=== PATIENT | female | born 1940 | race Hispanic/Latino ===

== ENCOUNTER 2019-09-09 14:12 | Inpatient (IN) | payer MEDICARE ==
[~2019-09-09] VITALS: Ht 154.9 cm; Wt 56.2 kg
[2019-09-09] MEDS ORDERED: ONDANSETRON HCL INJ 2MG/ML 2ML 2 MG/ML VIAL IV ONE (14:44)
[2019-09-09] MEDS ORDERED: FENTANYL CITRATE/PF 100MCG/2 ML INJ IV ONE (14:45)
--- NOTE | 2019-09-09 15:40 | NUR ---
PATIENT TO ROOM 6
[2019-09-09 16:20] LABS: BASOPHILS % 0.4 % (0.0-1.0); EOSINOPHILS % 0.3 % (0.0-6.0); HEMATOCRIT 34.2 % (34.2-44.1); HEMOGLOBIN 10.5 g/dL (12.0-16.0); LYMPHOCYTES # (AUTO) 0.6 (1.0-3.2); LYMPHOCYTES % 7.9 % (18.0-39.1); MEAN CORPUSCULAR HEMOGLOBIN 28.5 pg (28-32); MEAN CORPUSCULAR HGB CONC 30.7 g/dL (31-35); MEAN CORPUSCULAR VOLUME 92.7 fL (81-99); MONOCYTES # (AUTO) 0.3 (0.2-0.8); MONOCYTES % 3.4 % (4.4-11.3); NEUTROPHILS # (AUTO) 6.8 (2.1-6.9); NEUTROPHILS % 86.2 % (38.7-80.0); PLATELET COUNT 204 x10e3/uL (140-360); RED BLOOD COUNT 3.69 x10e6/uL (3.6-5.1); RED CELL DISTRIBUTION WIDTH 18.1 % (11.7-14.4)
--- NOTE | 2019-09-09 16:23 | Diagnostic Imaging Report ---
EXAMINATION: CHEST SINGLE (PORTABLE) INDICATION: Abdominal pain COMPARISON: None FINDINGS: LINES/TUBES:None LUNGS:The lungs are moderately inflated. There is perihilar fullness and indistinctness of the pulmonary vasculature. PLEURA:No pleural effusion or pneumothorax. MEDIASTINUM:The heart is mildly enlarged. Atherosclerotic calcifications of the thoracic aorta. BONES/SOFT TISSUES:No acute osseous injury. Left subclavian vascular stent. ABDOMEN:No free air under the diaphragm. IMPRESSION: Pulmonary interstitial edema and mild cardiomegaly. Signed by: Dodie Molina MD on 09/09/2019 4:20 PM
--- NOTE | 2019-09-09 16:30 | Emergency Department Note ---
History of Present Illnes History of Present Illness Chief Complaint: Abdominal Complaints History of Present Illness This is a 78 year old female who presents emergency department for left upper quadrant abdominal pain. Pain started today. She also has some nausea and vomiting. She has had this pain in the past is secondary to diverticulitis. She has not tried anything at home. Historian: Patient, Family Member Arrival Mode: Car Fabric Normalizer Required: No Onset (how long ago): day(s) (1) Location: LUQ Quality: Sharp Radiation: Reports non-radiation Severity: severe Onset quality: gradual Duration (how long): day(s) (1) Timing of current episode: constant Progression: worsening Chronicity: recurrent Relieving factors: none Exacerbating factors: none Associated symptoms: Reports denies other symptoms Treatments prior to arrival: none Past Medical/Family History Physician Review I have reviewed the patient's past medical and family history. Any updates have been documented here. Past Medical History Recent Fever: No Clinical Suspicion of Infectio: No New/Unexplained Change in Ment: No Past Medical History: Hypertension, Diabetes, DE, ESRD, Hemodyalisis, Hyperlipedemia Past Surgical History: Cholecysctectomy, Hip Replacement, Cataract Removal Social History Physically hurt or threatened: No Review of Systems Review of Systems Constitutional: Reports no symptoms, Reports as per HPI EENTM: Reports no symptoms Cardiovascular: Reports no symptoms Respiratory: Reports no symptoms Gastrointestinal: Reports no symptoms, Reports as per HPI, Reports abdominal pain (LUQ), Reports nausea, Reports vomiting Genitourinary: Reports no symptoms Musculoskeletal: Reports no symptoms Integumentary: Reports no symptoms Neurological: Reports no symptoms Psychological: Reports no symptoms Endocrine: Reports no symptoms Hematological/Lymphatic: Reports no symptoms Physical Exam Related Data Allergies: Coded Allergies: Penicillins (Verified Allergy, Unknown, 09/09/19) Triage Vital Signs Vital Signs Date Time Temp Pulse Resp B/P (MAP) Pulse Ox O2 Delivery O2 Flow Rate FiO2 09/09/19 14:23 98.2 81 18 230/95 95 Room Air Vital signs reviewed: Yes Physical Exam CONSTITUTIONAL Constitutional: Present well-developed, Present well-nourished, Present distressed HENT HENT: Present normocephalic, Present atraumatic, Present oropharynx clear/moist, Present nose normal HENT L/R: Present left ext ear normal, Present right ext ear normal EYES Eyes: Reports PERRL, Reports conjunctivae normal NECK Neck: Present ROM normal PULMONARY Pulmonary: Present effort normal, Present breath sounds normal CARDIOVASCULAR Cardiovascular: Present regular rhythm, Present heart sounds normal, Present capillary refill normal, Present normal rate GASTROINTESTINAL Abdominal: Present soft, Present nontender, Present bowel sounds normal, Present tender (LUQ) GENITOURINARY Genitourinary: Present exam deferred SKIN Skin: Present warm, Present dry MUSCULOSKELETAL Musculoskeletal: Present ROM normal NEUROLOGICAL Neurological: Present alert, Present oriented x 3, Present no gross motor or sensory deficits PSYCHOLOGICAL Psychological: Present mood/affect normal, Present judgement normal Results Laboratory Result Diagram: 09/09/19 1439 Laboratory Laboratory Tests Test 09/09/19 14:39 White Blood Count 7.84 x10e3/uL (4.8-10.8) Red Blood Count 3.69 x10e6/uL (3.6-5.1) Hemoglobin 10.5 g/dL (12.0-16.0) Hematocrit 34.2 % (34.2-44.1) Mean Corpuscular Volume 92.7 fL (81-99) Mean Corpuscular Hemoglobin 28.5 pg (28-32) Mean Corpuscular Hemoglobin Concent 30.7 g/dL (31-35) Red Cell Distribution Width 18.1 % (11.7-14.4) Platelet Count 204 x10e3/uL (140-360) Neutrophils (%) (Auto) 86.2 % (38.7-80.0) Lymphocytes (%) (Auto) 7.9 % (18.0-39.1) Monocytes (%) (Auto) 3.4 % (4.4-11.3) Eosinophils (%) (Auto) 0.3 % (0.0-6.0) Basophils (%) (Auto) 0.4 % (0.0-1.0) Neutrophils # (Auto) 6.8 (2.1-6.9) Lymphocytes # (Auto) 0.6 (1.0-3.2) Monocytes # (Auto) 0.3 (0.2-0.8) Eosinophils # (Auto) 0.0 (0.0-0.4) Basophils # (Auto) 0.0 (0.0-0.1) Absolute Immature Granulocyte (auto 0.14 x10e3/uL (0-0.1) Lab results reviewed: Yes Imaging Imaging results reviewed: Yes Diagnostics Tests Diagnostic test(s) reviewed: Yes Assessment & Plan Medical Decision Making MDM 78-year-old female with left sided abdominal pain. This has been recurrent and u sually due to her diverticulitis. She states her pain is similar to prior episodes. She has not had anything at home. Exam shows left-sided abdominal tenderness to palpation. CT abdomen and pelvis as well as labs are significant for abscess to L hip. Vanc/Cefepime given and cultures drawn. Discussed patient with Dr. [facility] who believes this is likely 2/2 chronic bursitis. Of note chronic umbilical hernia noted. Discussed patient with inpatient medicine who have agreed to admit for abdominal pain, intractable N/V and ortho eval in the AM for hip effusion. Assessment & Plan Final Impression: (1) Abdominal pain Depart Disposition: ADMITTED Last Vital Signs Date Time Temp Pulse Resp B/P (MAP) Pulse Ox O2 Delivery O2 Flow Rate FiO2 09/09/19 14:23 98.2 81 18 230/95 95 Room Air Medications in the ED Fentanyl Citrate 25 mcg ONCE ONCE IV ; Start 09/09/19 at 14:45; Stop 09/09/19 at 15:08; Status DC Ondansetron HCl 4 mg NOW ONCE IV ; Start 09/09/19 at 14:44; Stop 09/09/19 at 15:08; Status DC Clyde Dimas MD Sep 09, 2019 16:30
[2019-09-09 16:37] LABS: ALBUMIN 3.6 g/dL (3.5-5.0); ALBUMIN/GLOBULIN RATIO 0.7 (0.8-2.0); ANION GAP 20.7 mmol/L (8-16); CALCIUM 9.2 mg/dL (8.4-10.2); CREATININE, SERUM 4.83 mg/dL (0.57-1.11); POTASSIUM 3.7 mmol/L (3.5-5.1)
--- NOTE | 2019-09-09 16:57 | Diagnostic Imaging Report ---
EXAM: CT Abdomen and Pelvis WITH intravenous contrast INDICATION: Abdominal pain COMPARISON: None. TECHNIQUE: Abdomen and pelvis were scanned utilizing a multidetector helical scanner from the lung base to the pubic symphysis after administration of IV contrast. Coronal and sagittal reformations were obtained. Routine protocol was performed. Scan was performed during portal venous phase. IV CONTRAST: 100mL of Isovue 370 ORAL CONTRAST: Water RADIATION DOSE: Total DLP: 238 mGy*cm Dose modulation, iterative reconstruction, and/or weight based adjustment of the mA/kV was utilized to reduce the radiation dose to as low as reasonably achievable. FINDINGS: LOWER THORAX: Smooth interlobular septal thickening and mild diffuse ground glass opacities consistent with pulmonary edema. Multichamber cardiomegaly. Moderate pericardial effusion. HEPATOBILIARY: Diffuse hepatic steatosis. No focal liver lesion. Status post cholecystectomy. Mild biliary ductal dilation likely attributable to reservoir effect. SPLEEN: No splenomegaly. PANCREAS: No focal masses or ductal dilatation. ADRENALS: No adrenal nodules. 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 No renal calculi, hydronephrosis, or solid renal mass lesion. PELVIC ORGANS/BLADDER: Fibroid uterus. PERITONEUM / RETROPERITONEUM: No free air or free fluid. LYMPH NODES: Prominent left pelvic sidewall lymph nodes, likely reactive. VESSELS: Dense atherosclerotic calcifications of the nonaneurysmal abdominal aorta and major branches. GI TRACT: Diverticulosis without CT evidence of diverticulitis. No abnormal bowel thickening. No bowel obstruction. Normal appendix. BONES AND SOFT TISSUES: Status post left proximal femur ORIF. Evaluation of the prosthesis is limited due to streak artifact. An 8.9 x 4.4 cm fluid collection lateral to the greater trochanter has a thick enhancing wall and is concerning for abscess versus infected joint effusion. Mild diffuse osteopenia. No acute osseous injury. Moderate fat-containing ventral umbilical hernia. No herniated bowel. IMPRESSION: Status post left proximal femur ORIF. 8.9 x 4.4 cm fluid collection lateral to the left greater trochanter has a thick enhancing wall and is concerning for abscess versus septic joint effusion. Cardiomegaly, pulmonary edema, and moderate pericardial effusion. Diffuse hepatic steatosis. RECOMMENDATIONS: Left hip arthrocentesis. The above findings were discussed with Dr. Dimas on 09/09/2019 4:39 PM, who responded indicating that the communication was understood. Signed by: Dodie Molina MD on 09/09/2019 4:54 PM
[2019-09-09] MEDS ORDERED: SODIUM CHLORIDE 0.9% 50ML 50 ML ONE (17:01)
[2019-09-09] MEDS ORDERED: IOPAMIDOL 370 MG/ML 200 ML INFUS..BTL INJ ONE (17:01)
[2019-09-09] MEDS ORDERED: CEFEPIME 2 GM/NS 0.9% 100 ML 100 ML IV SCH ×2 (17:30)
[2019-09-09] MEDS ORDERED: HYDRALAZINE HCL 20 MG/ML VIAL IV STA (17:35)
--- NOTE | 2019-09-09 17:47 | Diagnostic Imaging Report ---
Exam: Left hip 2 views History: Pain Comparison: None. Findings: No acute fracture. Fixation of the left femur with 2 screws in the femoral neck and intramedullary alanna for prior fracture with healed post traumatic deformity. Lucency around the femoral neck screws. Vascular calcifications. Impression: No acute osseous abnormality Signed by: Dr. Uche Carrero M.D. on 09/09/2019 5:43 PM
--- NOTE | 2019-09-09 17:56 | NUR ---
LACTIC ACID/BLOOD CULTURES DRAWN
[2019-09-09] MEDS ORDERED: CEFEPIME 1GM/NS 0.9% 50 ML 50 ML IV SCH (18:00)
--- NOTE | 2019-09-09 18:00 | NUR ---
DR. JACOBO AWARE BLOOD PRESSURE IS ELEVATED
[2019-09-09] MEDS: CEFEPIME 1GM/NS 0.9% 50 ML 50 ML IV SCH (18:10)
[2019-09-09] MEDS: VANCOMYCIN 500MG/NS 0.9% 100ML 100 ML IV SCH (18:52)
[2019-09-09] MEDS ORDERED: ONDANSETRON HCL INJ 2MG/ML 2ML 2 MG/ML VIAL IV PRN (19:00)
[2019-09-09 19:16] LABS: BILIRUBIN,URINE NEGATIVE (NEGATIVE); CLARITY,URINE SL CLOUDY (CLEAR); COLOR,URINE STRAW (YELLOW); KETONES,URINE TRACE (NEGATIVE); LEUKOCYTE ESTERASE ,URINE NEGATIVE (NEGATIVE); NITRITE,URINE NEGATIVE (NEGATIVE); PROTEIN,URINE DIPSTICK >=300 (NEGATIVE); URINE UROBILINOGEN 0.2 mg/dL (0.2 - 1)
[2019-09-09 19:28] LABS: BACTERIA,URINE MODERATE /HPF
[2019-09-09] MEDS ORDERED: DEXTROSE 50% SYRINGE 50 ML IV PRN (19:45)
--- NOTE | 2019-09-09 19:55 | NUR ---
2ND SET OF BLOOD CULTURES AND LACTIC OBTAINED
[2019-09-09] MEDS ORDERED: FENTANYL CITRATE/PF 100MCG/2 ML INJ IV SCH (20:00)
--- OUTSIDE RECORDS SUMMARY | 2019-09-09 20:30 | XMS REPORT | Continuity of Care Document ---
Author Author [email or web address] [email or web address] Address Unknown Phone Unavailable Care Team Providers Care Hog Tender Name Role Phone [employer] Unavailable Un available Problems Problem Status Onset Date Classification Date Reported Comments Source Onychomycosis - Dermatophytosis of nail Active Diagnosis 01/30/2014 Isaias Renes myalgia/myositis Active Diagnosis 01/30/2014 Isaias A Maislos Arthritis Active Diagnosis 01/30/2014 Isaias Renes Diabetes IDDM Vas Active Diagnosis 01/30/2014 Isaias A Maislos Pain Active Diagnosis 01/30/2014 Isaias Vinson Bursitis of Achilles Tendonitis Active Diagnosis 1 04/02/2013 Isaias Vinson Onychomycosis Active Problem 06/18/2014 [facility] Ingrowing nail Active Problem 06/18/2014 [facility] Diabetes mellitus-NID Active Problem 06/18/2014 [facility] Hammer toe Active Problem 06/18/2014 [facility] Medications Medication Details Route Status Patient Instructions Ordering Provider Order Date Source Lantus Unknown NA Active Mais los Isaias A Maislos Vytorin Unknown NA Active Mais los Isaias A Maislos Clonidine HCl Unknown NA Active Mais los Isaias A Maislos GlipiZIDE Unknown NA Active Mais los Isaias A Maislos Metformin HCl Unknown NA Active Mais los Isaias A Maislos Protonix Unknown NA Active Mais los Isaias A Maislos Cartia XT Unknown NA Active Mais los Isaias A Maislos Allergies, Adverse Reactions, Alerts Substance Category Reaction Severity Reaction type Status Date Reported Comments Source Bactrim Adverse Reaction Info Not Available Adverse Reaction Active 01/14/2014 Isaias Vinson Immunizations No Data Provided for This Section Results No Data Provided for This Section Pathology Reports No Data Provided for This Section Diagnostic Reports No Data Provided for This Section Consultation Notes No Data Provided for This Section Discharge Summaries No Data Provided for This Section History and Physicals No Data Provided for This Section Vital Signs Vital Sign Value Date Comments Source Weight 145 01/14/2014 Isaias A Maislos Height 61 1 03/17/2013 Isaias A Maislos Heart Rate 71 01/14/2014 Isaias A Maislos Diastolic (mm Hg) 66 01/14/2014 Isaias A Maislos Systolic (mm Hg) 141 01/14/2014 Isaias A Maislos Weight 145 08/14/2013 Isaias A Maislos Height 61 0 08/14/2013 Isaias A Maislos Heart Rate 85 08/14/2013 Isaias A Maislos Diastolic (mm Hg) 105 08/14/2013 Isaias A Maislos Systolic (mm Hg) 196 08/14/2013 Isaias A Maislos Weight 145 05/06/2013 Isaias A Maislos Height 61 0 05/06/2013 Isaias A Maislos Heart Rate 85 05/06/2013 Isaias A Maislos Diastolic (mm Hg) 105 05/06/2013 Isaias A Maislos Systolic (mm Hg) 196 05/06/2013 Isaias A Maislos Weight 145 03/04/2013 Isaias A Maislos Height 61 0 03/04/2013 Isaias A Maislos Heart Rate 85 03/04/2013 Isaias A Maislos Diastolic (mm Hg) 105 03/04/2013 Isaias A Maislos Systolic (mm Hg) 196 03/04/2013 Isaias A Maislos Encounters Location Location Details Encounter Type Encounter Number Reason For Visit Attending Provider ADM Date DC Date Status Source Isaias Vinson DPM, [place] Follow-Up [id number] 03/04/19 14 03/04/2013 Isaias Carlos Maislos Isaias Carlos AARON Vinson PA Follow-Up [id number] 03/04/19 14 03/04/2013 [facility] Isaias Vinson, NICOLEM, PA Follow-Up [id number] 03/04/19 14 03/04/2013 Isaias Vinson, DPM, PA Follow-Up [id number] 03/04/19 14 03/04/2013 Isaias Vinson, NICOLEM, PA Follow-Up [id number] 03/04/19 14 03/04/2013 Isaias Vinson, AARON, PA Follow-Up [id number] 05/07/19 14 05/06/2013 Isaias Vinson, AARON, PA Follow-Up [id number] 05/07/19 14 05/06/2013 [facility] Isaias Vinson, AARON, PA Follow-Up [id number] 05/07/19 14 05/06/2013 Isaias Vinson, AARON, PA Follow-Up [id number] 05/07/19 14 05/06/2013 Isaias Vinson DPM, PA Follow-Up [id number] 08/15/19 14 08/14/2013 [facility] Isaias Vinson DPM, PA Follow-Up [id number] 08/15/19 14 08/14/2013 Isaias Vinson, DPM, PA Follow-Up [id number] 08/15/19 14 08/14/2013 Isaias Vinson, DPM, PA Follow-Up [id number] 01/15/20 14 01/14/2014 [facility] Isaias Vinson, DPM, PA Follow-Up [id number] 01/15/20 14 01/14/2014 Isaias Vinson [facility] diabetic shoes [id number] 06/18/19 15 06/17/2014 [facility] Procedures No Data Provided for This Section Assessment and Plan No Data Provided for This Section Plan of Care No Data Provided for This Section Social History Social History Date Source Social History ElementQualifiersDate Rep orted Tobacco Use: . Are you a:: never smoker June 17, 2014 06/17/2014 [facility] Social History ElementQualifiersDate Rep orted Illegal Drugs no. Jan 14, 2014 Tobacco Use: no. Are you a:: never smoker Jan 14, 2014 Alcohol: no. Jan 14, 2014 01/14/2014 Isaias Vinson Family History Value Date S ource QualifierDescriptionCommentDate Reported Father heart attack Oct 22, 2013 10/29/2013 Isaias Vinson QualifierDescriptionCommentDate Reported Father heart attack May 06, 2013 05/11/2013 Isaias Vinson QualifierDescriptionCommentDate Reported Father heart attack Mar 04, 2013 03/09/2013 Isaias Vinson Advance Directives No Data Provided for This Section Functional Status No Data Provided for This Section
--- OUTSIDE RECORDS SUMMARY | 2019-09-09 20:30 | XMS REPORT ---
Author VIVEK [facility] eClinicalWorks Address Unknown Phone Unavailable Care Team Providers Care Front Desk Host Name Role Phone Sekou Bueno CP Unavailable Encounters Encounter Location Date Follow-Up Isaias Vinson [facility] Jan 14, 2014 diabetic shoes [facility] June 17, 2014 Follow-Up [facility]aias [facility] Mar 04, 2013 Follow-Up [facility]as [facility] May 06 4 Follow-Up [facility]as [facility] August 14, 2013 Problems Problem Type Condition ICD-9 Code Onset Dates Condition Statu s Problem Onychomycosis 110.1 Active Problem Ingrowing nail 703.0 Active Problem Diabetes mellitus-NID 250.00 Active Problem Hammer toe 735.4 Active Social History Social History Element Qualifiers Date Reported Tobacco Use: . Are you a:: never smoker June 17 Summary Purpose eClinicalWorks Submission
--- OUTSIDE RECORDS SUMMARY | 2019-09-09 20:30 | XMS REPORT ---
Author Author Natalie Vinson [facility] eClinicalWorks Address Unknown Phone Unavailable Care Team Providers Care White Metal Caster Name Role Phone Isaias Vinson Unavailable Allergies, Adverse Reactions, Alerts Substance Reaction Event Type Bactrim Info Not Available Drug Allergy Encounters Encounter Location Date Follow-Up [facility] Mar 04, 2013 Follow-Up [facility] May 06 4 Follow-Up [facility] August 14, 2013 Problems Problem Type Condition ICD-9 Code Onset Dates Condition Statu s Assessment Onychomycosis - Dermatophytosis of nail 110.1 Active Assessment myalgia/myositis 729.1 Active Assessment Arthritis 716.97 Active Assessment Diabetes IDDM Vas 250.71 Active Assessment Pain 729.5 Active Problem Onychomycosis - Dermatophytosis of nail 110.1 Active Problem Pain 729.5 Active Problem Arthritis 716.97 Active Problem Diabetes IDDM Vas 250.71 Active Assessment Bursitis of Achilles Tendonitis 726.71 Active Problem myalgia/myositis 729.1 Active Problem Bursitis of Achilles Tendonitis 726.71 Active Medications Medication Code System Code Instructions Start Date End Date Status D[facility] [address] Active Unknown Cartia XT [facility] [address]-49 Active Unknown Metformin HCl [facility] [address]-33 Active Unk nown Lantus [facility] [address]-42 Active Unknown Vytorin [facility] [address]-49 Active Unknown Clonidine HCl [facility] [address]-12 Active Unk nown Protonix [facility] [address]-40 Active Unknown Social History Social History Element Qualifiers Date Reported Illegal Drugs no. Oct 22, 2013 Tobacco Use: no. Are you a:: never smoker Oct 22, 2013 Alcohol: no. Oct 22, 2013 Family history Qualifier Description Comment Date Reported Father heart attack Oct 22, 2013 Vital Signs Date/Time: August 14, 2013 Weight 145 lbs Height 61 in Cardiac Monitoring Heart Rate 85 /min Blood Pressure Diastolic 105 mm Hg Blood Pressure Systolic 196 mm Hg Summary Purpose eClinicalWorks Submission
--- OUTSIDE RECORDS SUMMARY | 2019-09-09 20:30 | XMS REPORT ---
Author Author Natalie Vinson Organization [employer] Address Unknown Phone Unavailable Care Team Providers Care Squeezer Operator Name Role Phone Isaias Vinson Unavailable Allergies, Adverse Reactions, Alerts Substance Reaction Event Type Bactrim Info Not Available Drug Allergy Encounters Encounter Location Date Follow-Up [facility] Mar 04, 2013 Follow-Up [facility] May 06 4 Problems Problem Type Condition ICD-9 Code Onset [...] Start Date End Date Status Dosage GlipiZIDE [facility] [address]-72 Active Unknown Vytorin [facility] [address]-46 Active Unknown Clonidine HCl [facility] [address]-21 Active Unkn own Metformin HCl [facility] [address]-20 Active Unkn own Protonix [facility] [address]-71 Active Unknown Lantus [facility] [address]-95 Active Unknown Cartia XT [facility] [address]-25 Active Unknown Social History Social History Element Qualifiers Date Reported Illegal Drugs no. May 06, 2013 Tobacco Use: no. Are you a:: never smoker April Alcohol: no. May 06, 2013 Family history Qualifier Description Comment Date Reported Father heart attack May 06, 2013 Vital Signs Date/Time: May 06, 2013 Weight 145 lbs Height 61 inches Cardiac Monitoring Heart Rate 85 Beats per Minute Blood Pressure Diastolic 105 mm Hg Blood Pressure Systolic 196 mm Hg Summary Purpose eClinicalWorks Submission
--- OUTSIDE RECORDS SUMMARY | 2019-09-09 20:30 | XMS REPORT ---
Author Author Natalie Vinson Organization [employer]Works Address Unknown Phone Unavailable Care Team Providers Care Fisher Trap Name Role Phone Isaias Vinson Unavailable Allergies, Adverse Reactions, Alerts Substance Reaction Event Type Bactrim Info Not Available Drug Allergy Encounters Encounter Location Date Follow-Up [facility] Mar 04, 2013 Problems Problem Type Condition ICD-9 Code [...] Instructions Start Date End Date Status Dosage Lantus [facility] [place] [address]-76 100 UNIT/ML Subcutaneous Once a day Active 0.02 ml Vytorin [facility] [place]] [address]-41 Active Unknown Clonidine HCl [facility] [place] [address]-54 Active Unkn own GlipiZIDE [facility] [place] 2] [address]-22 Active Unknown Metformin HCl [facility] [place] 2] [address]-33 Active Unkn own Protonix [facility] [place] 2] [address]-57 Active Unknown Cartia XT [facility] [place] 2] [address]-63 Active Unknown Social History Social History Element Qualifiers Date Reported Illegal Drugs no. Mar 04, 2013 Tobacco Use: no. Are you a:: never smoker Mar 04, 2013 Alcohol: no. Mar 04, 2013 Family history Qualifier Description Comment Date Reported Father heart attack Mar 04, 2013 Vital Signs Date/Time: Mar 04, 2013 Weight 145 lbs Height 61 inches Cardiac Monitoring Heart Rate 85 Beats per Minute Blood Pressure Diastolic 105 mm Hg Blood Pressure Systolic 196 mm Hg Summary Purpose eClinicalWorks Submission
--- OUTSIDE RECORDS SUMMARY | 2019-09-09 20:30 | XMS REPORT ---
Author Author Natalie Vinson [facility] eClinicalWorks Address Unknown Phone Unavailable Care Team Providers Care Wire Roller Name Role Phone Isaias Vinson Unavailable Allergies, Adverse Reactions, Alerts Substance Reaction Event Type Bactrim Info Not Available Drug Allergy Encounters Encounter Location Date Follow-Up [facility] Jan 14, 2014 Follow-Up [facility] Mar 04, 2013 Follow-Up [facility] May 06 Follow-Up [facility] August 14, [...] Instructions Start Date End Date Status Dosage Protonix [facility] [address]-37 Active Unknown [facility] [address]-16 Active Unknown [facility] [address]-36 Active Unk nown [facility] [address]-99 Active Unknown Metformin HCl [facility] [address]-45 Active Unk nown Lantus [facility] [address]-07 Active Unknown Cartia XT [facility] [address]-05 Active Unknown Social History Social History Element Qualifiers Date Reported Illegal Drugs no. Jan 14, 2014 Tobacco Use: no. Are you a:: never smoker Jan 14, 2014 Alcohol: no. Jan 14, 2014 Vital Signs Date/Time: Jan 14, 2014 Weight 145 lbs Height 61 in Cardiac Monitoring Heart Rate 71 /min Blood Pressure Diastolic 66 mm Hg Blood Pressure Systolic 141 mm Hg Summary Purpose eClinicalWorks Submission
--- OUTSIDE RECORDS SUMMARY | 2019-09-09 20:31 | XMS REPORT | Continuity of Care Document ---
Author Author [facility] t Organization [facility] Address [address] [place] [address] Phone Unavailable Care Team Providers Care Artist Representative Name Role Phone Barbie Dimas Unavailable Payers Payer Name Policy Type Policy Number Effective Date Expiration Date S ource Problems Condition Name Condition Details Condition Category Status Onset Date Resolution Date Last Treatment Date Treating Clinician Comments Source myalgia/myositis myal harshal/myositis Active Diagnosis 01/30/2014 Isaias Renes Diagnosis Active 2014-01-30 03:03:3 5 Dee Hoffmann Arthritis Arth ritis Active Diagnosis 01/30/2014 Isaias A Edgards Diagnosis Active 2014-01-30 03:03:35 Dee Hoffmann Diabetes IDDM Vas Diab etes IDDM Vas Active Diagnosis 01/30/2014 Isaias A Edgards Diagnosis Active 2014-01-30 03:03:3 5 Dee Hoffmann Pain Pain Active Diagnosis 01/30/2014 Isaias A Edgards Diagnosis Active 2014-01-30 03:03:35 Dee Hoffmann Bursitis of Achilles Tendonitis Bursitis of Achilles Tendonitis Active Diagnosis 01/30/2014 Isaias A Edgards Diagnosis Active 2014-01-30 03:03:35 Dee Hoffmann Onychomycosis Onyc homycosis Active Problem 06/18/2014 [facility] Problem Active 2014-06-18 02:11:16 Dee Hoffmann Ingrowing nail Ingr owing nail Active Problem 06/18/2014 [facility] Problem Active 2014-06-18 02:11:16 Dee Hoffmann Diabetes mellitus-NID Diab etes mellitus-NID Active Problem 06/18/2014 [facility] Problem Active 2014-06-18 0 2:11:16 Dee Hoffmann Hammer toe [facility] toe Active Problem 06/18/2014 [facility] Problem Active 2014-06-18 02:11:16 Dee Hoffmann Allergies, Adverse Reactions, Alerts Allergy Name Allergy Type Status Severity Reaction(s) Onset Date Inacti ve Date Treating Clinician Comments Source ranitidine HCl DA Active U 2019-07-26 00:00:00 [facility] Penicillins DA Active U 2019-07-26 00:00:00 [facility] sulfamethoxazole DA Active ND 2019-07-26 00:00:00 [facility] trimethoprim DA Active ND 2019-07-26 00:00:00 [facility] Penicillins DA Active U 2018-12-12 00:00:00 [facility] ranitidine HCl DA Active U 2018-10-19 00:00:00 [facility] sulfamethoxazole DA Active ND 2018-10-19 00:00:00 [facility] trimethoprim DA Active ND 2018-10-19 00:00:00 [facility] sulfamethoxazole DA Active ND 2014-11-14 00:00:00 [facility] trimethoprim DA Active ND 2014-11-14 00:00:00 [facility] Bactrim Bactrim Active Info Not Available 2014-01-14 00:00:00 Dee Hoffmann sulfamethoxazole DA Active U 2012-09-26 00:00:00 [facility] trimethoprim DA Active U 2012-09-26 00:00:00 [facility] ranitidine HCl DA Active U 2012-09-26 00:00:00 [facility] Family History Family Member Diagnosis Comments Start Date Stop Date Source Unknown Family Member Family History 2013-03-09 02:45:24 2 02:45:24 Dee Hoffmann Social History Social Habit Start Date Stop Date Quantity Comments Source TobaccoUse: 2014-06-17 00:00:00 2014-06-17 00:00:00 [facility] IllegalDrugs 2014-01-14 00:00:00 2014-01-14 00:00:00 [facility] Medications Ordered Medication Name Filled Medication Name Start Date Stop Da te Current Medication? Ordering Clinician Indication Dosage Frequency Signature (SIG) Comments Components Source Carloztus 2014-01-30 03:03:35 Yes Isaias Vinson Un known [facility] Vytorin 2014-01-30 03:03:35 Yes Isaias Velazquezansleygetachew U nknown [facility] Clonidine HCl 2014-01-30 03:03:35 Yes Isaias Vinson Unknown [facility] GlipiZIDE 2014-01-30 03:03:35 Yes Isaias Vinson Unknown [facility] Metformin HCl 2014-01-30 03:03:35 Yes Isaias Vinson Unknown [facility] Protonix 2014-01-30 03:03:35 Yes Isaias Vinson Unknown [facility] Cartia XT 2014-01-30 03:03:35 Yes Isaias Vinson Unknown [facility] Vital Signs Vital Name Observation Time Observation Value Comments Source Weight 2014-01-14 16:00:00 [facility] Height 2014-01-14 16:00:00 [facility] Heart Rate 2014-01-14 16:00:00 [facility] Diastolic (mm Hg) 2014-01-14 16:00:00 [facility] Systolic (mm Hg) 2014-01-14 16:00:00 [facility] Weight 2013-08-14 20:15:00 [facility] Height 2013-08-14 20:15:00 [facility] Heart Rate 2013-08-14 20:15:00 [facility] Diastolic (mm Hg) 2013-08-14 20:15:00 [facility] Systolic (mm Hg) 2013-08-14 20:15:00 [facility] Weight 2013-05-06 15:30:00 [facility] Height 2013-05-06 15:30:00 [facility] Heart Rate 2013-05-06 15:30:00 [facility] Diastolic (mm Hg) 2013-05-06 15:30:00 [facility] Systolic (mm Hg) 2013-05-06 15:30:00 [facility] Weight 2013-03-04 15:30:00 [facility] Height 2013-03-04 15:30:00 [facility] Heart Rate 2013-03-04 15:30:00 [facility] Diastolic (mm Hg) 2013-03-04 [facility] Systolic (mm Hg) 2013-03-04 15:30:00 [facility] Procedures This patient has no known procedures. Encounters Start Date/Time End Date/Time [facility]counter Type [facility] ID Source 2019-07-04 14:39:00 2019-07-04 14:39:00 Outpatient E [id number] [facility] 2014-06-17 11:04:00 2014-06-17 11:04:00 [facility] [id number] [employer]ClinicalWorks 2014-01-14 10:00:00 2014-01-14 10:00:00 Outpatient Isaias Vinson DPM, [place] [address] eClinicalWork s 2013-08-14 15:15:00 2013-08-14 15:15:00 Outpatient Isaias Vinson DPM, [place] [address] eClinicalWork s 2013-05-06 10:30:00 2013-05-06 10:30:00 Outpatient Isaias Vinson DPM, [place] [address] eClinicalWork s 2013-03-04 09:30:00 2013-03-04 09:30:00 Outpatient Isaias Vinson DPM, [place] [address] eClinicalWork s Results Test Description Test Time Test Comments Results Result Comments Source HIP LEFT 2-3 VW (+/- PELVIS) 2019-09-09 17:42:00 [place] [address] Patient Name: VIVEK LÓPEZ MR #: [id number] : 1940 Age/Sex: 78/F Req #: [id number] Adm Physician: Ordered by: Clyde Dimas MD Report #: [id number] Location: ER Room/Bed: Procedure: [id number] DX/HIP LEFT 2-3 VW (+/- PELVIS) Exam Date: Exam Time: REPORT STATUS: Signed Exam: Left hip 2 views History: Pain Comparison: None. Findings: No acute fracture. Fixation of the left femur with 2 screws in the femoral neck and intramedullary alanna for prior fracture with healed post traumatic deformity. Lucency around the femoral neck screws. Vascular calcifications. Impression: No acute osseous abnormality Signed by: Dr. Spencer Oscar M.D. on 09/09/2019 5:43 PM Dictated By: SPENCER OSCAR MD 42 Transcribed By: ELMER on 09/09/191742 COPY TO: Clyde Dimas MD CT ABDOMEN/PELVIS W 2019-09-09 16:39:00 [place] [address] Patient Name: VIVEK LÓPEZ MR #: [id number] : 1940 Age/Sex: 78/F Req #: [id number] Adm Physician: Ordered by: Clyde Dimas MD Report #: [id number] Location: ER Room/Bed: Procedure: [id number] CT/CT ABDOMEN/PELVIS W Exam Date: 09/09/19 Exam Time: 1615 REPORT STATUS: Signed EXAM: CT Abdomen and Pelvis WITH intravenous contrast INDICATION: Abdominal pain COMPARISON: None. TECHNIQUE: Abdomen and pelvis were scanned utilizing a multidetector helical scanner from the lung base to the pubic symphysis after administration of IV contrast. Coronal and sagittal reformations were obtained. Routine protocol was performed. Scan was performed during portal venous phase. IV CONTRAST: 100mL of Isovue 370 ORAL CONTRAST: Water RADIATION DOSE: Total DLP: 238 mGy*cm Dose modulation, iterative reconstruction, and/or weight based adjustment of the mA/kV was utilized to reduce the radiation dose to as low as reasonably achievable. FINDINGS: LOWER THORAX: Smooth interlobular septal thickening and mild diffuse ground glass opacities consistent with pulmonary edema. Multichamber cardiomegaly. Moderate pericardial effusion. HEPATOBILIARY: Diffuse hepatic steatosis. No focal liver lesion. Status post cholecystectomy. Mild biliary ductal dilation likely attributable to reservoir effect. SPLEEN: No splenomegaly. PANCREAS: No focal masses or ductal dilatation. ADRENALS: No adrenal nodules. 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 No renal calculi, hydronephrosis, or solid renal mass lesion. PELVIC ORGANS/BLADDER: Fibroid uterus. PERITONEUM / RETROPERITONEUM: No free air or free fluid. LYMPH NODES: Prominent left pelvic sidewall lymph nodes, likely reactive. VESSELS: Dense atherosclerotic calcifications of the nonaneurysmal abdominal aorta and major branches. GI TRACT: Diverticulosis without CT evidence of diverticulitis. No abnormal bowel thickening. No bowel obstruction. Normal appendix. BONES AND SOFT TISSUES: Status post left proximal femur ORIF. Evaluation of the prosthesis is limited due to streak artifact. An 8.9 x 4.4 cm fluid collection lateral to the greater trochanter has a thick enhancing wall and is concerning for abscess versus infected joint effusion. Mild diffuse osteopenia. No acute osseous injury. Moderate fat- containing ventral umbilical hernia. No herniated bowel. IMPRESSION: Status post left proximal femur ORIF. 8.9 x 4.4 cm fluid collection lateral to the left greater trochanter has a thick enhancing wall and is concerning for abscess versus septic joint effusion. Cardiomegaly, pulmonary edema, and moderate pericardial effusion. Diffuse hepatic steatosis. RECOMMENDATIONS: Left hip arthrocentesis. The above findings were discussed with Dr. Dimas on 09/09/2019 4:39 PM, who responded indicating that the communication was understood. Signed by: Grey Garcia MD on 09/09/2019 4:54 PM Dictated By: GREY GARCIA MD 53 Transcribed By: ELMER on 09/09/191653 COPY TO: Clyde Dimas MD CHEST SINGLE (PORTABLE) 2019-09-09 16:18:00 [place] [address] Patient Name: VIVEK LÓPEZ MR #: [id number] : 1940 Age/Sex: 78/F Req #: [id number] Adm Physician: Ordered by: Clyde Dimas MD Report #: [id number] Location: ER Room/Bed: Procedure: [id number] DX/CHEST SINGLE (PORTABLE) Exam Date: 09/09/19 Exam Time: 1600 REPORT STATUS: Signed EXAMINATION: CHEST SINGLE (PORTABLE) INDICATION: Abdominal pain COMPARISON: None FINDINGS: LINES/TUBES:None LUNGS:The lungs are moderately inflated. There is perihilar fullness and indistinctness of the pulmonary vasculature. PLEURA:No pleural effusion or pneumothorax. MEDIASTINUM:The heart is mildly enlarged. Atherosclerotic calcifications of the thoracic aorta. BONES/SOFT TISSUES:No acute osseous injury. Left subclavian vascular stent. ABDOMEN:No free air under the diaphragm. IMPRESSION: Pulmonary interstitial edema and mild cardiomegaly. Signed by: Grey Garcia MD on 09/09/2019 4:20 PM Dictated By: GREY GARCIA MD 19 Transcribed By: ELMER on 09/09/191619 COPY TO: Clyde Dimas MD AG HEPAT B SURF 2019-08-24 12:45:00 Test Item AG HEPAT B SURF (test code = HBSAG) Nonreactive Index Nonreactive BASIC METABOLIC [id number] 07:37:00* Test Item Value Reference Range Interpretation Comments SODIUM (test code = NA) 136 mmol/L 136-145 N POTASSIUM (test code = K) 3.9 mmol/L 3.5-5.1 N CHLORIDE (test code = CL) 98.0 mmol/L 98-107 N CARBON DIOXIDE (test code = CO2) 31.0 mmol/L 21-32 N ANION GAP (test code = GAP) 10.9 10-20 N GLUCOSE (test code = GLU) 131 mg/dL 74-106 H BLOOD UREA NITROGEN (test code = BUN) 24 mg/dL 7-18 H GLOMERULAR FILTRATION RATE (test code = GFR) 9 mL/min >=60 Estimated GFR by using Modified MDRD formula.Chronic kidney disease is defined as either kidney damageor GFR <60 mL/min/1.73 m2 for >3 months. CREATININE (test code = CREAT) 4.50 mg/dL 0.55-1.02 H Note change in reference range due to change in reagent. BUN/CREATININE RATIO (test code = BUN/CREA) 5.3 10-20 L CALCIUM (test code = CA) 7.9 mg/dL 8.5-10.1 L [id number] 07:37:00* Test Item Value Reference Range Interpretation Comments ALBUMIN (test code = ALB) 2.7 g/dL 3.4-5.0 L BASIC METABOLIC [id number] 07:33:00* Test Item Value Reference Range Interpretation Comments SODIUM (test code = NA) 136 mmol/L 136-145 N POTASSIUM (test code = K) 3.9 mmol/L 3.5-5.1 N CHLORIDE (test code = CL) 98.0 mmol/L 98-107 N CARBON DIOXIDE (test code = CO2) mmol/L 21-32 ANION GAP (test code = GAP) 10-20 GLUCOSE (test code = GLU) mg/dL 74-106 BLOOD UREA NITROGEN (test code = BUN) mg/dL 7-18 GLOMERULAR FILTRATION RATE (test code = GFR) mL/min >=60 CREATININE (test code = CREAT) mg/dL 0.55-1.02 BUN/CREATININE RATIO (test code = BUN/CREA) 10-20 CALCIUM (test code = CA) mg/dL 8.5-10.1 [id number] 07:33:00* Test Item Value Reference Range Interpretation Comments ALBUMIN (test code = ALB) g/dL 3.4-5.0 Novel Coronavirus 2019 [id number] 14:06:00* Test Item Value Reference Range Interpretation Comments Novel Coronavirus 2019 nCoV (test code = COVID19) Negative Nega tive LIPID PROFILE (CORONARY RISK)2019-08-22 07:52:00* Test Item Value Reference Range Interpretation Comments TRIGLYCERIDES (test code = TRIG) 101 mg/dL 20-150 N CHOLESTEROL (test code = CHOL) 114 mg/dL 0-200 N CHOLESTEROL/HDL RATIO (test code = CHOLHDL) 2.0 RATIO 0-4.9 N RISK ASSOCIATED WITH CHOL/HDL RATIOS: Risk Male Female1/2 AVERAGE 3.43 3.27AVERAGE 4.97 4.442X AVERAGE 9.55 7.053X AVERAGE 23.39 11.04 REFERENCE VALUE IS RELATED TO RISK LEVELS ASRECOMMENDED BY THE ANGELI. HEART, LUNG, AND BLOOD INST. HDL CHOLESTEROL (test code = HDL) 50 mg/dL 40-60 N LIPOPROTEIN LDL (test code = LDL) 57 mg/dL 100-129 L Reference Interval: mg/dL mmol/L Optimal <100 <2.6Near/above optimal 100-129 2.6- 3.3Borderline High 130-159 3.4-4.1High 160-189 4.1-4.9Very High >=190 >=4.9========= This LDL result is a direct measurement.========= BASIC METABOLIC [id number] 07:49:00* Test Item Value Reference Range Interpretation Comments SODIUM (test code = NA) 138 mmol/L 136-145 N POTASSIUM (test code = K) 4.2 mmol/L 3.5-5.1 N CHLORIDE (test code = CL) 96.0 mmol/L 98-107 L CARBON DIOXIDE (test code = CO2) 33.0 mmol/L 21-32 H ANION GAP (test code = GAP) 13.2 10-20 N GLUCOSE (test code = GLU) 103 mg/dL 74-106 N BLOOD UREA NITROGEN (test code = BUN) 29 mg/dL 7-18 H GLOMERULAR FILTRATION RATE (test code = GFR) 10 mL/min >=60 Estimated GFR by using Modified MDRD formula.Chronic kidney disease is defined as either kidney damageor GFR <60 mL/min/1.73 m2 for >3 months. CREATININE (test code = CREAT) 4.40 mg/dL 0.55-1.02 H Note change in reference range due to change in reagent. BUN/CREATININE RATIO (test code = BUN/CREA) 6.6 10-20 L CALCIUM (test code = CA) 7.6 mg/dL 8.5-10.1 L [id number] 07:49:00* Test Item Value Reference Range Interpretation Comments ALBUMIN (test code = ALB) 2.7 g/dL 3.4-5.0 L BASIC METABOLIC [id number] 07:33:00* Test Item Value Reference Range Interpretation Comments SODIUM (test code = NA) 138 mmol/L 136-145 N POTASSIUM (test code = K) 4.2 mmol/L 3.5-5.1 N CHLORIDE (test code = CL) 96.0 mmol/L 98-107 L CARBON DIOXIDE (test code = CO2) mmol/L 21-32 ANION GAP (test code = GAP) 10-20 GLUCOSE (test code = GLU) mg/dL 74-106 BLOOD UREA NITROGEN (test code = BUN) mg/dL 7-18 GLOMERULAR FILTRATION RATE (test code = GFR) mL/min >=60 CREATININE (test code = CREAT) mg/dL 0.55-1.02 BUN/CREATININE RATIO (test code = BUN/CREA) 10-20 CALCIUM (test code = CA) mg/dL 8.5-10.1 [id number] 07:33:00* Test Item Value Reference Range Interpretation Comments ALBUMIN (test code = ALB) g/dL 3.4-5.0 [id number] 06:33:00* Test Item Value Reference Range Interpretation Comments GLYCOSYLATED HEMOGLOBIN (HA1C) (test code = GLYHGB) 5.4 % HbA1 SUGGESTED DIAGNOSIS: HbA1C (%) Diabetic >6.4Prediabetes 5.7 - 6.4Normal <5.7 ESTIMATED AVERAGE GLUCOSE (test code = EAG) 108 MG/DL BASIC METABOLIC [id number] 06:04:00* Test Item Value Reference Range Interpretation Comments SODIUM (test code = NA) 136 mmol/L 136-145 RESU LT VERIFIED BY REPEAT ANALYSIS POTASSIUM (test code = K) 4.2 mmol/L 3.5-5.1 N CHLORIDE (test code = CL) 95.0 mmol/L 98-107 L CARBON DIOXIDE (test code = CO2) 33.0 mmol/L 21-32 H Previously reported result: 33.0 mmol/LEdited by: XAVIER on 08/21/19:0603 ANION GAP (test code = GAP) 12.2 10-20 N GLUCOSE (test code = GLU) 128 mg/dL 74-106 H BLOOD UREA NITROGEN (test code = BUN) 17 mg/dL 7-18 RESULT VERIFIED BY REPEAT ANALYSIS GLOMERULAR FILTRATION RATE (test code = GFR) 15 mL/min >=60 Estimated GFR by using Modified MDRD formula.Chronic kidney disease is defined as either kidney damageor GFR <60 mL/min/1.73 m2 for >3 months. CREATININE (test code = CREAT) 3.00 mg/dL 0.55-1.02 H Note change in reference range due to change in reagent. BUN/CREATININE RATIO (test code = BUN/CREA) 5.7 10-20 L CALCIUM (test code = CA) 8.7 mg/dL 8.5-10.1 N BASIC METABOLIC [id number] 06:00:00* Test Item Value Reference Range Interpretation Comments SODIUM (test code = NA) 136 mmol/L 136-145 RESU LT VERIFIED BY REPEAT ANALYSIS POTASSIUM (test code = K) 4.2 mmol/L 3.5-5.1 N CHLORIDE (test code = CL) 95.0 mmol/L 98-107 L CARBON DIOXIDE (test code = CO2) 33.0 mmol/L 21-32 H ANION GAP (test code = GAP) 10-20 GLUCOSE (test code = GLU) 128 mg/dL 74-106 H BLOOD UREA NITROGEN (test code = BUN) 17 mg/dL 7-18 RESULT VERIFIED BY REPEAT ANALYSIS GLOMERULAR FILTRATION RATE (test code = GFR) 15 mL/min >=60 Estimated GFR by using Modified MDRD formula.Chronic kidney disease is defined as either kidney damageor GFR <60 mL/min/1.73 m2 for >3 months. CREATININE (test code = CREAT) 3.00 mg/dL 0.55-1.02 H Note change in reference range due to change in reagent. BUN/CREATININE RATIO (test code = BUN/CREA) 5.7 10-20 L CALCIUM (test code = CA) 8.7 mg/dL 8.5-10.1 N BASIC METABOLIC [id number] 05:44:00* Test Item Value Reference Range Interpretation Comments SODIUM (test code = NA) 136 mmol/L 136-145 RESU LT VERIFIED BY REPEAT ANALYSIS POTASSIUM (test code = K) 4.2 mmol/L 3.5-5.1 N CHLORIDE (test code = CL) 95.0 mmol/L 98-107 L CARBON DIOXIDE (test code = CO2) mmol/L 21-32 ANION GAP (test code = GAP) 10-20 GLUCOSE (test code = GLU) mg/dL 74-106 BLOOD UREA NITROGEN (test code = BUN) mg/dL 7-18 GLOMERULAR FILTRATION RATE (test code = GFR) mL/min >=60 CREATININE (test code = CREAT) mg/dL 0.55-1.02 BUN/CREATININE RATIO (test code = BUN/CREA) 10-20 CALCIUM (test code = CA) mg/dL 8.5-10.1 COVID 19 INHOUSE [id number] 08:59:00* Test Item Value Reference Range Interpretation Comments COVID 19 INHOUSE AG (test code = [id number]) NEGATIVE Is patient requiring admission or transfer? YIndication for rapid COVID-19 testi ng: Mod Clinical Suspicion- CT ABD PELVIS [id number] 08:49:00 Name: VIVEK FINNEY [facility] : 1940 Age/S: 78 / F [address] [facility]: [id number] Loc: [place] [address] Phys: Lamar Ascencio DO Acct: [id number] Dis Date: Status: REG ER PHONE #: [phone] Exam Date: 08/20/2019814 FAX #: [phone] Reason: abd pain, vomiting, r/o obstruction EXAMS: CPT CODE: [id number] CT ABD PELVIS W/CONT 22229 REASON FOR EXAM: abd pain, vomiting, r/o obstruction EXAM ORDER DATE: 08/20/2019 7:57 AM Ordering M.D.: Lamar Ascencio DO PROCEDURE: Axial CT images were acquired through the abdomen/pelvis at 5 mm intervals. Sagittal and coronal reformatted images were generated. Automated exposure control was utilized for this reduction. Phases of contrast: venous and delayed COMPARISON: CT of the abdomen and pelvis April 30, 2019 and October 19, 2018 FINDINGS: Visualized thorax: Small right-sided pleural effusion and moderate-sized pericardial effusion. There are also groundglass opacities and interlobular septal thickening in the visualized lungs. Three-vessel coronary calcifications are present Hepatobiliary system: Prior cholecystectomy. Hepatic parenchyma appears within normal limits Pancreas: Atrophic Spleen: Normal Adrenal glands: Normal Genitourinary system: The kidneys are atrophic, similar to the prior exam. There is also a simple cortical cyst arising from the midpole of the right kidney which is likely benign. Multiple calcifications in the uterus may represent small phleboliths versus calcified fibroids. Gastrointestinal tract and appendix: Normal. Specifically no bowel distention to suggest obstruction. No abnormal mural thickening is seen. Abdominal vascular structures: Atherosclerotic calcifications are present in the abdominal aorta and the mesenteric arteries and extend into the iliac arteries PAGE 1 Signed Report (CONTINUED) Name: VIVEK FINNEY [facility] : 1940 Age/S: 78 / F [address] Unit #: [id number] Loc: [place] [address] Phys: AscencioLamar Acct: [id number] Dis Date: Status: REG ER PHONE #: [phone] Exam Date: 08/20/2019814 FAX #: [phone] Reason: abd pain, vomiting, r/o obstruction EXAMS: CPT CODE: [id number] CT ABD PELVIS W/CONT 20426 <Continued> Peritoneum and retroperitoneum: No free fluid or free air. No omental or mesenteric masses. No abnormal lymph nodes. Musculoskeletal structures and abdominal wall: Degenerative changes are present in the spine and in the pubic symphysis. Hardware in the left femur is unchanged from the previous exam. Fat-containing ventral hernia is unchanged from th e prior exam. There is a fluid collection in the soft tissues around the p roximal left femur that is unchanged since October 2018. IMPRESSION: No findings of bowel obstruction. No acute intra-ab dominal process. Fat-containing ventral hernia is unchanged from the pre vious examination and no inflammatory changes are seen in the hernia sac . Findings of CHF with pulmonary edema with pleural and pericardial effusions. The pleural effusion is new from the prior CT scan. A sup erimposed pneumonia in the edematous lungs would be difficult to exclude . Location: [facility] at 0849 Reported and signed by: Saroj Butt MD CC: Harsh Gan; Lamar Ascencio DO Technologist:Mae Taylor,RT(R),CT CTDI: DLP: Trn scb Date/Time: 08/20/2019 (0849) [id number] Orig Print D/T : S: 08/20/2019 (8290) PAGE 2 Signed Report - XR CHEST 1 [id number] 07:59:00 FAX: Harsh Rodrigez MD [phone] [place]: St: REG FAX: Nida Meléndez [phone] Name: VIVEK FINNEY [facility] : 1940 Age/S: 78/F [address] [facility] Unit #: [id number] Loc: [place] [address] Phys: Nida Beal MD Acct: [id number] Dis Date: Status: REG ER PHONE #: [phone] Exam Date: 08/20/2019724 FAX #: [phone] Reason: Abdominal Pain EXAMS: CPT CODE: [id number] XR CHEST 1 V 75454 HISTORY: Abdominal Pain TECHNIQUE: AP chest x-ray COMPARISON: 04/30/19 FINDINGS: Bilateral airspace and interstitial opacities. No evident pleural effusion. Cardio megaly. Thoracic aortic vascular calcification. Left subclavian vascular s tent. Thoracic spondylosis. IMPRESSION: Bilate ral airspace and interstitial opacities. Consider pneumonia versus pulmo nary edema. LOCATION: [facility] at 0759 Reported and signed by: Pascale Bravo D.O. CC: Harsh Gan; Nida Beal MD Technologist: RT ANT(R) Trnscrd Date/Time/By: 08/20/2019 (0759) : By: [email or web address] Orig Print D/T: S: 08/20/2019 (0802) PAGE 1 Signed Report BASIC METABOLIC [id number] 07:44:00* Test Item Value Reference Range Interpretation Comments SODIUM (test code = NA) 127 mmol/L 136-145 L POTASSIUM (test code = K) 5.6 mmol/L 3.5-5.1 H CHLORIDE (test code = CL) 89.0 mmol/L 98-107 L CARBON DIOXIDE (test code = CO2) 26.0 mmol/L 21-32 N ANION GAP (test code = GAP) 17.6 10-20 N GLUCOSE (test code = GLU) 254 mg/dL 74-106 H BLOOD UREA NITROGEN (test code = BUN) 44 mg/dL 7-18 H GLOMERULAR FILTRATION RATE (test code = GFR) 8 mL/min >=60 Estimated GFR by using Modified MDRD formula.Chronic kidney disease is defined as either kidney damageor GFR <60 mL/min/1.73 m2 for >3 months. CREATININE (test code = CREAT) 5.00 mg/dL 0.55-1.02 H Note change in reference range due to change in reagent. BUN/CREATININE RATIO (test code = BUN/CREA) 8.8 10-20 L CALCIUM (test code = CA) 8.8 mg/dL 8.5-10.1 N HEPATIC FUNCTION [id number] 07:44:00* Test Item Value Reference Range Interpretation Comments TOTAL PROTEIN (test code = PROT) 8.3 gram/dL 6.4-8.2 H ALBUMIN (test code = ALB) 3.3 g/dL 3.4-5.0 L GLOBULIN (test code = GLOB) 5.0 gram/dL 2.7-4.2 H ALBUMIN/GLOBULIN RATIO (test code = A/G) 0.7 0.75-1.50 L BILIRUBIN TOTAL (test code = BILT) 0.50 mg/dL 0.0-1.0 N BILIRUBIN DIRECT (test code = BILD) 0.18 mg/dL 0.0-0.20 N SGOT/AST (test code = AST) 54 IUnit/L 15-37 H SGPT/ALT (test code = ALT) 41 IUnit/L 12-78 N ALKALINE PHOSPHATASE TOTAL (test code = ALKP) 218 IUnit/L 45-117 H Note change in reference range due to change in reagent. [id number] 07:44:00* Test Item Value Reference Range Interpretation Comments LIPASE (test code = LIP) 55 U/L 73.0-393.0 L HCG SERUM [id number] 07:44:00* Test Item Value Reference Range Interpretation Comments HCG SERUM QUAL (test code = HCGQL) NEGATIVE NEGATIVE This HCGQL test is NOT applicable for MALE patients.Check with nurse about probable order error.If Tumor Marker Test needed, nurse should order test "HCGTU"(Test #550.56779) [id number] 07:44:00* Test Item Value Reference Range Interpretation Comments TROPONIN-I (test code = TROPI) <0.015 ng/mL 0-0.045 N BASIC METABOLIC [id number] 07:34:00* Test Item Value Reference Range Interpretation Comments SODIUM (test code = NA) 127 mmol/L 136-145 L POTASSIUM (test code = K) 5.6 mmol/L 3.5-5.1 H CHLORIDE (test code = CL) 89.0 mmol/L 98-107 L CARBON DIOXIDE (test code = CO2) mmol/L 21-32 ANION GAP (test code = GAP) 10-20 GLUCOSE (test code = GLU) mg/dL 74-106 BLOOD UREA NITROGEN (test code = BUN) mg/dL 7-18 GLOMERULAR FILTRATION RATE (test code = GFR) mL/min >=60 CREATININE (test code = CREAT) mg/dL 0.55-1.02 BUN/CREATININE RATIO (test code = BUN/CREA) 10-20 CALCIUM (test code = CA) mg/dL 8.5-10.1 HEPATIC FUNCTION [id number] 07:34:00* Test Item Value Reference Range Interpretation Comments TOTAL PROTEIN (test code = PROT) gram/dL 6.4-8.2 ALBUMIN (test code = ALB) g/dL 3.4-5.0 GLOBULIN (test code = GLOB) gram/dL 2.7-4.2 ALBUMIN/GLOBULIN RATIO (test code = A/G) 0.75-1.50 BILIRUBIN TOTAL (test code = BILT) mg/dL 0.0-1.0 BILIRUBIN DIRECT (test code = BILD) mg/dL 0.0-0.20 SGOT/AST (test code = AST) IUnit/L 15-37 SGPT/ALT (test code = ALT) IUnit/L 12-78 ALKALINE PHOSPHATASE TOTAL (test code = ALKP) IUnit/L 45-117 [id number] 07:34:00* Test Item Value Reference Range Interpretation Comments LIPASE (test code = LIP) U/L 73.0-393.0 HCG SERUM [id number] 07:34:00* Test Item Value Reference Range Interpretation Comments HCG SERUM QUAL (test code = HCGQL) NEGATIVE NEGATIVE This HCGQL test is NOT applicable for MALE patients.Check with nurse about probable order error.If Tumor Marker Test needed, nurse should order test "HCGTU"(Test #550.27702) [id number] 07:34:00* Test Item Value Reference Range Interpretation Comments TROPONIN-I (test code = TROPI) ng/mL 0-0.045 BASIC METABOLIC [id number] 07:26:00* Test Item Value Reference Range Interpretation Comments SODIUM (test code = NA) mmol/L 136-145 POTASSIUM (test code = K) mmol/L 3.5-5.1 CHLORIDE (test code = CL) mmol/L 98-107 CARBON DIOXIDE (test code = CO2) mmol/L 21-32 ANION GAP (test code = GAP) 10-20 GLUCOSE (test code = GLU) mg/dL 74-106 BLOOD UREA NITROGEN (test code = BUN) mg/dL 7-18 GLOMERULAR FILTRATION RATE (test code = GFR) mL/min >=60 CREATININE (test code = CREAT) mg/dL 0.55-1.02 BUN/CREATININE RATIO (test code = BUN/CREA) 10-20 CALCIUM (test code = CA) mg/dL 8.5-10.1 HEPATIC FUNCTION [id number] 07:26:00* Test Item Value Reference Range Interpretation Comments TOTAL PROTEIN (test code = PROT) gram/dL 6.4-8.2 ALBUMIN (test code = ALB) g/dL 3.4-5.0 GLOBULIN (test code = GLOB) gram/dL 2.7-4.2 ALBUMIN/GLOBULIN RATIO (test code = A/G) 0.75-1.50 BILIRUBIN TOTAL (test code = BILT) mg/dL 0.0-1.0 BILIRUBIN DIRECT (test code = BILD) mg/dL 0.0-0.20 SGOT/AST (test code = AST) IUnit/L 15-37 SGPT/ALT (test code = ALT) IUnit/L 12-78 ALKALINE PHOSPHATASE TOTAL (test code = ALKP) IUnit/L 45-117 [id number] 07:26:00* Test Item Value Reference Range Interpretation Comments LIPASE (test code = LIP) U/L 73.0-393.0 HCG SERUM [id number] 07:26:00* Test Item Value Reference Range Interpretation Comments HCG SERUM QUAL (test code = HCGQL) NEGATIVE NEGATIVE This HCGQL test is NOT applicable for MALE patients.Check with nurse about probable order error.If Tumor Marker Test needed, nurse should order test "HCGTU"(Test #550.80021) [id number] 07:26:00* Test Item Value Reference Range Interpretation Comments TROPONIN-I (test code = TROPI) ng/mL 0-0.045 PROTHROMBIN [id number] 07:21:00* Test Item Value Reference Range Interpretation Comments PROTHROMBIN TIME PATIENT (test code = PTP) 12.4 seconds 9.0-14.0 N INTERNATIONAL NORMAL RATIO (test code = INR) 1.1 0.8-1.2 N The therapeutic range for oral anticoagulant therapy formost indications is an international normalized ratio (INR)of between 2.0 and 3.0. The recommended therapeutic INRrange for various clinical situations is listed below: Clinical Situation INR range Pulmonary e mbolism treatment (2.0-3.0)Venous thrombosis treatmentVenous thrombosis prophylaxis (high risk surgery)Prevention of systemic embolism from: Acute myocardial infarction Valvular heart disease Atrial fibrillation Mechanical prosthetic heart valves (2.5-3.5) IS PATIENT ON ANTICOAGULANTS? NTHROMBOPLASTIN TIME [id number] 07:21:00* Test Item Value Reference Range Interpretation Comments THROMBOPLASTIN TIME PARTIAL (test code = PTT) 31.4 seconds 23.0-37. 0 N IS PATIENT ON ANTICOAGULANTS? NCBC W/O [id number] 07:09:00* Test Item Value Reference Range Interpretation Comments WHITE BLOOD CELL (test code = WBC) 9.3 K/mm3 4.5-12.5 N RED BLOOD CELL (test code = RBC) 3.16 mill/mm3 3.7-5.2 L HEMOGLOBIN (test code = HGB) 9.1 gram/dL 11.5-15.5 L HEMATOCRIT (test code = HCT) 29.2 % 36.0-46.0 L MEAN CELL VOLUME (test code = MCV) 92.4 fL 80-98 N MEAN CELL HGB (test code = MCH) 28.8 picogram 27.0-33.0 N MEAN CELL HGB CONCETRATION (test code = MCHC) 31.2 gram/dL 33.0-36. 0 L RED CELL DISTRIBUTION WIDTH (test code = RDW) 17.1 % 11.6-16. 2 H PLATELET COUNT (test code = PLT) 212 K/mm3 150-450 N MEAN PLATELET VOLUME (test code = MPV) 12.0 fL 6.7-11.0 H [id number] 14:39:00 RUN DATE: 07/31/19 [facility] PAGE 1 RUN TIME: 1439 Specimen Inqui ry RUN USER: INTERFACE PATIENT: VIVEK FINNEY ACCT #: [id number] LOC: PARISH #: [id number] AGE/SX: 78/F ROOM: [facility] RE07/26/19REG DR: Gonzalo Camarena MD : 39 BED: A DIS: 07/29/19 STATUS: DIS IN TLOC: SPEC #: [id number] RECD: 07/30/19 STATUS: BRYN REQ #: [id number] WILIAM: 07/29/19- [facility] DR: Gonzalo Camarena MD ENTERED: 07/30/19 SP TYPE: STOMACH OTHR DR: [facility] ivan or Family Physician Harsh Gan MD, Ather Rafiq MD Ojeas, Harry Silvio MDORDERED: GROSS COPIES TO: No Primary or Family Physician Harsh Gan MD [address] [place] [address] Gonzalo Camarena MD [address] [facility] [address] [place] [address] Radha Juarez MD [address] [place] [address] Lucho Swenson MD [address] [address] PROCEDURES: GROSS (07/31/19-1210) TISSUES: ANTRUM - BX CLINICAL HISTORY COLLECTION DATE: 07/29/19 NAUS EA VOMITING CONTINUED ON NEXT PAGE ---- --------RUN DATE: 07/31/19 [facility] PAGE 2 RUN TIME: 1439 Specimen Inquiry RUN USER: INTERFACE SPEC #: [id number] PATIENT: VIVEK FINNEY #[id number] (Continued) FINAL DIAGNOSIS Gastric antrum, biopsy: REACTIVE GASTROPATHY NEGATIVE FOR INTESTI NAL METAPLASIA NEGATIVE FOR MALIGNANCY RRB/sm D 26551 MACROSCOPIC The specimen is received in formalin, labeled with the patie nt's name, identified as "antrum", and consists of two penny biopsy tissue measu ring 0.3 cm in aggregate, submitted for histologic evaluation. GROSS PER FORMED AT [facility] [address] [place] [address] [phone])[phone] MICROSCOPIC All of the stains, including any controls performed, stain appropriately. MICROSCOPIC PERFORMED AT [facility] [address] [place] [address] ([phone] PERFORMING SITE Diagnosis performed at: [facility] [address] [place] [address] Signed SIGNATURE ON FILE Sanjeev Kirkland MD 07/31/19 1439 END OF REPORT [id number] 20:23:00* Test Item Value Reference Range Interpretation Comments GLUBED (test code = GLUBED) 195 mg/dL 74-106 H Performed by certified matrix bath operator at [facility] - SP FLUORO GUID CTRL ACC [id number] 16:21:00 Name: VIVEK FINNEY [facility] : 1940 Age/S: 78 / F [facility] Unit #: [id number] Loc: [place] [address] Phys: Gonzalo Camarena MD Acct: [id number] Dis Date: Status: ADM IN PHONE #: [phone] Exam Date: 07/29/2019 4261 FAX #: [phone] Reason: / EXAMS: CPT CODE: [id number] SP FLUORO GUID CTRL ACC DEV 01215 Fluoro Time: 6 DAP (Gy m2): 0.23 Air Kerma (mGy): 1 REASON FOR EXAM: Working AV fistula Exam order date: 07/29/2019 2:53 PM Ordering: Gonzalo Camarena MD Attending:Gonzalo Camarena MD Location:[facility] PROCEDURE: Removal Of Tunneled Hemodialysis Catheter CPT code: 22256, 81993 FINDINGS: Prior to the procedure, informed consent was obtained after risks and benefits of the procedure were explained to the patient. The patient agreed and wanted to proceed. The patient was brought to special procedures and placed supine on the table. The right anterior chest wall was prepped and draped in the usual fashion. All maximal sterile barrier techniques were applied. 2% local lidocaine was given. Using blunt dissection, the cuff was freed with a hemostat and the catheter was removed. MEDICATIONS: None. COMPLICATIONS: None. BLOOD LOSS: Less than 5 cc Fluoroscopic time: 6 sec Fluoroscopic dose: 1 mGy IMPRESSION: right IJ tunneled hemodialysis catheter was removed. at 1621 Reported and signed by: Galileo Saul M.D. CC: Harsh Gan; Gonzalo Camarena MD Technologist: RT OLIVIA Trnscb Date/Time: 07/29/2019 (1620) t.VTL Orig Print D/T: S: 07/29/2019 (7658) PAGE 1 Signed Report GLUBED 2019-07-29 12:11:00* Test Item Value Reference Range Interpretation Comments GLUBED (test code = GLUBED) 87 mg/dL 74-106 N Performed by certified matrix bath operator at [facility] BASIC METABOLIC [id number] 06:31:00* Test Item Value Reference Range Interpretation Comments SODIUM (test code = NA) 134 mmol/L 136-145 L POTASSIUM (test code = K) 4.5 mmol/L 3.5-5.1 N CHLORIDE (test code = CL) 98.0 mmol/L 98-107 N CARBON DIOXIDE (test code = CO2) 26.0 mmol/L 21-32 N ANION GAP (test code = GAP) 14.5 10-20 N GLUCOSE (test code = GLU) 107 mg/dL 74-106 H BLOOD UREA NITROGEN (test code = BUN) 34 mg/dL 7-18 H GLOMERULAR FILTRATION RATE (test code = GFR) 11 mL/min >=60 Estimated GFR by using Modified MDRD formula.Chronic kidney disease is defined as either kidney damageor GFR <60 mL/min/1.73 m2 for >3 months. CREATININE (test code = CREAT) 4.00 mg/dL 0.55-1.02 H Note change in reference range due to change in reagent. BUN/CREATININE RATIO (test code = BUN/CREA) 8.6 10-20 L CALCIUM (test code = CA) 7.7 mg/dL 8.5-10.1 L BASIC METABOLIC [id number] 06:25:00* Test Item Value Reference Range Interpretation Comments SODIUM (test code = NA) 134 mmol/L 136-145 L POTASSIUM (test code = K) 4.5 mmol/L 3.5-5.1 N CHLORIDE (test code = CL) 98.0 mmol/L 98-107 N CARBON DIOXIDE (test code = CO2) mmol/L 21-32 ANION GAP (test code = GAP) 10-20 GLUCOSE (test code = GLU) mg/dL 74-106 BLOOD UREA NITROGEN (test code = BUN) mg/dL 7-18 GLOMERULAR FILTRATION RATE (test code = GFR) mL/min >=60 CREATININE (test code = CREAT) mg/dL 0.55-1.02 BUN/CREATININE RATIO (test code = BUN/CREA) 10-20 CALCIUM (test code = CA) mg/dL 8.5-10.1 CBC W/AUTO [id number] 06:18:00* Test Item Value Reference Range Interpretation Comments WHITE BLOOD CELL (test code = WBC) 6.5 K/mm3 4.5-12.5 N RED BLOOD CELL (test code = RBC) 2.85 mill/mm3 3.7-5.2 L HEMOGLOBIN (test code = HGB) 8.2 gram/dL 11.5-15.5 L HEMATOCRIT (test code = HCT) 25.8 % 36.0-46.0 L MEAN CELL VOLUME (test code = MCV) 90.5 fL 80-98 N MEAN CELL HGB (test code = MCH) 28.8 picogram 27.0-33.0 N MEAN CELL HGB CONCETRATION (test code = MCHC) 31.8 gram/dL 33.0-36. 0 L RED CELL DISTRIBUTION WIDTH (test code = RDW) 15.4 % 11.6-16. 2 N RED CELL DISTRIBUTION WIDTH SD (test code = RDW-SD) 51.0 fL 37 .0-51.0 N PLATELET COUNT (test code = PLT) 196 K/mm3 150-450 N MEAN PLATELET VOLUME (test code = MPV) 11.0 fL 6.7-11.0 N NEUTROPHIL % (test code = NT%) 73.2 % 39.0-69.0 H IMMATURE GRANULOCYTE % (test code = IG%) 0.3 % 0.0-5.0 N LYMPHOCYTE % (test code = LY%) 13.8 % 25.0-55.0 L MONOCYTE % (test code = MO%) 9.2 % 0.0-10.0 N EOSINOPHIL % (test code = EO%) 3.2 % 0.0-5.0 N BASOPHIL % (test code = BA%) 0.3 % 0.0-1.0 N NUCLEATED RBC % (test code = NRBC%) 0.0 % 0-0 N NEUTROPHIL # (test code = NT#) 4.76 K/mm3 1.8-7.7 N IMMATURE GRANULOCYTE # (test code = IG#) 0.02 x10 3/uL 0-0.03 N LYMPHOCYTE # (test code = LY#) 0.90 K/mm3 1.0-5.0 L MONOCYTE # (test code = MO#) 0.60 K/mm3 0-0.8 N EOSINOPHIL # (test code = EO#) 0.21 K/mm3 0.0-0.5 N BASOPHIL # (test code = BA#) 0.02 K/mm3 0.0-0.2 N NUCLEATED RBC # (test code = NRBC#) 0.00 K/mm3 0.0-0.1 N [id number] 06:01:00* Test Item Value Reference Range Interpretation Comments GLUBED (test code = GLUBED) 104 mg/dL 74-106 N Performed by certified matrix bath operator at [facility] [id number] 20:49:00* Test Item Value Reference Range Interpretation Comments GLUBED (test code = GLUBED) 145 mg/dL 74-106 H Performed by certified matrix bath operator at [facility] [id number] 16:40:00* Test Item Value Reference Range Interpretation Comments GLUBED (test code = GLUBED) 159 mg/dL 74-106 H Performed by certified matrix bath operator at [facility] CBC W/MANUAL [id number] 13:52:00* Test Item Value Reference Range Interpretation Comments WHITE BLOOD CELL (test code = WBC) 7.1 K/mm3 4.5-12.5 N RED BLOOD CELL (test code = RBC) 2.83 mill/mm3 3.7-5.2 L HEMOGLOBIN (test code = HGB) 8.2 gram/dL 11.5-15.5 L HEMATOCRIT (test code = HCT) 26.4 % 36.0-46.0 L MEAN CELL VOLUME (test code = MCV) 93.3 fL 80-98 N MEAN CELL HGB (test code = MCH) 29.0 picogram 27.0-33.0 N MEAN CELL HGB CONCETRATION (test code = MCHC) 31.1 gram/dL 33.0-36. 0 L RED CELL DISTRIBUTION WIDTH (test code = RDW) 15.9 % 11.6-16. 2 N RED CELL DISTRIBUTION WIDTH SD (test code = RDW-SD) 53.6 fL 37 .0-51.0 H PLATELET COUNT (test code = PLT) 190 K/mm3 150-450 N MEAN PLATELET VOLUME (test code = MPV) 10.8 fL 6.7-11.0 N IMMATURE GRANULOCYTE % (test code = IG%) 0.3 % 0.0-5.0 N NUCLEATED RBC % (test code = NRBC%) 0.0 % 0-0 N NEUTROPHIL # (test code = NT#) 5.45 K/mm3 1.8-7.7 N IMMATURE GRANULOCYTE # (test code = IG#) 0.02 x10 3/uL 0-0.03 N LYMPHOCYTE # (test code = LY#) 0.78 K/mm3 1.0-5.0 L MONOCYTE # (test code = MO#) 0.68 K/mm3 0-0.8 N EOSINOPHIL # (test code = EO#) 0.16 K/mm3 0.0-0.5 N BASOPHIL # (test code = BA#) 0.03 K/mm3 0.0-0.2 N NUCLEATED RBC # (test code = NRBC#) 0.00 K/mm3 0.0-0.1 N MANUAL DIFF REQUIRED (test code = MDIFF) YES STAIN ACCEPTABILITY (test code = STN ACCEPTABLE) STAIN ACCEPTABLE TOTAL CELLS COUNTED (test code = TCC) 115 #CELLS SEGMENTED NEUTROPHILS (test code = SEG) 86.1 % 39-69 H BAND NEUTROPHIL (test code = BAND) 0 % 0-10 N LYMPHOCYTE (test code = LYMPH) 6.1 % 25-55 L REACTIVE LYMPH (test code = RELYMPH) 0 % MONOCYTE (test code = MON) 6.1 % 0-10 N EOSINOPHIL (test code = EOS) 1.7 % 0.0-5.0 N BASOPHIL (test code = BASO) 0 % 0-1.0 N METAMYELOCYTE (test code = META) 0 % 0-0 N MYELOCYTE (test code = MYELO) 0 % 0.0-0.0 N PROMYELOCYTE (test code = PROM) 0 % 0-0 N POLYCHROMASIA (test code = POLC) 2+ ANISOCYTOSIS (test code = ANISO) 1+ PLATELET ESTIMATE (test code = PLTEST) ADEQUATE PLATELET MORPHOLOGY (test code = PLTMORPH) SIZE VARIABLE IMMATURE FORMS (test code = IMMAT) 0 % 0-0 N CBC W/MANUAL [id number] 13:18:00* Test Item Value Reference Range Interpretation Comments WHITE BLOOD CELL (test code = WBC) 7.1 K/mm3 4.5-12.5 N RED BLOOD CELL (test code = RBC) 2.83 mill/mm3 3.7-5.2 L HEMOGLOBIN (test code = HGB) 8.2 gram/dL 11.5-15.5 L HEMATOCRIT (test code = HCT) 26.4 % 36.0-46.0 L MEAN CELL VOLUME (test code = MCV) 93.3 fL 80-98 N MEAN CELL HGB (test code = MCH) 29.0 picogram 27.0-33.0 N MEAN CELL HGB CONCETRATION (test code = MCHC) 31.1 gram/dL 33.0-36. 0 L RED CELL DISTRIBUTION WIDTH (test code = RDW) 15.9 % 11.6-16. 2 N RED CELL DISTRIBUTION WIDTH SD (test code = RDW-SD) 53.6 fL 37 .0-51.0 H PLATELET COUNT (test code = PLT) 190 K/mm3 150-450 N MEAN PLATELET VOLUME (test code = MPV) 10.8 fL 6.7-11.0 N IMMATURE GRANULOCYTE % (test code = IG%) 0.3 % 0.0-5.0 N NUCLEATED RBC % (test code = NRBC%) 0.0 % 0-0 N NEUTROPHIL # (test code = NT#) 5.45 K/mm3 1.8-7.7 N IMMATURE GRANULOCYTE # (test code = IG#) 0.02 x10 3/uL 0-0.03 N LYMPHOCYTE # (test code = LY#) 0.78 K/mm3 1.0-5.0 L MONOCYTE # (test code = MO#) 0.68 K/mm3 0-0.8 N EOSINOPHIL # (test code = EO#) 0.16 K/mm3 0.0-0.5 N BASOPHIL # (test code = BA#) 0.03 K/mm3 0.0-0.2 N NUCLEATED RBC # (test code = NRBC#) 0.00 K/mm3 0.0-0.1 N MANUAL DIFF REQUIRED (test code = MDIFF) YES STAIN ACCEPTABILITY (test code = STN ACCEPTABLE) TOTAL CELLS COUNTED (test code = TCC) #CELLS SEGMENTED NEUTROPHILS (test code = SEG) % 39-69 LYMPHOCYTE (test code = LYMPH) % 25-55 MONOCYTE (test code = MON) % 0-10 MORPHOLOGY COMMENT (test code = MOC) PLATELET ESTIMATE (test code = PLTEST) PLATELET MORPHOLOGY (test code = PLTMORPH) [id number] 12:33:00* Test Item Value Reference Range Interpretation Comments GLUBED (test code = GLUBED) 103 mg/dL 74-106 N Performed by certified matrix bath operator at [facility] [id number] 05:59:00* Test Item Value Reference Range Interpretation Comments GLUBED (test code = GLUBED) 98 mg/dL 74-106 N Performed by certified matrix bath operator at [facility] - XR ABDOMEN AP 1 [id number] 22:38:00 FAX: Harsh Rodrigez MD [phone] [place]: B St: [facility] FAX: Gonzalo Camarena MD [phone] Name: VIVEK FINNEY [facility] : 1940 Age/S: 78/F [address] Unit #: [id number] Loc: V.[address] [address] Phys: Gonzalo Camarena MD Acct: [id number] Dis Date: Status: ADM IN PHONE #: [phone] Exam Date: 07/27/20192152 FAX #: [phone] Reason: ABD PAIN, BLACK STOOLS EXAMS: CPT CODE: [id number] XR ABDOMEN AP 1 V 81375 HISTORY: ABD PAIN, BLACK STOOLS TECHNIQUE: AP ab domen x-ray COMPARISON: Abdominal x-ray October 10, 2018 FINDINGS: Nonobstructive bowel gas pattern. No significant stool burden. No intra-abdominal mass effect. Prior cho lecystectomy. Left femoral hardware unchanged. Bone mineralization unchanged. IMPRESSION: No radiographic evid ence of acute intra-abdominal process. Location: RR * * at 2238 Reported and signed by: Navin Butt MD CC: Donna Gan; Gonzalo Camarena MD Technologist: Tisha Keen( Daysi) Trnscrd Date/Time/By: 07/27/2019 (2237) : By: [email or web address] Orig Print D/T: S: 07/27/2019 (8815) PAGE 1 Signed Report GLUBED 2019-07-27 20:44:00* Test Item Value Reference Range Interpretation Comments GLUBED (test code = GLUBED) 147 mg/dL 74-106 H Performed by certified matrix bath operator at [facility] [id number] 16:57:00* Test Item Value Reference Range Interpretation Comments GLUBED (test code = GLUBED) 139 mg/dL 74-106 H Performed by certified matrix bath operator at [facility] [id number] 13:28:00* Test Item Value Reference Range Interpretation Comments GLUBED (test code = GLUBED) 145 mg/dL 74-106 H Performed by certified matrix bath operator at [facility] [id number] 08:12:00* Test Item Value Reference Range Interpretation Comments GLUBED (test code = GLUBED) 164 mg/dL 74-106 H Performed by certified matrix bath operator at [facility] COMPREHENSIVE METABOLIC [id number] 06:42:00* Test Item Value Reference Range Interpretation Comments SODIUM (test code = NA) 131 mmol/L 136-145 L POTASSIUM (test code = K) 6.0 mmol/L 3.5-5.1 H Re sults called to [id number] by V.[email or web address] 07/27/19 0640Critical results verified and read back by Nurse? Y CHLORIDE (test code = CL) 95.0 mmol/L 98-107 L CARBON DIOXIDE (test code = CO2) 24.0 mmol/L 21-32 N ANION GAP (test code = GAP) 18.0 10-20 N GLUCOSE (test code = GLU) 139 mg/dL 74-106 H BLOOD UREA NITROGEN (test code = BUN) 38 mg/dL 7-18 H GLOMERULAR FILTRATION RATE (test code = GFR) 11 mL/min >=60 Estimated GFR by using Modified MDRD formula.Chronic kidney disease is defined as either kidney damageor GFR <60 mL/min/1.73 m2 for >3 months. CREATININE (test code = CREAT) 3.90 mg/dL 0.55-1.02 H Note change in reference range due to change in reagent. BUN/CREATININE RATIO (test code = BUN/CREA) 9.6 10-20 L TOTAL PROTEIN (test code = PROT) 6.6 gram/dL 6.4-8.2 N ALBUMIN (test code = ALB) 2.6 g/dL 3.4-5.0 L GLOBULIN (test code = GLOB) 4.0 gram/dL 2.7-4.2 N ALBUMIN/GLOBULIN RATIO (test code = A/G) 0.6 0.75-1.50 L CALCIUM (test code = CA) 7.1 mg/dL 8.5-10.1 L BILIRUBIN TOTAL (test code = BILT) 0.40 mg/dL 0.0-1.0 N SGOT/AST (test code = AST) 32 IUnit/L 15-37 N SGPT/ALT (test code = ALT) 21 IUnit/L 12-78 N ALKALINE PHOSPHATASE TOTAL (test code = ALKP) 128 IUnit/L 45-117 H Note change in reference range due to change in reagent. CBC W/AUTO [id number] 05:34:00* Test Item Value Reference Range Interpretation Comments WHITE BLOOD CELL (test code = WBC) 7.3 K/mm3 4.5-12.5 N RED BLOOD CELL (test code = RBC) 2.97 mill/mm3 3.7-5.2 L HEMOGLOBIN (test code = HGB) 8.6 gram/dL 11.5-15.5 L HEMATOCRIT (test code = HCT) 26.7 % 36.0-46.0 L MEAN CELL VOLUME (test code = MCV) 89.9 fL 80-98 N MEAN CELL HGB (test code = MCH) 29.0 picogram 27.0-33.0 N MEAN CELL HGB CONCETRATION (test code = MCHC) 32.2 gram/dL 33.0-36. 0 L RED CELL DISTRIBUTION WIDTH (test code = RDW) 16.1 % 11.6-16. 2 N RED CELL DISTRIBUTION WIDTH SD (test code = RDW-SD) 53.0 fL 37 .0-51.0 H PLATELET COUNT (test code = PLT) 192 K/mm3 150-450 N MEAN PLATELET VOLUME (test code = MPV) 10.9 fL 6.7-11.0 N NEUTROPHIL % (test code = NT%) 78.7 % 39.0-69.0 H IMMATURE GRANULOCYTE % (test code = IG%) 0.4 % 0.0-5.0 N LYMPHOCYTE % (test code = LY%) 10.1 % 25.0-55.0 L MONOCYTE % (test code = MO%) 7.9 % 0.0-10.0 N EOSINOPHIL % (test code = EO%) 2.6 % 0.0-5.0 N BASOPHIL % (test code = BA%) 0.3 % 0.0-1.0 N NUCLEATED RBC % (test code = NRBC%) 0.0 % 0-0 N NEUTROPHIL # (test code = NT#) 5.75 K/mm3 1.8-7.7 N IMMATURE GRANULOCYTE # (test code = IG#) 0.03 x10 3/uL 0-0.03 N LYMPHOCYTE # (test code = LY#) 0.74 K/mm3 1.0-5.0 L MONOCYTE # (test code = MO#) 0.58 K/mm3 0-0.8 N EOSINOPHIL # (test code = EO#) 0.19 K/mm3 0.0-0.5 N BASOPHIL # (test code = BA#) 0.02 K/mm3 0.0-0.2 N NUCLEATED RBC # (test code = NRBC#) 0.00 K/mm3 0.0-0.1 N MANUAL DIFF REQUIRED (test code = MDIFF) NO HGB [id number] 22:39:00* Test Item Value Reference Range Interpretation Comments HEMOGLOBIN (test code = HGB) 8.1 gram/dL 11.5-15.5 L HEMATOCRIT (test code = HCT) 24.7 % 36.0-46.0 L [id number] 20:50:00* Test Item Value Reference Range Interpretation Comments GLUBED (test code = GLUBED) 109 mg/dL 74-106 H Performed by certified matrix bath operator at [facility] HGB [id number] 19:28:00* Test Item Value Reference Range Interpretation Comments HEMOGLOBIN (test code = HGB) 8.0 gram/dL 11.5-15.5 L HEMATOCRIT (test code = HCT) 25.0 % 36.0-46.0 L Patient Receiving Blood Patient Re[facility]Coronavirus [address] [facility] 2019-07-26 18:24:00* Test Item Value Reference Range Interpretation Comments Coronavirus [address] [facility] (test code = COVNONPUIBED) Negative [id number] 16:36:00* Test Item Value Reference Range Interpretation Comments GLUBED (test code = GLUBED) 171 mg/dL 74-106 H Performed by certified matrix bath operator at [facility] AG HEPAT B [id number] 16:11:00* Test Item Value Reference Range Interpretation Comments AG HEPAT B SURF (test code = HBSAG) Nonreactive Index Nonreactive Patient Receiving Blood Patient Receiving BloodHGB [id number] 14:59:00* Test Item Value Reference Range Interpretation Comments HEMOGLOBIN (test code = HGB) 6.7 gram/dL 11.5-15.5 L HEMATOCRIT (test code = HCT) 21.1 % 36.0-46.0 LL Results called to [id number] by [email or web address] 07/26/19 [id number] results verified and read back by Nurse? Y [id number] 12:35:00* Test Item Value Reference Range Interpretation Comments GLUBED (test code = GLUBED) 139 mg/dL 74-106 H Performed by certified matrix bath operator at [facility] [id number] 06:49:00* Test Item Value Reference Range Interpretation Comments GLUBED (test code = GLUBED) 94 mg/dL 74-106 N Performed by certified matrix bath operator at [facility] BASIC METABOLIC [id number] 02:22:00* Test Item Value Reference Range Interpretation Comments SODIUM (test code = NA) 134 mmol/L 136-145 L POTASSIUM (test code = K) 4.8 mmol/L 3.5-5.1 N CHLORIDE (test code = CL) 98.0 mmol/L 98-107 N CARBON DIOXIDE (test code = CO2) 29.0 mmol/L 21-32 N ANION GAP (test code = GAP) 11.8 10-20 N GLUCOSE (test code = GLU) 156 mg/dL 74-106 H BLOOD UREA NITROGEN (test code = BUN) 24 mg/dL 7-18 H GLOMERULAR FILTRATION RATE (test code = GFR) 19 mL/min >=60 Estimated GFR by using Modified MDRD formula.Chronic kidney disease is defined as either kidney damageor GFR <60 mL/min/1.73 m2 for >3 months. CREATININE (test code = CREAT) 2.40 mg/dL 0.55-1.02 H Note change in reference range due to change in reagent. BUN/CREATININE RATIO (test code = BUN/CREA) 10.1 10-20 N CALCIUM (test code = CA) 7.2 mg/dL 8.5-10.1 L HEPATIC FUNCTION [id number] 02:22:00* Test Item Value Reference Range Interpretation Comments TOTAL PROTEIN (test code = PROT) 5.9 gram/dL 6.4-8.2 L ALBUMIN (test code = ALB) 2.4 g/dL 3.4-5.0 L GLOBULIN (test code = GLOB) 3.5 gram/dL 2.7-4.2 N ALBUMIN/GLOBULIN RATIO (test code = A/G) 0.7 0.75-1.50 L BILIRUBIN TOTAL (test code = BILT) 0.20 mg/dL 0.0-1.0 N BILIRUBIN DIRECT (test code = BILD) 0.09 mg/dL 0.0-0.20 N SGOT/AST (test code = AST) 15 IUnit/L 15-37 N SGPT/ALT (test code = ALT) 11 IUnit/L 12-78 L ALKALINE PHOSPHATASE TOTAL (test code = ALKP) 131 IUnit/L 45-117 H Note change in reference range due to change in reagent. [id number] 02:22:00* Test Item Value Reference Range Interpretation Comments TROPONIN-I (test code = TROPI) <0.015 ng/mL 0-0.045 N BASIC METABOLIC [id number] 02:13:00* Test Item Value Reference Range Interpretation Comments SODIUM (test code = NA) 134 mmol/L 136-145 L POTASSIUM (test code = K) 4.8 mmol/L 3.5-5.1 N CHLORIDE (test code = CL) 98.0 mmol/L 98-107 N CARBON DIOXIDE (test code = CO2) mmol/L 21-32 ANION GAP (test code = GAP) 10-20 GLUCOSE (test code = GLU) mg/dL 74-106 BLOOD UREA NITROGEN (test code = BUN) mg/dL 7-18 GLOMERULAR FILTRATION RATE (test code = GFR) mL/min >=60 CREATININE (test code = CREAT) mg/dL 0.55-1.02 BUN/CREATININE RATIO (test code = BUN/CREA) 10-20 CALCIUM (test code = CA) mg/dL 8.5-10.1 HEPATIC FUNCTION [id number] 02:13:00* Test Item Value Reference Range Interpretation Comments TOTAL PROTEIN (test code = PROT) gram/dL 6.4-8.2 ALBUMIN (test code = ALB) g/dL 3.4-5.0 GLOBULIN (test code = GLOB) gram/dL 2.7-4.2 ALBUMIN/GLOBULIN RATIO (test code = A/G) 0.75-1.50 BILIRUBIN TOTAL (test code = BILT) mg/dL 0.0-1.0 BILIRUBIN DIRECT (test code = BILD) mg/dL 0.0-0.20 SGOT/AST (test code = AST) IUnit/L 15-37 SGPT/ALT (test code = ALT) IUnit/L 12-78 ALKALINE PHOSPHATASE TOTAL (test code = ALKP) IUnit/L 45-117 [id number] 02:13:00* Test Item Value Reference Range Interpretation Comments TROPONIN-I (test code = TROPI) ng/mL 0-0.045 PROTHROMBIN [id number] 02:02:00* Test Item Value Reference Range Interpretation Comments PROTHROMBIN TIME PATIENT (test code = PTP) 11.5 seconds 9.0-14.0 N INTERNATIONAL NORMAL RATIO (test code = INR) 1.0 0.8-1.2 N The therapeutic range for oral anticoagulant therapy formost indications is an international normalized ratio (INR)of between 2.0 and 3.0. The recommended therapeutic INRrange for various clinical situations is listed below: Clinical Situation INR range Pulmonary e mbolism treatment (2.0-3.0)Venous thrombosis treatmentVenous thrombosis prophylaxis (high risk surgery)Prevention of systemic embolism from: Acute myocardial infarction Valvular heart disease Atrial fibrillation Mechanical prosthetic heart valves (2.5-3.5) IS PATIENT ON ANTICOAGULANTS? NTHROMBOPLASTIN TIME [id number] 02:02:00* Test Item Value Reference Range Interpretation Comments THROMBOPLASTIN TIME PARTIAL (test code = PTT) 28.0 seconds 23.0-37. 0 N IS PATIENT ON ANTICOAGULANTS? NCBC W/O [id number] 01:55:00* Test Item Value Reference Range Interpretation Comments WHITE BLOOD CELL (test code = WBC) 5.2 K/mm3 4.5-12.5 N RED BLOOD CELL (test code = RBC) 1.60 mill/mm3 3.7-5.2 L HEMOGLOBIN (test code = HGB) 4.6 gram/dL 11.5-15.5 L HEMATOCRIT (test code = HCT) 15.1 % 36.0-46.0 LL Results called to [id number] by [email or web address] 07/26/19 0149Critical results verified and read back by Nurse? Y MEAN CELL VOLUME (test code = MCV) 94.4 fL 80-98 N MEAN CELL HGB (test code = MCH) 28.8 picogram 27.0-33.0 N MEAN CELL HGB CONCETRATION (test code = MCHC) 30.5 gram/dL 33.0-36. 0 L RED CELL DISTRIBUTION WIDTH (test code = RDW) 17.2 % 11.6-16. 2 H PLATELET COUNT (test code = PLT) 204 K/mm3 150-450 N MEAN PLATELET VOLUME (test code = MPV) 10.9 fL 6.7-11.0 N [id number] 12:07:00* Test Item Value Reference Range Interpretation Comments GLUBED (test code = GLUBED) 173 mg/dL 74-106 H [facility] [id number] 08:03:00* Test Item Value Reference Range Interpretation Comments GLUBED (test code = GLUBED) 115 mg/dL 74-106 H Performed by certified matrix bath operator at [facility] [id number] 21:00:00* Test Item Value Reference Range Interpretation Comments GLUBED (test code = GLUBED) 195 mg/dL 74-106 H Performed by certified matrix bath operator at [facility] [id number] 16:24:00* Test Item Value Reference Range Interpretation Comments GLUBED (test code = GLUBED) 203 mg/dL 74-106 H [facility] [id number] 11:51:00* Test Item Value Reference Range Interpretation Comments GLUBED (test code = GLUBED) 144 mg/dL 74-106 H Performed by certified matrix bath operator at [facility] [id number] 08:23:00* Test Item Value Reference Range Interpretation Comments GLUBED (test code = GLUBED) 117 mg/dL 74-106 H Performed by certified matrix bath operator at [facility] [id number] 20:25:00* Test Item Value Reference Range Interpretation Comments GLUBED (test code = GLUBED) 165 mg/dL 74-106 H Performed by certified matrix bath operator at [facility] [id number] 16:19:00* Test Item Value Reference Range Interpretation Comments GLUBED (test code = GLUBED) 116 mg/dL 74-106 H Performed by certified matrix bath operator at [facility] [id number] 11:56:00* Test Item Value Reference Range Interpretation Comments GLUBED (test code = GLUBED) 141 mg/dL 74-106 H Performed by certified matrix bath operator at [facility] BASIC METABOLIC [id number] 08:24:00* Test Item Value Reference Range Interpretation Comments SODIUM (test code = NA) 135 mmol/L 136-145 L POTASSIUM (test code = K) 3.3 mmol/L 3.5-5.1 L CHLORIDE (test code = CL) 97.0 mmol/L 98-107 L CARBON DIOXIDE (test code = CO2) 26.0 mmol/L 21-32 N ANION GAP (test code = GAP) 15.3 10-20 N GLUCOSE (test code = GLU) 124 mg/dL 74-106 H BLOOD UREA NITROGEN (test code = BUN) 39 mg/dL 7-18 H GLOMERULAR FILTRATION RATE (test code = GFR) 9 mL/min >=60 Estimated GFR by using Modified MDRD formula.Chronic kidney disease is defined as either kidney damageor GFR <60 mL/min/1.73 m2 for >3 months. CREATININE (test code = CREAT) 4.70 mg/dL 0.55-1.02 H Note change in reference range due to change in reagent. BUN/CREATININE RATIO (test code = BUN/CREA) 8.3 10-20 L CALCIUM (test code = CA) 7.6 mg/dL 8.5-10.1 L BASIC METABOLIC [id number] 08:20:00* Test Item Value Reference Range Interpretation Comments SODIUM (test code = NA) 135 mmol/L 136-145 L POTASSIUM (test code = K) 3.3 mmol/L 3.5-5.1 L CHLORIDE (test code = CL) 97.0 mmol/L 98-107 L CARBON DIOXIDE (test code = CO2) mmol/L 21-32 ANION GAP (test code = GAP) 10-20 GLUCOSE (test code = GLU) mg/dL 74-106 BLOOD UREA NITROGEN (test code = BUN) mg/dL 7-18 GLOMERULAR FILTRATION RATE (test code = GFR) mL/min >=60 CREATININE (test code = CREAT) mg/dL 0.55-1.02 BUN/CREATININE RATIO (test code = BUN/CREA) 10-20 CALCIUM (test code = CA) mg/dL 8.5-10.1 CBC W/AUTO [id number] 08:10:00* Test Item Value Reference Range Interpretation Comments WHITE BLOOD CELL (test code = WBC) 6.3 K/mm3 4.5-12.5 N RED BLOOD CELL (test code = RBC) 3.06 mill/mm3 3.7-5.2 L HEMOGLOBIN (test code = HGB) 8.8 gram/dL 11.5-15.5 L HEMATOCRIT (test code = HCT) 28.7 % 36.0-46.0 L MEAN CELL VOLUME (test code = MCV) 93.8 fL 80-98 N MEAN CELL HGB (test code = MCH) 28.8 picogram 27.0-33.0 N MEAN CELL HGB CONCETRATION (test code = MCHC) 30.7 gram/dL 33.0-36. 0 L RED CELL DISTRIBUTION WIDTH (test code = RDW) 16.0 % 11.6-16. 2 N RED CELL DISTRIBUTION WIDTH SD (test code = RDW-SD) 55.3 fL 37 .0-51.0 H PLATELET COUNT (test code = PLT) 210 K/mm3 150-450 N MEAN PLATELET VOLUME (test code = MPV) 10.7 fL 6.7-11.0 N NEUTROPHIL % (test code = NT%) 63.3 % 39.0-69.0 N IMMATURE GRANULOCYTE % (test code = IG%) 0.5 % 0.0-5.0 N LYMPHOCYTE % (test code = LY%) 18.4 % 25.0-55.0 L MONOCYTE % (test code = MO%) 13.2 % 0.0-10.0 H EOSINOPHIL % (test code = EO%) 4.1 % 0.0-5.0 N BASOPHIL % (test code = BA%) 0.5 % 0.0-1.0 N NUCLEATED RBC % (test code = NRBC%) 0.0 % 0-0 N NEUTROPHIL # (test code = NT#) 3.99 K/mm3 1.8-7.7 N IMMATURE GRANULOCYTE # (test code = IG#) 0.03 x10 3/uL 0-0.03 N LYMPHOCYTE # (test code = LY#) 1.16 K/mm3 1.0-5.0 N MONOCYTE # (test code = MO#) 0.83 K/mm3 0-0.8 H EOSINOPHIL # (test code = EO#) 0.26 K/mm3 0.0-0.5 N BASOPHIL # (test code = BA#) 0.03 K/mm3 0.0-0.2 N NUCLEATED RBC # (test code = NRBC#) 0.00 K/mm3 0.0-0.1 N [id number] 20:22:00* Test Item Value Reference Range Interpretation Comments GLUBED (test code = GLUBED) 180 mg/dL 74-106 H Performed by certified matrix bath operator at [facility] [id number] 16:54:00* Test Item Value Reference Range Interpretation Comments GLUBED (test code = GLUBED) 156 mg/dL 74-106 H [facility] [id number] 16:04:00 RUN DATE: 05/03/19 [facility] - Lab PAGE 1 RUN TIME: 1604 Specimen Inqui ry RUN USER: INTERFACE PATIENT: VIVEK FINNEY ACCT #: [id number] LOC: ELOY U #: [id number] AGE/SX: 78/F [facility] DR: Ravin Toledo MD : 39 BED: A DIS: STATUS: ADM Arian TLOC: SPEC #: [id number] RECD: 05/02/19 STATUS: BRYN LAMAS #: [id number] WILIAM: 05/02/19- SUBM DR: Ravin Toledo MD ENTERED: 05/02/19 SP TYPE: STOMACH OTHR DR: [facility] ivan or Family Physician Harsh Gan MD, Ather Rafiq MD Ojeas, Harry Silvio MDORDERED: GROSS COPIES TO: No Primary or Family Physician Ravin Toledo MD [address] [facility] [place] [address] Harsh Gna MD [address] [place] [address] Radha Juarez MD [address] [place] [address] Lucho Swenson MD [address] [address] PROCEDURES: GROSS (05/03/19-1040) TISSUES: 1. DUODENUM, NOS - BX 2. GASTRIC CORPUS - BX CLINICAL HISTORY COLLECTION DATE: 05/02/19 ABDOMINAL PAIN CONTINUED ON NEXT PAGE RUN DATE: 05/03/19 [facility] - Lab PAGE 2 RUN TIME: 1604 Speci men Inquiry RUN USER: INTERFACE SPEC #: [id number] PATIENT: VIVEK CHAVEZ #[id number] (Continued) FINAL DIAGNOSIS Duodenum, biopsy: SMALL BOWEL WITH NO PATHOLOGIC ALTERATION Gastric tissue, biopsy: PATCHY MILD CHRONIC INFLAMMATION IN GASTRIC MUCOSA NEGATIVE FOR INTESTINAL METAPLASIA NEGATIVE FOR HELICOBAC TER ORGANISMS NEGATIVE FOR MALIGNANCY RRB/sm D 70394e2, 883 12 MACROSCOPIC Specimen (1) is received in formalin, labeled with t he patient's name, identified as "duodenum", and consists of penny biopsy tissue measuring 0.35 cm in aggregate, submitted as (1). Specimen (2) is rece ived in formalin, labeled with the patient's name, identified as "gastric", an d consists of penny biopsy tissue measuring 0.3 cm in aggregate, submitted as (2 ). GROSS PERFORMED AT [facility] [address] [place] [address], [place] [address] (p)[phone] MICROSCOPIC A Giemsa stain was performed on the gastric biopsy to exclu de Helicobacter organisms since organisms may be present in older patient with out significantly increased inflammation. No organisms are identified. All of the stains, including any controls performed, stain appropriately. MICROSCOPIC PERFORMED AT [facility] [address] [facility] [place] [address] (P)[phone] CONTINUED ON NEXT PAGE RUN DATE: 05/03/19 [facility] PAGE 3 RUN TIME: 1604 Specimen Inquiry RUN USER: I OLGA S PEC #: [id number] PATIENT: VIVEK FINNEY #[id number] (Continued) PERFORMING SITE Diagnosis performed at: [facility] [address] [facility], [place] [id number] --------- --- Signed SIGNATURE ON FILE Sanjeev Kirkland MD 05/03/19 1604 END OF REPORT [id number] 08:30:00* Test Item Value Reference Range Interpretation Comments GLUBED (test code = GLUBED) 109 mg/dL 74-106 H [facility] COMPREHENSIVE METABOLIC [id number] 07:42:00* Test Item Value Reference Range Interpretation Comments SODIUM (test code = NA) 135 mmol/L 136-145 L POTASSIUM (test code = K) 3.6 mmol/L 3.5-5.1 N CHLORIDE (test code = CL) 96.0 mmol/L 98-107 L CARBON DIOXIDE (test code = CO2) 23.0 mmol/L 21-32 N ANION GAP (test code = GAP) 19.6 10-20 N GLUCOSE (test code = GLU) 99 mg/dL 74-106 N BLOOD UREA NITROGEN (test code = BUN) 48 mg/dL 7-18 H GLOMERULAR FILTRATION RATE (test code = GFR) 6 mL/min >=60 Estimated GFR by using Modified MDRD formula.Chronic kidney disease is defined as either kidney damageor GFR <60 mL/min/1.73 m2 for >3 months. CREATININE (test code = CREAT) 6.40 mg/dL 0.55-1.02 H Note change in reference range due to change in reagent. BUN/CREATININE RATIO (test code = BUN/CREA) 7.5 10-20 L TOTAL PROTEIN (test code = PROT) 7.3 gram/dL 6.4-8.2 N ALBUMIN (test code = ALB) 2.9 g/dL 3.4-5.0 L GLOBULIN (test code = GLOB) 4.4 gram/dL 2.7-4.2 H ALBUMIN/GLOBULIN RATIO (test code = A/G) 0.7 0.75-1.50 L CALCIUM (test code = CA) 7.3 mg/dL 8.5-10.1 L BILIRUBIN TOTAL (test code = BILT) 0.50 mg/dL 0.0-1.0 N SGOT/AST (test code = AST) 19 IUnit/L 15-37 N SGPT/ALT (test code = ALT) 9 IUnit/L 12-78 L ALKALINE PHOSPHATASE TOTAL (test code = ALKP) 99 IUnit/L 45-117 N Note change in reference range due to change in reagent. COMPREHENSIVE METABOLIC [id number] 07:39:00* Test Item Value Reference Range Interpretation Comments SODIUM (test code = NA) 135 mmol/L 136-145 L POTASSIUM (test code = K) 3.6 mmol/L 3.5-5.1 N CHLORIDE (test code = CL) 96.0 mmol/L 98-107 L CARBON DIOXIDE (test code = CO2) mmol/L 21-32 ANION GAP (test code = GAP) 10-20 GLUCOSE (test code = GLU) mg/dL 74-106 BLOOD UREA NITROGEN (test code = BUN) mg/dL 7-18 GLOMERULAR FILTRATION RATE (test code = GFR) mL/min >=60 CREATININE (test code = CREAT) mg/dL 0.55-1.02 BUN/CREATININE RATIO (test code = BUN/CREA) 10-20 TOTAL PROTEIN (test code = PROT) gram/dL 6.4-8.2 ALBUMIN (test code = ALB) g/dL 3.4-5.0 GLOBULIN (test code = GLOB) gram/dL 2.7-4.2 ALBUMIN/GLOBULIN RATIO (test code = A/G) 0.75-1.50 CALCIUM (test code = CA) mg/dL 8.5-10.1 BILIRUBIN TOTAL (test code = BILT) mg/dL 0.0-1.0 SGOT/AST (test code = AST) IUnit/L 15-37 SGPT/ALT (test code = ALT) IUnit/L 12-78 ALKALINE PHOSPHATASE TOTAL (test code = ALKP) IUnit/L 45-117 CBC W/AUTO [id number] 07:29:00* Test Item Value Reference Range Interpretation Comments WHITE BLOOD CELL (test code = WBC) 6.2 K/mm3 4.5-12.5 N RED BLOOD CELL (test code = RBC) 2.86 mill/mm3 3.7-5.2 L HEMOGLOBIN (test code = HGB) 8.2 gram/dL 11.5-15.5 L HEMATOCRIT (test code = HCT) 26.4 % 36.0-46.0 L MEAN CELL VOLUME (test code = MCV) 92.3 fL 80-98 N MEAN CELL HGB (test code = MCH) 28.7 picogram 27.0-33.0 N MEAN CELL HGB CONCETRATION (test code = MCHC) 31.1 gram/dL 33.0-36. 0 L RED CELL DISTRIBUTION WIDTH (test code = RDW) 16.1 % 11.6-16. 2 N RED CELL DISTRIBUTION WIDTH SD (test code = RDW-SD) 54.6 fL 37 .0-51.0 H PLATELET COUNT (test code = PLT) 198 K/mm3 150-450 N MEAN PLATELET VOLUME (test code = MPV) 10.5 fL 6.7-11.0 N NEUTROPHIL % (test code = NT%) 65.8 % 39.0-69.0 N IMMATURE GRANULOCYTE % (test code = IG%) 0.5 % 0.0-5.0 N LYMPHOCYTE % (test code = LY%) 15.7 % 25.0-55.0 L MONOCYTE % (test code = MO%) 14.3 % 0.0-10.0 H EOSINOPHIL % (test code = EO%) 3.2 % 0.0-5.0 N BASOPHIL % (test code = BA%) 0.5 % 0.0-1.0 N NUCLEATED RBC % (test code = NRBC%) 0.0 % 0-0 N NEUTROPHIL # (test code = NT#) 4.10 K/mm3 1.8-7.7 N IMMATURE GRANULOCYTE # (test code = IG#) 0.03 x10 3/uL 0-0.03 N LYMPHOCYTE # (test code = LY#) 0.98 K/mm3 1.0-5.0 L MONOCYTE # (test code = MO#) 0.89 K/mm3 0-0.8 H EOSINOPHIL # (test code = EO#) 0.20 K/mm3 0.0-0.5 N BASOPHIL # (test code = BA#) 0.03 K/mm3 0.0-0.2 N NUCLEATED RBC # (test code = NRBC#) 0.00 K/mm3 0.0-0.1 N [id number] 07:03:00* Test Item Value Reference Range Interpretation Comments GLUBED (test code = GLUBED) 82 mg/dL 74-106 N Performed by certified matrix bath operator at [facility] [id number] 20:02:00* Test Item Value Reference Range Interpretation Comments GLUBED (test code = GLUBED) 204 mg/dL 74-106 H Performed by certified matrix bath operator at [facility] [id number] 16:57:00* Test Item Value Reference Range Interpretation Comments GLUBED (test code = GLUBED) 114 mg/dL 74-106 H [facility] [id number] 11:57:00* Test Item Value Reference Range Interpretation Comments GLUBED (test code = GLUBED) 71 mg/dL 74-106 L [facility] [id number] 11:24:00* Test Item Value Reference Range Interpretation Comments GLUBED (test code = GLUBED) 75 mg/dL 74-106 N Performed by certified matrix bath operator at [facility] [id number] 08:23:00* Test Item Value Reference Range Interpretation Comments GLUBED (test code = GLUBED) 79 mg/dL 74-106 N [facility] [id number] 20:51:00* Test Item Value Reference Range Interpretation Comments GLUBED (test code = GLUBED) 123 mg/dL 74-106 H Performed by certified matrix bath operator at [facility] [id number] 16:23:00* Test Item Value Reference Range Interpretation Comments GLUBED (test code = GLUBED) 94 mg/dL 74-106 N Performed by certified matrix bath operator at [facility] COMPREHENSIVE METABOLIC [id number] 04:59:00* Test Item Value Reference Range Interpretation Comments SODIUM (test code = NA) 137 mmol/L 136-145 RESU LT VERIFIED BY REPEAT ANALYSIS POTASSIUM (test code = K) 3.5 mmol/L 3.5-5.1 N CHLORIDE (test code = CL) 99.0 mmol/L 98-107 N CARBON DIOXIDE (test code = CO2) 26.0 mmol/L 21-32 N ANION GAP (test code = GAP) 15.5 10-20 N GLUCOSE (test code = GLU) 190 mg/dL 74-106 H BLOOD UREA NITROGEN (test code = BUN) 25 mg/dL 7-18 H RESULT VERIFIED BY REPEAT ANALYSIS GLOMERULAR FILTRATION RATE (test code = GFR) 11 mL/min >=60 Estimated GFR by using Modified MDRD formula.Chronic kidney disease is defined as either kidney damageor GFR <60 mL/min/1.73 m2 for >3 months. CREATININE (test code = CREAT) 3.80 mg/dL 0.55-1.02 H Note change in reference range due to change in reagent. BUN/CREATININE RATIO (test code = BUN/CREA) 6.6 10-20 L TOTAL PROTEIN (test code = PROT) 8.3 gram/dL 6.4-8.2 H ALBUMIN (test code = ALB) 3.4 g/dL 3.4-5.0 N GLOBULIN (test code = GLOB) 4.9 gram/dL 2.7-4.2 H ALBUMIN/GLOBULIN RATIO (test code = A/G) 0.7 0.75-1.50 L CALCIUM (test code = CA) 8.1 mg/dL 8.5-10.1 L BILIRUBIN TOTAL (test code = BILT) 0.50 mg/dL 0.0-1.0 N SGOT/AST (test code = AST) 14 IUnit/L 15-37 L SGPT/ALT (test code = ALT) 11 IUnit/L 12-78 L ALKALINE PHOSPHATASE TOTAL (test code = ALKP) 126 IUnit/L 45-117 H Note change in reference range due to change in reagent. COMPREHENSIVE METABOLIC [id number] 04:46:00* Test Item Value Reference Range Interpretation Comments SODIUM (test code = NA) 137 mmol/L 136-145 RESU LT VERIFIED BY REPEAT ANALYSIS POTASSIUM (test code = K) 3.5 mmol/L 3.5-5.1 N CHLORIDE (test code = CL) 99.0 mmol/L 98-107 N CARBON DIOXIDE (test code = CO2) mmol/L 21-32 ANION GAP (test code = GAP) 10-20 GLUCOSE (test code = GLU) mg/dL 74-106 BLOOD UREA NITROGEN (test code = BUN) mg/dL 7-18 GLOMERULAR FILTRATION RATE (test code = GFR) mL/min >=60 CREATININE (test code = CREAT) mg/dL 0.55-1.02 BUN/CREATININE RATIO (test code = BUN/CREA) 10-20 TOTAL PROTEIN (test code = PROT) gram/dL 6.4-8.2 ALBUMIN (test code = ALB) g/dL 3.4-5.0 GLOBULIN (test code = GLOB) gram/dL 2.7-4.2 ALBUMIN/GLOBULIN RATIO (test code = A/G) 0.75-1.50 CALCIUM (test code = CA) mg/dL 8.5-10.1 BILIRUBIN TOTAL (test code = BILT) mg/dL 0.0-1.0 SGOT/AST (test code = AST) IUnit/L 15-37 SGPT/ALT (test code = ALT) IUnit/L 12-78 ALKALINE PHOSPHATASE TOTAL (test code = ALKP) IUnit/L 45-117 CBC W/AUTO [id number] 04:26:00* Test Item Value Reference Range Interpretation Comments WHITE BLOOD CELL (test code = WBC) 6.9 K/mm3 4.5-12.5 N RED BLOOD CELL (test code = RBC) 3.37 mill/mm3 3.7-5.2 L HEMOGLOBIN (test code = HGB) 9.8 gram/dL 11.5-15.5 L HEMATOCRIT (test code = HCT) 30.7 % 36.0-46.0 L MEAN CELL VOLUME (test code = MCV) 91.1 fL 80-98 N MEAN CELL HGB (test code = MCH) 29.1 picogram 27.0-33.0 N MEAN CELL HGB CONCETRATION (test code = MCHC) 31.9 gram/dL 33.0-36. 0 L RED CELL DISTRIBUTION WIDTH (test code = RDW) 16.1 % 11.6-16. 2 N RED CELL DISTRIBUTION WIDTH SD (test code = RDW-SD) 51.9 fL 37 .0-51.0 H PLATELET COUNT (test code = PLT) 256 K/mm3 150-450 N MEAN PLATELET VOLUME (test code = MPV) 11.3 fL 6.7-11.0 H NEUTROPHIL % (test code = NT%) 83.3 % 39.0-69.0 H IMMATURE GRANULOCYTE % (test code = IG%) 0.6 % 0.0-5.0 N LYMPHOCYTE % (test code = LY%) 8.4 % 25.0-55.0 L MONOCYTE % (test code = MO%) 7.4 % 0.0-10.0 N EOSINOPHIL % (test code = EO%) 0.0 % 0.0-5.0 N BASOPHIL % (test code = BA%) 0.3 % 0.0-1.0 N NUCLEATED RBC % (test code = NRBC%) 0.0 % 0-0 N NEUTROPHIL # (test code = NT#) 5.73 K/mm3 1.8-7.7 N IMMATURE GRANULOCYTE # (test code = IG#) 0.04 x10 3/uL 0-0.03 H LYMPHOCYTE # (test code = LY#) 0.58 K/mm3 1.0-5.0 L MONOCYTE # (test code = MO#) 0.51 K/mm3 0-0.8 N EOSINOPHIL # (test code = EO#) 0.00 K/mm3 0.0-0.5 N BASOPHIL # (test code = BA#) 0.02 K/mm3 0.0-0.2 N NUCLEATED RBC # (test code = NRBC#) 0.00 K/mm3 0.0-0.1 N MANUAL DIFF REQUIRED (test code = MDIFF) NO [id number] 18:43:00* Test Item Value Reference Range Interpretation Comments GLUBED (test code = GLUBED) 202 mg/dL 74-106 H Performed by certified matrix bath operator at [facility] AG HEPAT B [id number] 14:20:00* Test Item Value Reference Range Interpretation Comments AG HEPAT B SURF (test code = HBSAG) Nonreactive Index Nonreactive - CT ABD PELVIS [id number] 11:54:00 Name: VIVEK FINNEY [facility] : 1940 Age/S: 78 / F [address] Unit #: [id number] Loc: [place], [place] [address] Phys: Salvatore Means MD Acct: [id number] Dis Date: Status: REG ER PHONE #: [phone] Exam Date: 04/30/2019 1100 FAX #: [phone] Reason: abdominal pain EXAMS: CPT CODE: [id number] CT ABD PELVIS W/CONT [id number] REASON FOR EXAM: abdominal pain EXAM ORDER DATE: 04/30/2019 10:15 AM Ordering M.DKirit: Salvatore Means MD PROCEDURE: - CT ABD PELVIS W/CONT contrast-enhanced axial CT images were acquired through the abdomen/pelvis at 5 mm intervals. Sagittal and coronal reformatted images were generated. Automated exposure control was utilized for this reduction. Phases of contrast: venous and delayed COMPARISON: CT abdomen and pelvis October 19, 2018 FINDINGS: Visualized thorax: Groundglass opacities and interlobular septal thickening are seen in the lung bases. Moderate-sized pericardial effusion is seen. Three-vessel coronary calcifications are present. Cardiac chambers are enlarged relative to the thorax Hepatobiliary system: Prior cholecystectomy with subsequent dilation of the biliary tree Pancreas: Atrophic Spleen: Normal Adrenal glands: Normal Genitourinary system: The kidneys are atrophic. No abnormalities of the gynecologic organs or urinary bladder Gastrointestinal tract and appendix: There is a ball of stool in the rectum that measures 7 cm in diameter. There is also diverticulosis of the sigmoid colon without evidence of diverticulitis. There is mural thickening of the transverse colon. The small bowel is within normal limits. Appendix and stomach are unremarkable. Abdominal vascular structures: Atherosclerotic calcifications are seen throughout the abdominal aorta and extend into the mesenteric arteries and iliac arteries Peritoneum and retroperitoneum: No free fluid or free air. No omental PAGE 1 Signed Report (CONTINUED) Name: VIVEK FINNEY [facility] : 1940 Age/S: 78 / F [address] [facility] Unit #: [id number] Loc: [place] [address] Phys: Salvatore Means MD Acct: [id number] Dis Date: Status: REG ER PHONE #: [phone] Exam Date: 04/30/2019 1100 FAX #: [phone] Reason: abdominal pain EXAMS: CPT CODE: [id number] CT ABD PELVIS W/CONT 11440 < Continued> or mesenteric masses. No abnormal lymph nodes. Musculoskeletal structures and abdominal wall: Degenerative changes are present in thoracic spine. Hardware in the left femur is unchanged from the previous exam with no evidence of hardware loosening fat-containing umbilical hernia is present. Anasarca is present IMPRESSION: Mural thickening of the transverse colon may represent an infectious versus inflammatory colitis. There is also diverticulosis of the sigmoid colon without evidence of diverticulitis. CHF with pulmonary edema. Location: [facility] at 1154 Reported and signed by: Navin Butt MD CC: Harsh Gan; Salvatore Means MD Technologist:Alexander Mccullough RT(R),(MR),(CT); CTDI: DLP: Trnscb Date/Time: 04/30/2019 (2913) t.[email or web address] Orig Print D/T: S: 04/30/2019 (6476) PAGE 2 Signed Report - XR CHEST 1 [id number] 11:20:00 FAX: Harsh Rodrigez MD [phone] [place]: St: REG FAX: Salvatore Means MD Name: VIVEK FINNEY [facility] : 1940 Age/S: 78/F [address] [facility] Unit #: [id number] Loc: [place] [address] Phys: Salvatore Means MD Acct: [id number] Dis Date: Status: REG ER PHONE #: [phone] Exam Date: 04/30/2019 1047 FAX #: [phone] Reason: ESRD, vomiting EXAMS: CPT CODE: [id number] XR CHEST 1 V 46761 REASON FOR EXAM: ESRD, vomiting Exam Order Date: 04/30/2019 10:43 AM Ordering M.DKirit: Salvatore Means MD PROCEDURE: - XR CHEST 1 V COMPARISON: Radiograph and CT scan of the chest December 12, 2018 FINDINGS: A right IJ dialys is catheter terminates in the cavoatrial junction. Prominent inter stitial markings likely represent mild interstitial edema. No confluent ai rspace disease or pleural effusion is seen. The cardiomediastinal silhouette and the left subclavian stent graft are stable in appearance. N o acute musculoskeletal abnormality. Prior cholecystectomy. IMPRESSION: Cardiomegaly with findings of interstitial edema may repre sent CHF. No confluent airspace disease is seen however. Location: [facility] 20 at 1120 Reported and signed by: Navin Butt MD CC: Harsh Gan; Salvatore Means MD Technologist: CHERI SHEPHERD JR Trnscrd Date/Time/By: (1120) : By: [email or web address] Orig Print D/T: S: 04/30/2019 (7413) PAGE 1 Signed Report BASIC METABOLIC [id number] 11:04:00* Test Item Value Reference Range Interpretation Comments SODIUM (test code = NA) 130 mmol/L 136-145 L POTASSIUM (test code = K) 4.1 mmol/L 3.5-5.1 N CHLORIDE (test code = CL) 94.0 mmol/L 98-107 L CARBON DIOXIDE (test code = CO2) 20.0 mmol/L 21-32 L ANION GAP (test code = GAP) 20.1 10-20 H GLUCOSE (test code = GLU) 200 mg/dL 74-106 H BLOOD UREA NITROGEN (test code = BUN) 57 mg/dL 7-18 H GLOMERULAR FILTRATION RATE (test code = GFR) 7 mL/min >=60 Estimated GFR by using Modified MDRD formula.Chronic kidney disease is defined as either kidney damageor GFR <60 mL/min/1.73 m2 for >3 months. CREATININE (test code = CREAT) 6.20 mg/dL 0.55-1.02 H Note change in reference range due to change in reagent. BUN/CREATININE RATIO (test code = BUN/CREA) 9.2 10-20 L CALCIUM (test code = CA) 7.8 mg/dL 8.5-10.1 L HEPATIC FUNCTION [id number] 11:04:00* Test Item Value Reference Range Interpretation Comments TOTAL PROTEIN (test code = PROT) 8.8 gram/dL 6.4-8.2 H ALBUMIN (test code = ALB) 3.4 g/dL 3.4-5.0 N GLOBULIN (test code = GLOB) 5.4 gram/dL 2.7-4.2 H ALBUMIN/GLOBULIN RATIO (test code = A/G) 0.6 0.75-1.50 L BILIRUBIN TOTAL (test code = BILT) 0.50 mg/dL 0.0-1.0 N BILIRUBIN DIRECT (test code = BILD) 0.17 mg/dL 0.0-0.20 N SGOT/AST (test code = AST) 21 IUnit/L 15-37 N SGPT/ALT (test code = ALT) 14 IUnit/L 12-78 N ALKALINE PHOSPHATASE TOTAL (test code = ALKP) 171 IUnit/L 45-117 H Note change in reference range due to change in reagent. [id number] 11:04:00* Test Item Value Reference Range Interpretation Comments LIPASE (test code = LIP) 107 U/L 73.0-393.0 N [id number] 11:04:00* Test Item Value Reference Range Interpretation Comments TROPONIN-I (test code = TROPI) <0.015 ng/mL 0-0.045 N BASIC METABOLIC [id number] 10:53:00* Test Item Value Reference Range Interpretation Comments SODIUM (test code = NA) 130 mmol/L 136-145 L POTASSIUM (test code = K) 4.1 mmol/L 3.5-5.1 N CHLORIDE (test code = CL) 94.0 mmol/L 98-107 L CARBON DIOXIDE (test code = CO2) mmol/L 21-32 ANION GAP (test code = GAP) 10-20 GLUCOSE (test code = GLU) mg/dL 74-106 BLOOD UREA NITROGEN (test code = BUN) mg/dL 7-18 GLOMERULAR FILTRATION RATE (test code = GFR) mL/min >=60 CREATININE (test code = CREAT) mg/dL 0.55-1.02 BUN/CREATININE RATIO (test code = BUN/CREA) 10-20 CALCIUM (test code = CA) mg/dL 8.5-10.1 HEPATIC FUNCTION [id number] 10:53:00* Test Item Value Reference Range Interpretation Comments TOTAL PROTEIN (test code = PROT) gram/dL 6.4-8.2 ALBUMIN (test code = ALB) g/dL 3.4-5.0 GLOBULIN (test code = GLOB) gram/dL 2.7-4.2 ALBUMIN/GLOBULIN RATIO (test code = A/G) 0.75-1.50 BILIRUBIN TOTAL (test code = BILT) mg/dL 0.0-1.0 BILIRUBIN DIRECT (test code = BILD) mg/dL 0.0-0.20 SGOT/AST (test code = AST) IUnit/L 15-37 SGPT/ALT (test code = ALT) IUnit/L 12-78 ALKALINE PHOSPHATASE TOTAL (test code = ALKP) IUnit/L 45-117 [id number] 10:53:00* Test Item Value Reference Range Interpretation Comments LIPASE (test code = LIP) U/L 73.0-393.0 [id number] 10:53:00* Test Item Value Reference Range Interpretation Comments TROPONIN-I (test code = TROPI) ng/mL 0-0.045 [id number] 10:53:00* Test Item Value Reference Range Interpretation Comments MAGNESIUM (test code = MAG) 2.2 mg/dL 1.8-2.4 N CBC W/O [id number] 10:41:00* Test Item Value Reference Range Interpretation Comments WHITE BLOOD CELL (test code = WBC) 9.8 K/mm3 4.5-12.5 N RED BLOOD CELL (test code = RBC) 3.43 mill/mm3 3.7-5.2 L HEMOGLOBIN (test code = HGB) 9.9 gram/dL 11.5-15.5 L HEMATOCRIT (test code = HCT) 31.5 % 36.0-46.0 L MEAN CELL VOLUME (test code = MCV) 91.8 fL 80-98 N MEAN CELL HGB (test code = MCH) 28.9 picogram 27.0-33.0 N MEAN CELL HGB CONCETRATION (test code = MCHC) 31.4 gram/dL 33.0-36. 0 L RED CELL DISTRIBUTION WIDTH (test code = RDW) 15.9 % 11.6-16. 2 N PLATELET COUNT (test code = PLT) 237 K/mm3 150-450 N MEAN PLATELET VOLUME (test code = MPV) 11.3 fL 6.7-11.0 H [id number] 10:06:00* Test Item Value Reference Range Interpretation Comments GLUBED (test code = GLUBED) 175 mg/dL 74-106 H Performed by certified matrix bath operator at [facility] [id number] 13:25:00* Test Item Value Reference Range Interpretation Comments GLUBED (test code = GLUBED) 201 mg/dL 74-106 H Performed by certified matrix bath operator at [facility] [id number] 08:36:00* Test Item Value Reference Range Interpretation Comments GLUBED (test code = GLUBED) 111 mg/dL 74-106 H Performed by certified matrix bath operator at [facility] COMPREHENSIVE METABOLIC [id number] 07:26:00* Test Item Value Reference Range Interpretation Comments SODIUM (test code = NA) 134 mmol/L 136-145 L POTASSIUM (test code = K) 4.0 mmol/L 3.5-5.1 N CHLORIDE (test code = CL) 93.0 mmol/L 98-107 L CARBON DIOXIDE (test code = CO2) 30.0 mmol/L 21-32 N ANION GAP (test code = GAP) 15.0 10-20 N GLUCOSE (test code = GLU) 126 mg/dL 74-106 H BLOOD UREA NITROGEN (test code = BUN) 24 mg/dL 7-18 H GLOMERULAR FILTRATION RATE (test code = GFR) 10 mL/min >=60 Estimated GFR by using Modified MDRD formula.Chronic kidney disease is defined as either kidney damageor GFR <60 mL/min/1.73 m2 for >3 months. CREATININE (test code = CREAT) 4.10 mg/dL 0.55-1.02 H Note change in reference range due to change in reagent. BUN/CREATININE RATIO (test code = BUN/CREA) 5.8 10-20 L TOTAL PROTEIN (test code = PROT) 7.5 gram/dL 6.4-8.2 N ALBUMIN (test code = ALB) 2.9 g/dL 3.4-5.0 L GLOBULIN (test code = GLOB) 4.6 gram/dL 2.7-4.2 H ALBUMIN/GLOBULIN RATIO (test code = A/G) 0.6 0.75-1.50 L CALCIUM (test code = CA) 8.0 mg/dL 8.5-10.1 L BILIRUBIN TOTAL (test code = BILT) 0.40 mg/dL 0.0-1.0 N SGOT/AST (test code = AST) 13 IUnit/L 15-37 L SGPT/ALT (test code = ALT) 17 IUnit/L 12-78 N ALKALINE PHOSPHATASE TOTAL (test code = ALKP) 138 IUnit/L 45-117 H Note change in reference range due to change in reagent. CBC W/AUTO [id number] 06:50:00* Test Item Value Reference Range Interpretation Comments WHITE BLOOD CELL (test code = WBC) 5.8 K/mm3 4.5-12.5 N RED BLOOD CELL (test code = RBC) 3.64 mill/mm3 3.7-5.2 L HEMOGLOBIN (test code = HGB) 10.6 gram/dL 11.5-15.5 L HEMATOCRIT (test code = HCT) 34.9 % 36.0-46.0 L MEAN CELL VOLUME (test code = MCV) 95.9 fL 80-98 N MEAN CELL HGB (test code = MCH) 29.1 picogram 27.0-33.0 N MEAN CELL HGB CONCETRATION (test code = MCHC) 30.4 gram/dL 33.0-36. 0 L RED CELL DISTRIBUTION WIDTH (test code = RDW) 17.1 % 11.6-16. 2 H RED CELL DISTRIBUTION WIDTH SD (test code = RDW-SD) 60.0 fL 37 .0-51.0 H PLATELET COUNT (test code = PLT) 281 K/mm3 150-450 N MEAN PLATELET VOLUME (test code = MPV) 11.1 fL 6.7-11.0 H NEUTROPHIL % (test code = NT%) 62.8 % 39.0-69.0 N IMMATURE GRANULOCYTE % (test code = IG%) 0.5 % 0.0-5.0 N LYMPHOCYTE % (test code = LY%) 20.2 % 25.0-55.0 L MONOCYTE % (test code = MO%) 12.7 % 0.0-10.0 H EOSINOPHIL % (test code = EO%) 2.9 % 0.0-5.0 N BASOPHIL % (test code = BA%) 0.9 % 0.0-1.0 N NUCLEATED RBC % (test code = NRBC%) 0.0 % 0-0 N NEUTROPHIL # (test code = NT#) 3.66 K/mm3 1.8-7.7 N IMMATURE GRANULOCYTE # (test code = IG#) 0.03 x10 3/uL 0-0.03 N LYMPHOCYTE # (test code = LY#) 1.18 K/mm3 1.0-5.0 N MONOCYTE # (test code = MO#) 0.74 K/mm3 0-0.8 N EOSINOPHIL # (test code = EO#) 0.17 K/mm3 0.0-0.5 N BASOPHIL # (test code = BA#) 0.05 K/mm3 0.0-0.2 N NUCLEATED RBC # (test code = NRBC#) 0.00 K/mm3 0.0-0.1 N MANUAL DIFF REQUIRED (test code = MDIFF) NO [id number] 04:49:00* Test Item Value Reference Range Interpretation Comments GLUBED (test code = GLUBED) 136 mg/dL 74-106 H Performed by certified matrix bath operator at [facility] [id number] 20:39:00* Test Item Value Reference Range Interpretation Comments GLUBED (test code = GLUBED) 60 mg/dL 74-106 L Performed by certified matrix bath operator at [facility] [id number] 16:37:00* Test Item Value Reference Range Interpretation Comments GLUBED (test code = GLUBED) 171 mg/dL 74-106 H Performed by certified matrix bath operator at [facility] - CTA CHEST FOR [id number] 15:14:00 Name: VIVEK FINNEY [facility] : 1940 Age/S: 78 / F [address] [facility] #: [id number] Loc: [place] [address] Phys: Ravin Toledo MD Acct: [id number] Dis Date: Status: ADM IN PHONE #: [phone] Exam Date: 12/12/2018 1444 FAX #: [phone] Reason: SOB EXAMS: CPT CODE: [id number] [place] [id number] REASON FOR EXAM: SOB EXAM ORDER DATE: 12/12/2018 11:33 AM Ordering: Ravin Toledo MD Attending:Ravin Toledo MD Location:[facility] PROCEDURE: - CTA CHEST FOR PE FINDINGS: CT images of the chest were obtained with IV contrast. Reconstructed sagittal and coronal images of the chest were provided for interpretation. Dose modulation, iterative reconstruction, and/or weight based adjustment of the MA/KV was utilized to reduce the radiation dose to as low as reasonably achievable. Intravenous contrast: 100cc of Omnipaque 370. The heart size is mildly enlarged. Small pericardial effusion noted. A left-sided aortic arch noted. A vascular stent seen within the left axillary vein. No evidence of dissection or aneurysmal dilatation. No filling defect seen within the main or lobar pulmonary arteries to suggest pulmonary embolus. No evidence of mediastinal or hilar adenopathy. Diffuse groundglass opacity of the lungs. IMPRESSION: Mild cardiomegaly with small pericardial effusion. 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 Congestive heart failure with pulmonary edema and small left pleural effusion. No evidence of pulmonary embolus at 1514 Reported and signed by: Galileo Saul M.D. CC: Ravin Toledo MD; Harsh Gan Technologist:Kristi Mary RT(R),CT; CTDI: DLP: Trnscb Date/Time: 12/12/2018 (151) tANA.VTL Orig Print D/T: S: 12/12/2018 (1128) PAGE 1 Signed Report AG HEPAT B [id number] 15:13:00* Test Item Value Reference Range Interpretation Comments AG HEPAT B SURF (test code = HBSAG) Nonreactive Index Nonreactive [id number] 12:16:00* Test Item Value Reference Range Interpretation Comments GLUBED (test code = GLUBED) 85 mg/dL 74-106 N Performed by certified matrix bath operator at [facility] [id number] 12:15:00* Test Item Value Reference Range Interpretation Comments GLUBED (test code = GLUBED) 78 mg/dL 74-106 N [facility]~ [id number] 11:35:00* Test Item Value Reference Range Interpretation Comments TROPONIN-I (test code = TROPI) <0.015 ng/mL 0-0.045 N COMMENTS TO HARNESS BUILDER: COLLECT 3 HOURS AFTER PREVIOUS [id number] 08:25:00* Test Item Value Reference Range Interpretation Comments TROPONIN-I (test code = TROPI) <0.015 ng/mL 0-0.045 N COMMENTS TO HARNESS BUILDER: COLLECT 3 HOURS AFTER PREVIOUS SAMPLEB-TYPE NATRIURETIC [id number] 06:10:00* Test Item Value Reference Range Interpretation Comments B-TYPE NATRIURETIC PEPTIDE (test code = BNP) 2352.43 pgram/mL 0-100 H - XR CHEST 1 [id number] 06:09:00 FAX: Kingsley Wood MD [phone] [place]: St: [facility] FAX: Harsh Rodrigez MD [phone] Name: VIVEK FINNEY [facility] : 1940 Age/S: 78/F [address] [facility] Unit #: [id number] Loc: [place] [address] Phys: Kingsley Wood MD Acct: [id number] Dis Date: Status: REG ER PHONE #: [phone] Exam Date: 12/12/2018 0430 FAX #: [phone] Reason: Shortness of Breath EXAMS: CPT CODE: [id number] XR CHEST 1 V 75056 - XR CHEST 1 V, 12/12/2018 4:10 AM Reason For Examination: Shortness of Breath Comparison: October 09, 2018 Location: R16 Findings LUNGS: Likely vascular congestion/mild edema. Atelectasis versus early right basilar consolidation PLEURA: No pleural effusions CARDIOMEDIASTINAL SILHOUETTE Enlarged with aortic knob calcifications Left axillary vascular stent is noted IMPRESSION: Findings compatible with fluid overload, Aortic knob calcifications, with increased prominence when compared to prior examinations, recommend further evaluation with nonemergent CTA of the chest as clinically indicated Question right basilar consolidation versus atele ctasis at 0609 Reported and signed by: Luz Daigle M.D. CC: Kingsley Wood MD; Harsh Gan Technologist: Cammie Hamm Trnscrd Date/Time/By: 12/12/2018 ( 608) : By: [email or web address] Orig Print D/T: S: 12/12/2018 (611) PAGE 1 Signed Report BASIC METABOLIC [id number] 05:33:00* Test Item Value Reference Range Interpretation Comments SODIUM (test code = NA) 138 mmol/L 136-145 N POTASSIUM (test code = K) 3.5 mmol/L 3.5-5.1 N CHLORIDE (test code = CL) 94.0 mmol/L 98-107 L CARBON DIOXIDE (test code = CO2) 33.0 mmol/L 21-32 H ANION GAP (test code = GAP) 14.5 10-20 N GLUCOSE (test code = GLU) 91 mg/dL 74-106 N BLOOD UREA NITROGEN (test code = BUN) 16 mg/dL 7-18 N GLOMERULAR FILTRATION RATE (test code = GFR) 16 mL/min >=60 Estimated GFR by using Modified MDRD formula.Chronic kidney disease is defined as either kidney damageor GFR <60 mL/min/1.73 m2 for >3 months. CREATININE (test code = CREAT) 2.90 mg/dL 0.55-1.02 H Note change in reference range due to change in reagent. BUN/CREATININE RATIO (test code = BUN/CREA) 5.5 10-20 L CALCIUM (test code = CA) 8.0 mg/dL 8.5-10.1 L [id number] 05:33:00* Test Item Value Reference Range Interpretation Comments TROPONIN-I (test code = TROPI) <0.015 ng/mL 0-0.045 N BASIC METABOLIC [id number] 05:27:00* Test Item Value Reference Range Interpretation Comments SODIUM (test code = NA) 138 mmol/L 136-145 N POTASSIUM (test code = K) 3.5 mmol/L 3.5-5.1 N CHLORIDE (test code = CL) 94.0 mmol/L 98-107 L CARBON DIOXIDE (test code = CO2) mmol/L 21-32 ANION GAP (test code = GAP) 10-20 GLUCOSE (test code = GLU) mg/dL 74-106 BLOOD UREA NITROGEN (test code = BUN) mg/dL 7-18 GLOMERULAR FILTRATION RATE (test code = GFR) mL/min >=60 CREATININE (test code = CREAT) mg/dL 0.55-1.02 BUN/CREATININE RATIO (test code = BUN/CREA) 10-20 CALCIUM (test code = CA) mg/dL 8.5-10.1 [id number] 05:27:00* Test Item Value Reference Range Interpretation Comments TROPONIN-I (test code = TROPI) ng/mL 0-0.045 CBC W/O [id number] 05:15:00* Test Item Value Reference Range Interpretation Comments WHITE BLOOD CELL (test code = WBC) 5.9 K/mm3 4.5-12.5 N RED BLOOD CELL (test code = RBC) 3.46 mill/mm3 3.7-5.2 L HEMOGLOBIN (test code = HGB) 10.1 gram/dL 11.5-15.5 L HEMATOCRIT (test code = HCT) 33.2 % 36.0-46.0 L MEAN CELL VOLUME (test code = MCV) 96.0 fL 80-98 N MEAN CELL HGB (test code = MCH) 29.2 picogram 27.0-33.0 N MEAN CELL HGB CONCETRATION (test code = MCHC) 30.4 gram/dL 33.0-36. 0 L RED CELL DISTRIBUTION WIDTH (test code = RDW) 17.3 % 11.6-16. 2 H PLATELET COUNT (test code = PLT) 275 K/mm3 150-450 N MEAN PLATELET VOLUME (test code = MPV) 11.2 fL 6.7-11.0 H [id number] 23:38:00* Test Item Value Reference Range Interpretation Comments GLUBED (test code = GLUBED) 162 mg/dL 74-106 H Performed by certified matrix bath operator at [facility] [id number] 13:05:00* Test Item Value Reference Range Interpretation Comments GLYCOSYLATED HEMOGLOBIN (HA1C) (test code = GLYHGB) < 3.5 % HbA1 4. 8-6.0 L ESTIMATED AVERAGE GLUCOSE (test code = EAG) 54 MG/DL CBC W/AUTO [id number] 12:24:00* Test Item Value Reference Range Interpretation Comments WHITE BLOOD CELL (test code = WBC) 6.9 K/mm3 4.5-12.5 N RED BLOOD CELL (test code = RBC) 2.91 mill/mm3 3.7-5.2 L HEMOGLOBIN (test code = HGB) 8.3 gram/dL 11.5-15.5 L HEMATOCRIT (test code = HCT) 26.5 % 36.0-46.0 L MEAN CELL VOLUME (test code = MCV) 91.1 fL 80-98 N MEAN CELL HGB (test code = MCH) 28.5 picogram 27.0-33.0 N MEAN CELL HGB CONCETRATION (test code = MCHC) 31.3 gram/dL 33.0-36. 0 L RED CELL DISTRIBUTION WIDTH (test code = RDW) 18.1 % 11.6-16. 2 H RED CELL DISTRIBUTION WIDTH SD (test code = RDW-SD) 60.3 fL 37 .0-51.0 H PLATELET COUNT (test code = PLT) 121 K/mm3 150-450 L MEAN PLATELET VOLUME (test code = MPV) 12.8 fL 6.7-11.0 H NEUTROPHIL % (test code = NT%) 78.6 % 39.0-69.0 H IMMATURE GRANULOCYTE % (test code = IG%) 0.3 % 0.0-5.0 N LYMPHOCYTE % (test code = LY%) 12.3 % 25.0-55.0 L MONOCYTE % (test code = MO%) 6.8 % 0.0-10.0 N EOSINOPHIL % (test code = EO%) 1.6 % 0.0-5.0 N BASOPHIL % (test code = BA%) 0.4 % 0.0-1.0 N NUCLEATED RBC % (test code = NRBC%) 0.0 % 0-0 N NEUTROPHIL # (test code = NT#) 5.45 K/mm3 1.8-7.7 N IMMATURE GRANULOCYTE # (test code = IG#) 0.02 x10 3/uL 0-0.03 N LYMPHOCYTE # (test code = LY#) 0.85 K/mm3 1.0-5.0 L MONOCYTE # (test code = MO#) 0.47 K/mm3 0-0.8 N EOSINOPHIL # (test code = EO#) 0.11 K/mm3 0.0-0.5 N BASOPHIL # (test code = BA#) 0.03 K/mm3 0.0-0.2 N NUCLEATED RBC # (test code = NRBC#) 0.00 K/mm3 0.0-0.1 N [id number] 11:40:00* Test Item Value Reference Range Interpretation Comments GLUBED (test code = GLUBED) 173 mg/dL 74-106 H Performed by certified matrix bath operator at [facility] [id number] 05:52:00* Test Item Value Reference Range Interpretation Comments GLUBED (test code = GLUBED) 179 mg/dL 74-106 H Performed by certified matrix bath operator at [facility] [id number] 20:34:00* Test Item Value Reference Range Interpretation Comments GLUBED (test code = GLUBED) 136 mg/dL 74-106 H Performed by certified matrix bath operator at [facility] [id number] 17:57:00* Test Item Value Reference Range Interpretation Comments GLUBED (test code = GLUBED) 171 mg/dL 74-106 H Performed by certified matrix bath operator at [facility] [id number] 15:10:00* Test Item Value Reference Range Interpretation Comments GLUBED (test code = GLUBED) 171 mg/dL 74-106 H Performed by certified matrix bath operator at [facility] [id number] 12:26:00* Test Item Value Reference Range Interpretation Comments GLUBED (test code = GLUBED) 168 mg/dL 74-106 H Performed by certified matrix bath operator at [facility] - NM GASTRIC [id number] 09:49:00 FAX: Ravin Toledo MD [phone] [place]: B St: ADM FAX: Harsh Rodrigez MD [phone] Name: VIVEK FINNEY [facility] : 1940 Age/S: 78/F [address] [facility] Unit #: [id number] Loc: [place].[address] [place] [address] Phys: Ravin Toledo MD Acct: [id number] Dis Date: Status: ADM IN PHONE #: [phone] Exam Date: 10/24/2018947 FAX #: [phone] Reason: GASTROPARESIS EXAMS: CPT CODE: [id number] NM GASTRIC EMPTYING 28157 HISTORY: GASTROPARESIS EXAM: NUCLEAR MEDICINE GASTRIC EMPTYING STUDY. COMPARISON: None TECHNIQUE: After patient ingested 1 mCi TC 99m sulfur colloid mixed with oatmeal, sequen tial imaging was acquired over the anterior abdomen for 90 minutes. FINDINGS: No appreciable emptying of gastric contents were appreci ated during the examination. IMPRESSION: No apprec iable blunting of gastric contents. Findings may represent gastroparesis versus gastric outlet obstruction. at 0949 Reported and signed by: Pat Butt MD CC: Ravin Toledo MD; Harsh Gan Technologist: KAY MONTIEL Trnscrd Date/Time/By: 10/24/2018 (0949) : By: [email or web address] Orig Print D/T: S: 10/24/2018 (8644) PAGE 1 Signed Report [id number] 08:22:00* Test Item Value Reference Range Interpretation Comments GLUBED (test code = GLUBED) 136 mg/dL 74-106 H Performed by certified matrix bath operator at [facility] [id number] 08:22:00* Test Item Value Reference Range Interpretation Comments GLUBED (test code = GLUBED) 204 mg/dL 74-106 H Performed by certified matrix bath operator at [facility] [id number] 08:21:00* Test Item Value Reference Range Interpretation Comments GLUBED (test code = GLUBED) 61 mg/dL 74-106 L Performed by certified matrix bath operator at [facility] [id number] 08:21:00* Test Item Value Reference Range Interpretation Comments GLUBED (test code = GLUBED) 148 mg/dL 74-106 H Performed by certified matrix bath operator at [facility] [id number] 08:21:00* Test Item Value Reference Range Interpretation Comments GLUBED (test code = GLUBED) 49 mg/dL 74-106 LL Performed by certified matrix bath operator at [facility] [id number] 08:19:00* Test Item Value Reference Range Interpretation Comments GLUBED (test code = GLUBED) 142 mg/dL 74-106 H Performed by certified matrix bath operator at [facility] COMPREHENSIVE METABOLIC [id number] 06:11:00* Test Item Value Reference Range Interpretation Comments SODIUM (test code = NA) 134 mmol/L 136-145 L POTASSIUM (test code = K) 4.6 mmol/L 3.5-5.1 N CHLORIDE (test code = CL) 97.0 mmol/L 98-107 L CARBON DIOXIDE (test code = CO2) 28.0 mmol/L 21-32 N ANION GAP (test code = GAP) 13.6 10-20 N GLUCOSE (test code = GLU) 156 mg/dL 74-106 H BLOOD UREA NITROGEN (test code = BUN) 25 mg/dL 7-18 H RESULT VERIFIED BY REPEAT ANALYSIS GLOMERULAR FILTRATION RATE (test code = GFR) 13 mL/min >=60 Estimated GFR by using Modified MDRD formula.Chronic kidney disease is defined as either kidney damageor GFR <60 mL/min/1.73 m2 for >3 months. CREATININE (test code = CREAT) 3.50 mg/dL 0.55-1.02 H Note change in reference range due to change in reagent. BUN/CREATININE RATIO (test code = BUN/CREA) 7.1 10-20 L TOTAL PROTEIN (test code = PROT) 6.1 gram/dL 6.4-8.2 L ALBUMIN (test code = ALB) 2.9 g/dL 3.4-5.0 L GLOBULIN (test code = GLOB) 3.2 gram/dL 2.7-4.2 N ALBUMIN/GLOBULIN RATIO (test code = A/G) 0.9 0.75-1.50 N CALCIUM (test code = CA) 7.6 mg/dL 8.5-10.1 L BILIRUBIN TOTAL (test code = BILT) 0.50 mg/dL 0.0-1.0 N SGOT/AST (test code = AST) 17 IUnit/L 15-37 N SGPT/ALT (test code = ALT) 11 IUnit/L 12-78 L ALKALINE PHOSPHATASE TOTAL (test code = ALKP) 121 IUnit/L 45-117 H Note change in reference range due to change in reagent. COMPREHENSIVE METABOLIC [id number] 05:52:00* Test Item Value Reference Range Interpretation Comments SODIUM (test code = NA) 134 mmol/L 136-145 L POTASSIUM (test code = K) 4.6 mmol/L 3.5-5.1 N CHLORIDE (test code = CL) 97.0 mmol/L 98-107 L CARBON DIOXIDE (test code = CO2) mmol/L 21-32 ANION GAP (test code = GAP) 10-20 GLUCOSE (test code = GLU) mg/dL 74-106 BLOOD UREA NITROGEN (test code = BUN) mg/dL 7-18 GLOMERULAR FILTRATION RATE (test code = GFR) mL/min >=60 CREATININE (test code = CREAT) mg/dL 0.55-1.02 BUN/CREATININE RATIO (test code = BUN/CREA) 10-20 TOTAL PROTEIN (test code = PROT) gram/dL 6.4-8.2 ALBUMIN (test code = ALB) g/dL 3.4-5.0 GLOBULIN (test code = GLOB) gram/dL 2.7-4.2 ALBUMIN/GLOBULIN RATIO (test code = A/G) 0.75-1.50 CALCIUM (test code = CA) mg/dL 8.5-10.1 BILIRUBIN TOTAL (test code = BILT) mg/dL 0.0-1.0 SGOT/AST (test code = AST) IUnit/L 15-37 SGPT/ALT (test code = ALT) IUnit/L 12-78 ALKALINE PHOSPHATASE TOTAL (test code = ALKP) IUnit/L 45-117 [id number] 05:36:00* Test Item Value Reference Range Interpretation Comments GLUBED (test code = GLUBED) 183 mg/dL 74-106 H Performed by certified matrix bath operator at [facility] CBC W/AUTO [id number] 05:05:00* Test Item Value Reference Range Interpretation Comments WHITE BLOOD CELL (test code = WBC) 5.3 K/mm3 4.5-12.5 N RED BLOOD CELL (test code = RBC) 3.30 mill/mm3 3.7-5.2 L HEMOGLOBIN (test code = HGB) 9.5 gram/dL 11.5-15.5 L HEMATOCRIT (test code = HCT) 30.5 % 36.0-46.0 L MEAN CELL VOLUME (test code = MCV) 92.4 fL 80-98 N MEAN CELL HGB (test code = MCH) 28.8 picogram 27.0-33.0 N MEAN CELL HGB CONCETRATION (test code = MCHC) 31.1 gram/dL 33.0-36. 0 L RED CELL DISTRIBUTION WIDTH (test code = RDW) 18.5 % 11.6-16. 2 H RED CELL DISTRIBUTION WIDTH SD (test code = RDW-SD) 62.4 fL 37 .0-51.0 H PLATELET COUNT (test code = PLT) 129 K/mm3 150-450 L MEAN PLATELET VOLUME (test code = MPV) 12.8 fL 6.7-11.0 H NEUTROPHIL % (test code = NT%) 68.8 % 39.0-69.0 N IMMATURE GRANULOCYTE % (test code = IG%) 0.6 % 0.0-5.0 N LYMPHOCYTE % (test code = LY%) 19.4 % 25.0-55.0 L MONOCYTE % (test code = MO%) 8.5 % 0.0-10.0 N EOSINOPHIL % (test code = EO%) 2.1 % 0.0-5.0 N BASOPHIL % (test code = BA%) 0.6 % 0.0-1.0 N NUCLEATED RBC % (test code = NRBC%) 0.0 % 0-0 N NEUTROPHIL # (test code = NT#) 3.63 K/mm3 1.8-7.7 N IMMATURE GRANULOCYTE # (test code = IG#) 0.03 x10 3/uL 0-0.03 N LYMPHOCYTE # (test code = LY#) 1.02 K/mm3 1.0-5.0 N MONOCYTE # (test code = MO#) 0.45 K/mm3 0-0.8 N EOSINOPHIL # (test code = EO#) 0.11 K/mm3 0.0-0.5 N BASOPHIL # (test code = BA#) 0.03 K/mm3 0.0-0.2 N NUCLEATED RBC # (test code = NRBC#) 0.00 K/mm3 0.0-0.1 N [id number] 20:25:00* Test Item Value Reference Range Interpretation Comments GLUBED (test code = GLUBED) 172 mg/dL 74-106 H Performed by certified matrix bath operator at [facility] [id number] 14:23:00 RUN DATE: 10/23/18 [facility] PAGE 1 RUN TIME: 1424 Specimen Inqui ry RUN USER: INTERFACE PATIENT: VIVEK FINNEY ACCT #: [id number] LOC: [facility] U #: [id number] AGE/SX: 78/F ROOM: [facility] RE10/22/18[facility] DR: Ravin Toledo MD : 39 BED: A DIS: STATUS: ADM IN TLOC: SPEC #: [id number] RECD: 10/22/18 STATUS: BRYN LAMAS #: [id number] WILIAM: 10/22/18- SUBM DR: Mukesh Hammond MD ENTERED: 10/22/18 SP TYPE: STOMACH OTHR DR: Harsh Pineda MD, Gerardo MD Khokhar,Radha Sheldon MDORDERED: GROSS COPIES TO: Mukesh Hammond MD [address] [facility] [place] [address] Harsh Gan MD [address] [place] [address] Asa Ching MD [address] [place] [address] Radha Juarez MD [address] [place] [address] PROCEDURES: GROSS (10/23/18-133) TISSUES: 1. DUODENUM, NOS - BX 2. GASTRIC CORPUS - BX CLINICAL HISTORY COLLECTION DATE: 10/22/18 AP FINAL DIAGNOSIS Duodenum, biopsy: FRAGMENTS OF SMALL BOWEL MUCOSA WITH UNREMARKABLE VILL OUS ARCHITECTURE AND MILD NON-SPECIFIC CHRONIC INFLAMMATION IN LAMINA P ROPRIA NO INTRAEPITHELIAL INFLAMMATION PRESENT NO ACUTE INFLAMMATO RY INFILTRATE PRESENT CONTINUED ON NEXT PAGE * * RUN DATE: 10/23/18 [facility] PAGE 2 RUN TIME: 4 Specimen Inq uiry RUN USER: INTERFACE SPEC #: [id number] PATIENT: EMERSON FINNEY #[id number] (Continued) FINAL DIAGNOS IS (Continued) NEGATIVE FOR MALIGNANCY Gastric tissue, b iopsy: PATCHY MILD REACTIVE/CHEMICAL GASTROPATHY CHANGE MILD NON-S PECIFIC CHRONIC INFLAMMATION PRESENT NO ACUTE INFLAMMATORY INFILTRATE PRE SENT NEGATIVE FOR INTESTINAL METAPLASIA NEGATIVE FOR HELICOBACTER ORGANISMS NEGATIVE FOR MALIGNANCY RRB/sm D [id number], [id number] MACROSCOPIC The first specimen is received in formalin, labeled with the patient's name, identified as "duodenum", and consists of multiple penny bi opsy tissue measuring 1.0 x 0.3 x 0.1 cm in aggregate, submitted as (1). The second specimen is received in formalin, labeled with the patient's name, identified as "gastric bx", and consists of multiple penny biopsy tissue measu ring 1.2 x 0.4 x 0.1 cm in aggregate, submitted as (2) for H E and Giemsa gloria gaona. GROSS PERFORMED AT [facility] [address] [place], [place] [address] (p)[phone] MICROSCOPIC All of the stains, including any controls performed, stain appropriately. MICROSCOPIC PERFORMED AT [facility] [address] [place] [address] (p)[phone] PERFORMING SITE Diagnosis performed at: [facility] [address] [place] [address] CONTINUED ON NEXT PAGE RUN DATE: 10/23/18 [facility] PAGE 3 RUN TIME: 1424 Spec imen Inquiry RUN USER: INTERFACE SPEC #: [id number] PATIENT: VIVEK ELI #[id number] (Continued) PERFO RMING SITE (Continued) [phone] Signed SIGNATU RE ON FILE Sanjeev Kirkland MD 10/23/18 1423 - * * END OF REPORT [id number] 13:48:00* Test Item Value Reference Range Interpretation Comments GLUBED (test code = GLUBED) 148 mg/dL 74-106 H Performed by certified matrix bath operator at [facility] [id number] 05:56:00* Test Item Value Reference Range Interpretation Comments GLUBED (test code = GLUBED) 158 mg/dL 74-106 H Performed by certified matrix bath operator at [facility] [id number] 05:56:00* Test Item Value Reference Range Interpretation Comments GLUBED (test code = GLUBED) 160 mg/dL 74-106 H Performed by certified matrix bath operator at [facility] BASIC METABOLIC [id number] 05:28:00* Test Item Value Reference Range Interpretation Comments SODIUM (test code = NA) 132 mmol/L 136-145 L POTASSIUM (test code = K) 4.9 mmol/L 3.5-5.1 N CHLORIDE (test code = CL) 97.0 mmol/L 98-107 L CARBON DIOXIDE (test code = CO2) 26.0 mmol/L 21-32 N ANION GAP (test code = GAP) 13.9 10-20 N GLUCOSE (test code = GLU) 163 mg/dL 74-106 H BLOOD UREA NITROGEN (test code = BUN) 36 mg/dL 7-18 H GLOMERULAR FILTRATION RATE (test code = GFR) 9 mL/min >=60 Estimated GFR by using Modified MDRD formula.Chronic kidney disease is defined as either kidney damageor GFR <60 mL/min/1.73 m2 for >3 months. CREATININE (test code = CREAT) 4.60 mg/dL 0.55-1.02 H Note change in reference range due to change in reagent. BUN/CREATININE RATIO (test code = BUN/CREA) 7.9 10-20 L CALCIUM (test code = CA) 7.5 mg/dL 8.5-10.1 L [id number] 20:33:00* Test Item Value Reference Range Interpretation Comments GLUBED (test code = GLUBED) 128 mg/dL 74-106 H Performed by certified matrix bath operator at [facility] [id number] 16:47:00* Test Item Value Reference Range Interpretation Comments GLUBED (test code = GLUBED) 135 mg/dL 74-106 H Performed by certified matrix bath operator at [facility] [id number] 12:21:00* Test Item Value Reference Range Interpretation Comments GLUBED (test code = GLUBED) 80 mg/dL 74-106 N Performed by certified matrix bath operator at [facility] [id number] 12:19:00* Test Item Value Reference Range Interpretation Comments GLYCOSYLATED HEMOGLOBIN (HA1C) (test code = GLYHGB) < 3.5 % HbA1 4. 8-6.0 L ESTIMATED AVERAGE GLUCOSE (test code = EAG) 54 MG/DL [id number] 10:27:00* Test Item Value Reference Range Interpretation Comments GLUBED (test code = GLUBED) 135 mg/dL 74-106 H Performed by certified matrix bath operator at [facility] [id number] 10:26:00* Test Item Value Reference Range Interpretation Comments GLUBED (test code = GLUBED) 274 mg/dL 74-106 H Performed by certified matrix bath operator at [facility] [id number] 10:26:00* Test Item Value Reference Range Interpretation Comments GLUBED (test code = GLUBED) 138 mg/dL 74-106 H Performed by certified matrix bath operator at [facility] [id number] 10:26:00* Test Item Value Reference Range Interpretation Comments GLUBED (test code = GLUBED) 67 mg/dL 74-106 L Performed by certified matrix bath operator at [facility] [id number] 10:25:00* Test Item Value Reference Range Interpretation Comments GLUBED (test code = GLUBED) 110 mg/dL 74-106 H Performed by certified matrix bath operator at [facility] [id number] 10:24:00* Test Item Value Reference Range Interpretation Comments GLUBED (test code = GLUBED) 123 mg/dL 74-106 H Performed by certified matrix bath operator at [facility] [id number] 10:24:00* Test Item Value Reference Range Interpretation Comments GLUBED (test code = GLUBED) 32 mg/dL 74-106 LL Test performed as P.O.C. by nursing staff.[facility] [id number] 10:23:00* Test Item Value Reference Range Interpretation Comments GLUBED (test code = GLUBED) 128 mg/dL 74-106 H Performed by certified matrix bath operator at [facility] [id number] 10:23:00* Test Item Value Reference Range Interpretation Comments GLUBED (test code = GLUBED) 55 mg/dL 74-106 L Performed by certified matrix bath operator at [facility] [id number] 10:22:00* Test Item Value Reference Range Interpretation Comments GLUBED (test code = GLUBED) 152 mg/dL 74-106 H Performed by certified matrix bath operator at [facility] [id number] 10:22:00* Test Item Value Reference Range Interpretation Comments GLUBED (test code = GLUBED) 33 mg/dL 74-106 LL Test performed as P.O.C. by nursing staff.[facility] [id number] 10:22:00* Test Item Value Reference Range Interpretation Comments GLUBED (test code = GLUBED) 118 mg/dL 74-106 H Performed by certified matrix bath operator at [facility] [id number] 10:21:00* Test Item Value Reference Range Interpretation Comments GLUBED (test code = GLUBED) 86 mg/dL 74-106 N Performed by certified matrix bath operator at [facility] [id number] 10:20:00* Test Item Value Reference Range Interpretation Comments GLUBED (test code = GLUBED) 110 mg/dL 74-106 H Performed by certified matrix bath operator at [facility] [id number] 10:19:00* Test Item Value Reference Range Interpretation Comments GLUBED (test code = GLUBED) 96 mg/dL 74-106 N Performed by certified matrix bath operator at [facility] [id number] 10:12:00* Test Item Value Reference Range Interpretation Comments GLUBED (test code = GLUBED) 183 mg/dL 74-106 H Performed by certified matrix bath operator at [facility] [id number] 10:12:00* Test Item Value Reference Range Interpretation Comments GLUBED (test code = GLUBED) 148 mg/dL 74-106 H Performed by certified matrix bath operator at [facility] COMPREHENSIVE METABOLIC [id number] 04:41:00* Test Item Value Reference Range Interpretation Comments SODIUM (test code = NA) 131 mmol/L 136-145 L POTASSIUM (test code = K) 4.9 mmol/L 3.5-5.1 N CHLORIDE (test code = CL) 95.0 mmol/L 98-107 L CARBON DIOXIDE (test code = CO2) 29.0 mmol/L 21-32 N ANION GAP (test code = GAP) 11.9 10-20 N GLUCOSE (test code = GLU) 39 mg/dL 74-106 LL Re sults called to [id number] by [email or web address] 10/22/18 0439Critical results verified and read back by Nurse?Y BLOOD UREA NITROGEN (test code = BUN) 27 mg/dL 7-18 H GLOMERULAR FILTRATION RATE (test code = GFR) 12 mL/min >=60 Estimated GFR by using Modified MDRD formula.Chronic kidney disease is defined as either kidney damageor GFR <60 mL/min/1.73 m2 for >3 months. CREATININE (test code = CREAT) 3.70 mg/dL 0.55-1.02 H Note change in reference range due to change in reagent. BUN/CREATININE RATIO (test code = BUN/CREA) 7.3 10-20 L TOTAL PROTEIN (test code = PROT) 5.8 gram/dL 6.4-8.2 L ALBUMIN (test code = ALB) 2.7 g/dL 3.4-5.0 L GLOBULIN (test code = GLOB) 3.1 gram/dL 2.7-4.2 N ALBUMIN/GLOBULIN RATIO (test code = A/G) 0.9 0.75-1.50 N CALCIUM (test code = CA) 7.9 mg/dL 8.5-10.1 L BILIRUBIN TOTAL (test code = BILT) 0.50 mg/dL 0.0-1.0 N SGOT/AST (test code = AST) 17 IUnit/L 15-37 N SGPT/ALT (test code = ALT) 9 IUnit/L 12-78 L ALKALINE PHOSPHATASE TOTAL (test code = ALKP) 78 IUnit/L 45-117 N Note change in reference range due to change in reagent. COMPREHENSIVE METABOLIC [id number] 04:19:00* Test Item Value Reference Range Interpretation Comments SODIUM (test code = NA) 131 mmol/L 136-145 L POTASSIUM (test code = K) 4.9 mmol/L 3.5-5.1 N CHLORIDE (test code = CL) 95.0 mmol/L 98-107 L CARBON DIOXIDE (test code = CO2) mmol/L 21-32 ANION GAP (test code = GAP) 10-20 GLUCOSE (test code = GLU) mg/dL 74-106 BLOOD UREA NITROGEN (test code = BUN) mg/dL 7-18 GLOMERULAR FILTRATION RATE (test code = GFR) mL/min >=60 CREATININE (test code = CREAT) mg/dL 0.55-1.02 BUN/CREATININE RATIO (test code = BUN/CREA) 10-20 TOTAL PROTEIN (test code = PROT) gram/dL 6.4-8.2 ALBUMIN (test code = ALB) g/dL 3.4-5.0 GLOBULIN (test code = GLOB) gram/dL 2.7-4.2 ALBUMIN/GLOBULIN RATIO (test code = A/G) 0.75-1.50 CALCIUM (test code = CA) mg/dL 8.5-10.1 BILIRUBIN TOTAL (test code = BILT) mg/dL 0.0-1.0 SGOT/AST (test code = AST) IUnit/L 15-37 SGPT/ALT (test code = ALT) IUnit/L 12-78 ALKALINE PHOSPHATASE TOTAL (test code = ALKP) IUnit/L 45-117 CBC W/AUTO [id number] 04:10:00* Test Item Value Reference Range Interpretation Comments WHITE BLOOD CELL (test code = WBC) 4.6 K/mm3 4.5-12.5 N RED BLOOD CELL (test code = RBC) 3.19 mill/mm3 3.7-5.2 L HEMOGLOBIN (test code = HGB) 9.0 gram/dL 11.5-15.5 L HEMATOCRIT (test code = HCT) 29.0 % 36.0-46.0 L MEAN CELL VOLUME (test code = MCV) 90.9 fL 80-98 N MEAN CELL HGB (test code = MCH) 28.2 picogram 27.0-33.0 N MEAN CELL HGB CONCETRATION (test code = MCHC) 31.0 gram/dL 33.0-36. 0 L RED CELL DISTRIBUTION WIDTH (test code = RDW) 18.6 % 11.6-16. 2 H RED CELL DISTRIBUTION WIDTH SD (test code = RDW-SD) 61.5 fL 37 .0-51.0 H PLATELET COUNT (test code = PLT) 136 K/mm3 150-450 L MEAN PLATELET VOLUME (test code = MPV) 11.9 fL 6.7-11.0 H NEUTROPHIL % (test code = NT%) 50.5 % 39.0-69.0 N IMMATURE GRANULOCYTE % (test code = IG%) 0.7 % 0.0-5.0 N LYMPHOCYTE % (test code = LY%) 32.1 % 25.0-55.0 N MONOCYTE % (test code = MO%) 12.4 % 0.0-10.0 H EOSINOPHIL % (test code = EO%) 3.9 % 0.0-5.0 N BASOPHIL % (test code = BA%) 0.4 % 0.0-1.0 N NUCLEATED RBC % (test code = NRBC%) 0.0 % 0-0 N NEUTROPHIL # (test code = NT#) 2.31 K/mm3 1.8-7.7 N IMMATURE GRANULOCYTE # (test code = IG#) 0.03 x10 3/uL 0-0.03 N LYMPHOCYTE # (test code = LY#) 1.47 K/mm3 1.0-5.0 N MONOCYTE # (test code = MO#) 0.57 K/mm3 0-0.8 N EOSINOPHIL # (test code = EO#) 0.18 K/mm3 0.0-0.5 N BASOPHIL # (test code = BA#) 0.02 K/mm3 0.0-0.2 N NUCLEATED RBC # (test code = NRBC#) 0.00 K/mm3 0.0-0.1 N MANUAL DIFF REQUIRED (test code = MDIFF) NO [id number] 16:52:00* Test Item Value Reference Range Interpretation Comments TROPONIN-I (test code = TROPI) 0.065 ng/mL 0-0.045 HH PREVIOUS RESULT CALLED. @Repeat Result: 0.060 [id number] 14:59:00* Test Item Value Reference Range Interpretation Comments TROPONIN-I (test code = TROPI) 0.058 ng/mL 0-0.045 HH Previous result called.@Repeat Result: 0.057 COMPREHENSIVE METABOLIC [id number] 06:33:00* Test Item Value Reference Range Interpretation Comments SODIUM (test code = NA) 140 mmol/L 136-145 RESU LT VERIFIED BY REPEAT ANALYSIS POTASSIUM (test code = K) 4.6 mmol/L 3.5-5.1 N CHLORIDE (test code = CL) 100.0 mmol/L 98-107 N CARBON DIOXIDE (test code = CO2) 28.0 mmol/L 21-32 N ANION GAP (test code = GAP) 16.6 10-20 N GLUCOSE (test code = GLU) 93 mg/dL 74-106 N BLOOD UREA NITROGEN (test code = BUN) 40 mg/dL 7-18 H RESULT VERIFIED BY REPEAT ANALYSIS GLOMERULAR FILTRATION RATE (test code = GFR) 10 mL/min >=60 Estimated GFR by using Modified MDRD formula.Chronic kidney disease is defined as either kidney damageor GFR <60 mL/min/1.73 m2 for >3 months. CREATININE (test code = CREAT) 4.10 mg/dL 0.55-1.02 H Note change in reference range due to change in reagent. BUN/CREATININE RATIO (test code = BUN/CREA) 9.8 10-20 L TOTAL PROTEIN (test code = PROT) 6.1 gram/dL 6.4-8.2 L ALBUMIN (test code = ALB) 2.9 g/dL 3.4-5.0 L GLOBULIN (test code = GLOB) 3.2 gram/dL 2.7-4.2 N ALBUMIN/GLOBULIN RATIO (test code = A/G) 0.9 0.75-1.50 N CALCIUM (test code = CA) 8.6 mg/dL 8.5-10.1 N BILIRUBIN TOTAL (test code = BILT) 0.60 mg/dL 0.0-1.0 N SGOT/AST (test code = AST) 12 IUnit/L 15-37 L SGPT/ALT (test code = ALT) 10 IUnit/L 12-78 L ALKALINE PHOSPHATASE TOTAL (test code = ALKP) 79 IUnit/L 45-117 N Note change in reference range due to change in reagent. CBC W/AUTO [id number] 06:10:00* Test Item Value Reference Range Interpretation Comments WHITE BLOOD CELL (test code = WBC) 8.0 K/mm3 4.5-12.5 N RED BLOOD CELL (test code = RBC) 3.72 mill/mm3 3.7-5.2 N HEMOGLOBIN (test code = HGB) 10.5 gram/dL 11.5-15.5 L RESULT VERIFIED BY REPEAT ANALYSIS HEMATOCRIT (test code = HCT) 33.1 % 36.0-46.0 L MEAN CELL VOLUME (test code = MCV) 89.0 fL 80-98 N MEAN CELL HGB (test code = MCH) 28.2 picogram 27.0-33.0 N MEAN CELL HGB CONCETRATION (test code = MCHC) 31.7 gram/dL 33.0-36. 0 L RED CELL DISTRIBUTION WIDTH (test code = RDW) 18.7 % 11.6-16. 2 H RED CELL DISTRIBUTION WIDTH SD (test code = RDW-SD) 61.1 fL 37 .0-51.0 H PLATELET COUNT (test code = PLT) 184 K/mm3 150-450 RESULT VERIFIED BY REPEAT ANALYSIS MEAN PLATELET VOLUME (test code = MPV) 11.5 fL 6.7-11.0 H NEUTROPHIL % (test code = NT%) 64.8 % 39.0-69.0 N IMMATURE GRANULOCYTE % (test code = IG%) 0.4 % 0.0-5.0 N LYMPHOCYTE % (test code = LY%) 18.6 % 25.0-55.0 L MONOCYTE % (test code = MO%) 15.0 % 0.0-10.0 H EOSINOPHIL % (test code = EO%) 0.6 % 0.0-5.0 N BASOPHIL % (test code = BA%) 0.6 % 0.0-1.0 N NUCLEATED RBC % (test code = NRBC%) 0.0 % 0-0 N NEUTROPHIL # (test code = NT#) 5.18 K/mm3 1.8-7.7 N IMMATURE GRANULOCYTE # (test code = IG#) 0.03 x10 3/uL 0-0.03 N LYMPHOCYTE # (test code = LY#) 1.49 K/mm3 1.0-5.0 N MONOCYTE # (test code = MO#) 1.20 K/mm3 0-0.8 H EOSINOPHIL # (test code = EO#) 0.05 K/mm3 0.0-0.5 N BASOPHIL # (test code = BA#) 0.05 K/mm3 0.0-0.2 N NUCLEATED RBC # (test code = NRBC#) 0.00 K/mm3 0.0-0.1 N MANUAL DIFF REQUIRED (test code = MDIFF) NO [id number] 00:42:00* Test Item Value Reference Range Interpretation Comments TROPONIN-I (test code = TROPI) 0.101 ng/mL 0-0.045 RESULT VERIFIED BY REPEAT ANALYSIS COMMENTS TO HARNESS BUILDER: COLLECT 3 HOURS AFTER PREVIOUS [id number] 21:46:00* Test Item Value Reference Range Interpretation Comments TROPONIN-I (test code = TROPI) 0.126 ng/mL 0-0.045 HH Results called to NURSE DELONTE/[id number] by [email or web address] 10/19/18 2145Critical results verified and read back by Nurse? Y COMMENTS TO HARNESS BUILDER: COLLECT 3 HOURS AFTER PREVIOUS SAMPLE- CT ABD PELVIS W/O [id number] 14:21:00 Name: VIVEK FINNEY [facility] : 1940 Age/S: 78 / F [address] [facility] Unit #: [id number] Loc: [place] [address] Phys: Kingsley Wood MD Acct: [id number] Dis Date: Status: REG ER PHONE #: [phone] Exam Date: 10/19/2018 [facility] FAX #: [phone] Reason: aabd pain EXAMS: CPT CODE: [id number] CT ABD PELVIS W/O CONT 88243 REASON FOR EXAM: aabd pain EXAM ORDER DATE: 10/19/2018 1:06 PM Ordering M.D.: Kingsley Wood MD PROCEDURE: - CT ABD PELVIS W/O CONT noncontrast axial CT images were acquired through the abdomen/pelvis at 5 mm intervals. Sagittal and coronal reformatted images were generated. Automated exposure control was utilized for this reduction. Phases of contrast: None COMPARISON: CT abdomen and pelvis October 09, 2018 FINDINGS: Absence of IV contrast limits detection for soft tissue pathology. Visualized thorax: Previously seen pleural effusions and groundglass airspace opacities have resolved. Cardiomegaly with coronary atherosclerosis is redemonstrated. Hepatobiliary system: Prior cholecystectomy. Liver is grossly normal. Pancreas: Atrophic Spleen: Grossly normal Adrenal glands: Grossly normal Genitourinary system: Kidneys are atrophic, similar to prior exam. Multiple calcified uterine fibroids are present. Bladder is distended. Gastrointestinal tract and appendix: Hiatal hernia. No abnormal luminal distention. There is oral contrast in the distal colon. Abdominal vascular structures: Extensive atherosclerotic disease of the abdominal aorta and iliac and mesenteric arteries. Peritoneum and retroperitoneum: No free air. No large fluid collection although small fluid collections would be difficult to exclude in the absence of IV contrast and with the relative paucity of mesenteric fat. No omental or mesenteric masses. No abnormal lymph nodes. PAGE 1 Signed Report (CONTINUED) Name: VIVEK FINNEY [facility] : 1940 Age/S: 78 / F [address] [facility] Unit #: [id number] Loc: [place] [address] Phys: Kingsley Wood MD Acct: [id number] Dis Date: Status: REG ER PHONE #: [phone] Exam Date: 10/19/2018 1344 FAX #: [phone] Reason: aabd pain EXAMS: CPT CODE: [id number] CT ABD PELVIS W/O CONT 48047 <Continued> Musculoskeletal structures and abdominal wall: Infraumbilical ventral hernia is redemonstrated. The hernia is unchanged in size from the previous exam with a neck measuring approximately 4.4 cm. Degenerative changes are once again seen throughout the visualized spine. Patient has anasarca. Postsurgical changes of left femoral fracture repair are redemonstrated. There is a collection in the soft tissues adjacent to the surgical site which likely represents a hematoma. This hematoma is grossly unchanged in size and measures up to 8.5 x 7.1 cm cross-sectionally. This hematoma is incompletely evaluated as exam. IMPRESSION: Interval resolution of pulmonary airspace opacities and pleural effusions. No acute intra- abdominal process. Postsurgical changes of left femoral fracture repair with grossly stable size of hematoma. Fat-containing ventral hernias unchanged. at 1421 Reported and signed by: Navin Butt MD CC: Kingsley Wood MD; Harsh Gan Technologist:Alexander Mccullough RT(R),(MR),(CT) CTDI: DLP: Trnscb Date/Time: 10/19/2018 (1767) [email or web address] Orig Print D/T: S: 10/19/2018 (2095) PAGE 2 Signed Report BASIC METABOLIC [id number] 14:05:00* Test Item Value Reference Range Interpretation Comments SODIUM (test code = NA) 135 mmol/L 136-145 L POTASSIUM (test code = K) 4.6 mmol/L 3.5-5.1 N S pecimen 1+ Hemolysed.Some results MAY NOT be accurate due to hemolysis. CHLORIDE (test code = CL) 96.0 mmol/L 98-107 L CARBON DIOXIDE (test code = CO2) 27.0 mmol/L 21-32 N ANION GAP (test code = GAP) 16.6 10-20 N GLUCOSE (test code = GLU) 188 mg/dL 74-106 H BLOOD UREA NITROGEN (test code = BUN) 30 mg/dL 7-18 H GLOMERULAR FILTRATION RATE (test code = GFR) 13 mL/min >=60 Estimated GFR by using Modified MDRD formula.Chronic kidney disease is defined as either kidney damageor GFR <60 mL/min/1.73 m2 for >3 months. CREATININE (test code = CREAT) 3.40 mg/dL 0.55-1.02 H Note change in reference range due to change in reagent. BUN/CREATININE RATIO (test code = BUN/CREA) 8.8 10-20 L CALCIUM (test code = CA) 9.1 mg/dL 8.5-10.1 N HEPATIC FUNCTION [id number] 14:05:00* Test Item Value Reference Range Interpretation Comments TOTAL PROTEIN (test code = PROT) 7.7 gram/dL 6.4-8.2 N ALBUMIN (test code = ALB) 3.7 g/dL 3.4-5.0 N GLOBULIN (test code = GLOB) 4.0 gram/dL 2.7-4.2 N ALBUMIN/GLOBULIN RATIO (test code = A/G) 0.9 0.75-1.50 N BILIRUBIN TOTAL (test code = BILT) 0.70 mg/dL 0.0-1.0 N BILIRUBIN DIRECT (test code = BILD) 0.24 mg/dL 0.0-0.20 H SGOT/AST (test code = AST) 25 IUnit/L 15-37 N SGPT/ALT (test code = ALT) 12 IUnit/L 12-78 N ALKALINE PHOSPHATASE TOTAL (test code = ALKP) 115 IUnit/L 45-117 N Note change in reference range due to change in reagent. [id number] 14:05:00* Test Item Value Reference Range Interpretation Comments LIPASE (test code = LIP) 117 U/L 73.0-393.0 N [id number] 14:05:00* Test Item Value Reference Range Interpretation Comments TROPONIN-I (test code = TROPI) 0.090 ng/mL 0-0.045 HH BASIC METABOLIC [id number] 13:53:00* Test Item Value Reference Range Interpretation Comments SODIUM (test code = NA) 135 mmol/L 136-145 L POTASSIUM (test code = K) 4.6 mmol/L 3.5-5.1 N S pecimen 1+ Hemolysed.Some results MAY NOT be accurate due to hemolysis. CHLORIDE (test code = CL) 96.0 mmol/L 98-107 L CARBON DIOXIDE (test code = CO2) mmol/L 21-32 ANION GAP (test code = GAP) 10-20 GLUCOSE (test code = GLU) mg/dL 74-106 BLOOD UREA NITROGEN (test code = BUN) mg/dL 7-18 GLOMERULAR FILTRATION RATE (test code = GFR) mL/min >=60 CREATININE (test code = CREAT) mg/dL 0.55-1.02 BUN/CREATININE RATIO (test code = BUN/CREA) 10-20 CALCIUM (test code = CA) mg/dL 8.5-10.1 HEPATIC FUNCTION [id number] 13:53:00* Test Item Value Reference Range Interpretation Comments TOTAL PROTEIN (test code = PROT) gram/dL 6.4-8.2 ALBUMIN (test code = ALB) g/dL 3.4-5.0 GLOBULIN (test code = GLOB) gram/dL 2.7-4.2 ALBUMIN/GLOBULIN RATIO (test code = A/G) 0.75-1.50 BILIRUBIN TOTAL (test code = BILT) mg/dL 0.0-1.0 BILIRUBIN DIRECT (test code = BILD) mg/dL 0.0-0.20 SGOT/AST (test code = AST) IUnit/L 15-37 SGPT/ALT (test code = ALT) IUnit/L 12-78 ALKALINE PHOSPHATASE TOTAL (test code = ALKP) IUnit/L 45-117 [id number] 13:53:00* Test Item Value Reference Range Interpretation Comments LIPASE (test code = LIP) U/L 73.0-393.0 [id number] 13:53:00* Test Item Value Reference Range Interpretation Comments TROPONIN-I (test code = TROPI) ng/mL 0-0.045 CBC W/O [id number] 13:39:00* Test Item Value Reference Range Interpretation Comments WHITE BLOOD CELL (test code = WBC) 10.6 K/mm3 4.5-12.5 N RED BLOOD CELL (test code = RBC) 4.43 mill/mm3 3.7-5.2 N HEMOGLOBIN (test code = HGB) 12.5 gram/dL 11.5-15.5 N HEMATOCRIT (test code = HCT) 38.5 % 36.0-46.0 N MEAN CELL VOLUME (test code = MCV) 86.9 fL 80-98 N MEAN CELL HGB (test code = MCH) 28.2 picogram 27.0-33.0 N MEAN CELL HGB CONCETRATION (test code = MCHC) 32.5 gram/dL 33.0-36. 0 L RED CELL DISTRIBUTION WIDTH (test code = RDW) 18.6 % 11.6-16. 2 H PLATELET COUNT (test code = PLT) 247 K/mm3 150-450 N MEAN PLATELET VOLUME (test code = MPV) 10.9 fL 6.7-11.0 N CBC W/O [id number] 13:35:00* Test Item Value Reference Range Interpretation Comments WHITE BLOOD CELL (test code = WBC) K/mm3 4.5-12.5 RED BLOOD CELL (test code = RBC) mill/mm3 3.7-5.2 HEMOGLOBIN (test code = HGB) 12.5 gram/dL 11.5-15.5 N HEMATOCRIT (test code = HCT) 38.5 % 36.0-46.0 N MEAN CELL VOLUME (test code = MCV) fL 80-98 MEAN CELL HGB (test code = MCH) picogram 27.0-33.0 MEAN CELL HGB CONCETRATION (test code = MCHC) gram/dL 33.0-36. 0 RED CELL DISTRIBUTION WIDTH (test code = RDW) % 11.6-16. 2 PLATELET COUNT (test code = PLT) K/mm3 150-450 MEAN PLATELET VOLUME (test code = MPV) fL 6.7-11.0 [id number] 09:04:00* Test Item Value Reference Range Interpretation Comments GLUBED (test code = GLUBED) 112 mg/dL 74-106 H Performed by certified matrix bath operator at [facility] [id number] 20:35:00* Test Item Value Reference Range Interpretation Comments GLUBED (test code = GLUBED) 134 mg/dL 74-106 H Performed by certified matrix bath operator at [facility] [id number] 20:06:00* Test Item Value Reference Range Interpretation Comments GLUBED (test code = GLUBED) 68 mg/dL 74-106 L Performed by certified matrix bath operator at [facility] [id number] 16:18:00* Test Item Value Reference Range Interpretation Comments GLUBED (test code = GLUBED) 210 mg/dL 74-106 H Performed by certified matrix bath operator at [facility] BASIC METABOLIC [id number] 13:53:00* Test Item Value Reference Range Interpretation Comments SODIUM (test code = NA) 131 mmol/L 136-145 L POTASSIUM (test code = K) 4.3 mmol/L 3.5-5.1 N CHLORIDE (test code = CL) 95.0 mmol/L 98-107 L CARBON DIOXIDE (test code = CO2) 26.0 mmol/L 21-32 N ANION GAP (test code = GAP) 14.3 10-20 N GLUCOSE (test code = GLU) 166 mg/dL 74-106 H BLOOD UREA NITROGEN (test code = BUN) 28 mg/dL 7-18 H GLOMERULAR FILTRATION RATE (test code = GFR) 16 mL/min >=60 Estimated GFR by using Modified MDRD formula.Chronic kidney disease is defined as either kidney damageor GFR <60 mL/min/1.73 m2 for >3 months. CREATININE (test code = CREAT) 2.80 mg/dL 0.55-1.02 H Note change in reference range due to change in reagent. BUN/CREATININE RATIO (test code = BUN/CREA) 10.1 10-20 N CALCIUM (test code = CA) 8.5 mg/dL 8.5-10.1 N [id number] 13:53:00* Test Item Value Reference Range Interpretation Comments ALBUMIN (test code = ALB) 2.9 g/dL 3.4-5.0 L BASIC METABOLIC [id number] 13:48:00* Test Item Value Reference Range Interpretation Comments SODIUM (test code = NA) 131 mmol/L 136-145 L POTASSIUM (test code = K) 4.3 mmol/L 3.5-5.1 N CHLORIDE (test code = CL) 95.0 mmol/L 98-107 L CARBON DIOXIDE (test code = CO2) mmol/L 21-32 ANION GAP (test code = GAP) 10-20 GLUCOSE (test code = GLU) mg/dL 74-106 BLOOD UREA NITROGEN (test code = BUN) mg/dL 7-18 GLOMERULAR FILTRATION RATE (test code = GFR) mL/min >=60 CREATININE (test code = CREAT) mg/dL 0.55-1.02 BUN/CREATININE RATIO (test code = BUN/CREA) 10-20 CALCIUM (test code = CA) mg/dL 8.5-10.1 [id number] 13:48:00* Test Item Value Reference Range Interpretation Comments ALBUMIN (test code = ALB) g/dL 3.4-5.0 [id number] 12:10:00* Test Item Value Reference Range Interpretation Comments GLUBED (test code = GLUBED) 139 mg/dL 74-106 H Performed by certified matrix bath operator at [facility] AB HEPATITIS B [id number] 04:07:00* Test Item Value Reference Range Interpretation Comments AB HEPATITIS B SURFACE (test code = HBSAB) Reactive () Non Reactive: Inconsistent with immunity, less than 10 mIU/mL Reactive: Consistent with immunity, greater than 9.9 mIU/mLPerformed At: [facility] [address] [id number] Kyle L MD Ph:[phone] [id number] 20:01:00* Test Item Value Reference Range Interpretation Comments GLUBED (test code = GLUBED) 130 mg/dL 74-106 H Performed by certified matrix bath operator at [facility] [id number] 18:19:00* Test Item Value Reference Range Interpretation Comments GLUBED (test code = GLUBED) 130 mg/dL 74-106 H Performed by certified matrix bath operator at [facility] [id number] 13:22:00* Test Item Value Reference Range Interpretation Comments GLUBED (test code = GLUBED) 167 mg/dL 74-106 H Performed by certified matrix bath operator at [facility] [id number] 12:24:00* Test Item Value Reference Range Interpretation Comments GLUBED (test code = GLUBED) 165 mg/dL 74-106 H Performed by certified matrix bath operator at [facility] [id number] 09:11:00* Test Item Value Reference Range Interpretation Comments GLUBED (test code = GLUBED) 171 mg/dL 74-106 H Performed by certified matrix bath operator at [facility] COMPREHENSIVE METABOLIC [id number] 06:54:00* Test Item Value Reference Range Interpretation Comments SODIUM (test code = NA) 128 mmol/L 136-145 L POTASSIUM (test code = K) 5.0 mmol/L 3.5-5.1 N CHLORIDE (test code = CL) 92.0 mmol/L 98-107 L CARBON DIOXIDE (test code = CO2) 23.0 mmol/L 21-32 N ANION GAP (test code = GAP) 18.0 10-20 N GLUCOSE (test code = GLU) 108 mg/dL 74-106 H BLOOD UREA NITROGEN (test code = BUN) 68 mg/dL 7-18 H GLOMERULAR FILTRATION RATE (test code = GFR) 10 mL/min >=60 Estimated GFR by using Modified MDRD formula.Chronic kidney disease is defined as either kidney damageor GFR <60 mL/min/1.73 m2 for >3 months. CREATININE (test code = CREAT) 4.40 mg/dL 0.55-1.02 H Note change in reference range due to change in reagent. BUN/CREATININE RATIO (test code = BUN/CREA) 15.3 10-20 N TOTAL PROTEIN (test code = PROT) 6.9 gram/dL 6.4-8.2 N ALBUMIN (test code = ALB) 3.0 g/dL 3.4-5.0 L GLOBULIN (test code = GLOB) 3.9 gram/dL 2.7-4.2 N ALBUMIN/GLOBULIN RATIO (test code = A/G) 0.8 0.75-1.50 N CALCIUM (test code = CA) 8.4 mg/dL 8.5-10.1 L BILIRUBIN TOTAL (test code = BILT) 0.60 mg/dL 0.0-1.0 N SGOT/AST (test code = AST) 11 IUnit/L 15-37 L SGPT/ALT (test code = ALT) 7 IUnit/L 12-78 L ALKALINE PHOSPHATASE TOTAL (test code = ALKP) 107 IUnit/L 45-117 N Note change in reference range due to change in reagent. COMPREHENSIVE METABOLIC [id number] 06:47:00* Test Item Value Reference Range Interpretation Comments SODIUM (test code = NA) 128 mmol/L 136-145 L POTASSIUM (test code = K) 5.0 mmol/L 3.5-5.1 N CHLORIDE (test code = CL) 92.0 mmol/L 98-107 L CARBON DIOXIDE (test code = CO2) mmol/L 21-32 ANION GAP (test code = GAP) 10-20 GLUCOSE (test code = GLU) mg/dL 74-106 BLOOD UREA NITROGEN (test code = BUN) 68 mg/dL 7-18 H GLOMERULAR FILTRATION RATE (test code = GFR) mL/min >=60 CREATININE (test code = CREAT) mg/dL 0.55-1.02 BUN/CREATININE RATIO (test code = BUN/CREA) 10-20 TOTAL PROTEIN (test code = PROT) gram/dL 6.4-8.2 ALBUMIN (test code = ALB) g/dL 3.4-5.0 GLOBULIN (test code = GLOB) gram/dL 2.7-4.2 ALBUMIN/GLOBULIN RATIO (test code = A/G) 0.75-1.50 CALCIUM (test code = CA) 8.4 mg/dL 8.5-10.1 L BILIRUBIN TOTAL (test code = BILT) mg/dL 0.0-1.0 SGOT/AST (test code = AST) IUnit/L 15-37 SGPT/ALT (test code = ALT) IUnit/L 12-78 ALKALINE PHOSPHATASE TOTAL (test code = ALKP) IUnit/L 45-117 CBC W/AUTO [id number] 06:39:00* Test Item Value Reference Range Interpretation Comments WHITE BLOOD CELL (test code = WBC) 7.7 K/mm3 4.5-12.5 N RED BLOOD CELL (test code = RBC) 4.33 mill/mm3 3.7-5.2 N HEMOGLOBIN (test code = HGB) 12.0 gram/dL 11.5-15.5 N HEMATOCRIT (test code = HCT) 38.2 % 36.0-46.0 N MEAN CELL VOLUME (test code = MCV) 88.2 fL 80-98 N MEAN CELL HGB (test code = MCH) 27.7 picogram 27.0-33.0 N MEAN CELL HGB CONCETRATION (test code = MCHC) 31.4 gram/dL 33.0-36. 0 L RED CELL DISTRIBUTION WIDTH (test code = RDW) 18.9 % 11.6-16. 2 H RED CELL DISTRIBUTION WIDTH SD (test code = RDW-SD) 61.0 fL 37 .0-51.0 H PLATELET COUNT (test code = PLT) 224 K/mm3 150-450 N MEAN PLATELET VOLUME (test code = MPV) 11.5 fL 6.7-11.0 H NEUTROPHIL % (test code = NT%) 65.9 % 39.0-69.0 N IMMATURE GRANULOCYTE % (test code = IG%) 0.5 % 0.0-5.0 N LYMPHOCYTE % (test code = LY%) 18.1 % 25.0-55.0 L MONOCYTE % (test code = MO%) 11.0 % 0.0-10.0 H EOSINOPHIL % (test code = EO%) 3.8 % 0.0-5.0 N BASOPHIL % (test code = BA%) 0.7 % 0.0-1.0 N NUCLEATED RBC % (test code = NRBC%) 0.0 % 0-0 N NEUTROPHIL # (test code = NT#) 5.06 K/mm3 1.8-7.7 N IMMATURE GRANULOCYTE # (test code = IG#) 0.04 x10 3/uL 0-0.03 H LYMPHOCYTE # (test code = LY#) 1.39 K/mm3 1.0-5.0 N MONOCYTE # (test code = MO#) 0.84 K/mm3 0-0.8 H EOSINOPHIL # (test code = EO#) 0.29 K/mm3 0.0-0.5 N BASOPHIL # (test code = BA#) 0.05 K/mm3 0.0-0.2 N NUCLEATED RBC # (test code = NRBC#) 0.00 K/mm3 0.0-0.1 N MANUAL DIFF REQUIRED (test code = MDIFF) NO CBC W/AUTO [id number] 06:38:00* Test Item Value Reference Range Interpretation Comments WHITE BLOOD CELL (test code = WBC) K/mm3 4.5-12.5 RED BLOOD CELL (test code = RBC) mill/mm3 3.7-5.2 HEMOGLOBIN (test code = HGB) 12.0 gram/dL 11.5-15.5 N HEMATOCRIT (test code = HCT) 38.2 % 36.0-46.0 N MEAN CELL VOLUME (test code = MCV) fL 80-98 MEAN CELL HGB (test code = MCH) picogram 27.0-33.0 MEAN CELL HGB CONCETRATION (test code = MCHC) gram/dL 33.0-36. 0 RED CELL DISTRIBUTION WIDTH (test code = RDW) % 11.6-16. 2 RED CELL DISTRIBUTION WIDTH SD (test code = RDW-SD) fL 37 .0-51.0 PLATELET COUNT (test code = PLT) K/mm3 150-450 MEAN PLATELET VOLUME (test code = MPV) fL 6.7-11.0 NEUTROPHIL % (test code = NT%) % 39.0-69.0 IMMATURE GRANULOCYTE % (test code = IG%) % 0.0-5.0 LYMPHOCYTE % (test code = LY%) % 25.0-55.0 MONOCYTE % (test code = MO%) % 0.0-10.0 EOSINOPHIL % (test code = EO%) % 0.0-5.0 BASOPHIL % (test code = BA%) % 0.0-1.0 NEUTROPHIL # (test code = NT#) K/mm3 1.8-7.7 LYMPHOCYTE # (test code = LY#) K/mm3 1.0-5.0 MONOCYTE # (test code = MO#) K/mm3 0-0.8 EOSINOPHIL # (test code = EO#) K/mm3 0.0-0.5 BASOPHIL # (test code = BA#) K/mm3 0.0-0.2 [id number] 20:51:00* Test Item Value Reference Range Interpretation Comments GLUBED (test code = GLUBED) 273 mg/dL 74-106 H Performed by certified matrix bath operator at [facility] [id number] 17:04:00* Test Item Value Reference Range Interpretation Comments GLUBED (test code = GLUBED) 75 mg/dL 74-106 N Performed by certified matrix bath operator at [facility] [id number] 12:43:00* Test Item Value Reference Range Interpretation Comments GLUBED (test code = GLUBED) 209 mg/dL 74-106 H [facility]~ [id number] 11:09:00* Test Item Value Reference Range Interpretation Comments GLUBED (test code = GLUBED) 134 mg/dL 74-106 H Performed by certified matrix bath operator at [facility] [id number] 20:33:00* Test Item Value Reference Range Interpretation Comments GLUBED (test code = GLUBED) 100 mg/dL 74-106 N Performed by certified matrix bath operator at [facility] [id number] 17:48:00* Test Item Value Reference Range Interpretation Comments GLUBED (test code = GLUBED) 155 mg/dL 74-106 H Performed by certified matrix bath operator at [facility] [id number] 08:33:00* Test Item Value Reference Range Interpretation Comments GLUBED (test code = GLUBED) 111 mg/dL 74-106 H Performed by certified matrix bath operator at [facility] COMPREHENSIVE METABOLIC [id number] 07:38:00* Test Item Value Reference Range Interpretation Comments SODIUM (test code = NA) 133 mmol/L 136-145 L POTASSIUM (test code = K) 4.6 mmol/L 3.5-5.1 N CHLORIDE (test code = CL) 96.0 mmol/L 98-107 L CARBON DIOXIDE (test code = CO2) 26.0 mmol/L 21-32 N ANION GAP (test code = GAP) 15.6 10-20 N GLUCOSE (test code = GLU) 111 mg/dL 74-106 H BLOOD UREA NITROGEN (test code = BUN) 41 mg/dL 7-18 H GLOMERULAR FILTRATION RATE (test code = GFR) 9 mL/min >=60 Estimated GFR by using Modified MDRD formula.Chronic kidney disease is defined as either kidney damageor GFR <60 mL/min/1.73 m2 for >3 months. CREATININE (test code = CREAT) 4.90 mg/dL 0.55-1.02 H Note change in reference range due to change in reagent. BUN/CREATININE RATIO (test code = BUN/CREA) 8.3 10-20 L TOTAL PROTEIN (test code = PROT) 7.3 gram/dL 6.4-8.2 N ALBUMIN (test code = ALB) 3.1 g/dL 3.4-5.0 L GLOBULIN (test code = GLOB) 4.2 gram/dL 2.7-4.2 N ALBUMIN/GLOBULIN RATIO (test code = A/G) 0.7 0.75-1.50 L CALCIUM (test code = CA) 8.9 mg/dL 8.5-10.1 N BILIRUBIN TOTAL (test code = BILT) 1.00 mg/dL 0.0-1.0 N SGOT/AST (test code = AST) 13 IUnit/L 15-37 L SGPT/ALT (test code = ALT) 8 IUnit/L 12-78 L ALKALINE PHOSPHATASE TOTAL (test code = ALKP) 87 IUnit/L 45-117 N Note change in reference range due to change in reagent. COMPREHENSIVE METABOLIC [id number] 07:29:00* Test Item Value Reference Range Interpretation Comments SODIUM (test code = NA) 133 mmol/L 136-145 L POTASSIUM (test code = K) 4.6 mmol/L 3.5-5.1 N CHLORIDE (test code = CL) 96.0 mmol/L 98-107 L CARBON DIOXIDE (test code = CO2) mmol/L 21-32 ANION GAP (test code = GAP) 10-20 GLUCOSE (test code = GLU) mg/dL 74-106 BLOOD UREA NITROGEN (test code = BUN) mg/dL 7-18 GLOMERULAR FILTRATION RATE (test code = GFR) mL/min >=60 CREATININE (test code = CREAT) mg/dL 0.55-1.02 BUN/CREATININE RATIO (test code = BUN/CREA) 10-20 TOTAL PROTEIN (test code = PROT) gram/dL 6.4-8.2 ALBUMIN (test code = ALB) g/dL 3.4-5.0 GLOBULIN (test code = GLOB) gram/dL 2.7-4.2 ALBUMIN/GLOBULIN RATIO (test code = A/G) 0.75-1.50 CALCIUM (test code = CA) mg/dL 8.5-10.1 BILIRUBIN TOTAL (test code = BILT) mg/dL 0.0-1.0 SGOT/AST (test code = AST) IUnit/L 15-37 SGPT/ALT (test code = ALT) IUnit/L 12-78 ALKALINE PHOSPHATASE TOTAL (test code = ALKP) IUnit/L 45-117 CBC W/AUTO [id number] 07:14:00* Test Item Value Reference Range Interpretation Comments WHITE BLOOD CELL (test code = WBC) 7.2 K/mm3 4.5-12.5 N RED BLOOD CELL (test code = RBC) 4.42 mill/mm3 3.7-5.2 N HEMOGLOBIN (test code = HGB) 12.3 gram/dL 11.5-15.5 N HEMATOCRIT (test code = HCT) 40.5 % 36.0-46.0 N MEAN CELL VOLUME (test code = MCV) 91.6 fL 80-98 N MEAN CELL HGB (test code = MCH) 27.8 picogram 27.0-33.0 N MEAN CELL HGB CONCETRATION (test code = MCHC) 30.4 gram/dL 33.0-36. 0 L RED CELL DISTRIBUTION WIDTH (test code = RDW) 19.8 % 11.6-16. 2 H RED CELL DISTRIBUTION WIDTH SD (test code = RDW-SD) 66.4 fL 37 .0-51.0 H PLATELET COUNT (test code = PLT) 227 K/mm3 150-450 N MEAN PLATELET VOLUME (test code = MPV) 10.5 fL 6.7-11.0 N NEUTROPHIL % (test code = NT%) 77.3 % 39.0-69.0 H IMMATURE GRANULOCYTE % (test code = IG%) 0.3 % 0.0-5.0 N LYMPHOCYTE % (test code = LY%) 10.5 % 25.0-55.0 L MONOCYTE % (test code = MO%) 8.8 % 0.0-10.0 N EOSINOPHIL % (test code = EO%) 2.3 % 0.0-5.0 N BASOPHIL % (test code = BA%) 0.8 % 0.0-1.0 N NUCLEATED RBC % (test code = NRBC%) 0.0 % 0-0 N NEUTROPHIL # (test code = NT#) 5.59 K/mm3 1.8-7.7 N IMMATURE GRANULOCYTE # (test code = IG#) 0.02 x10 3/uL 0-0.03 N LYMPHOCYTE # (test code = LY#) 0.76 K/mm3 1.0-5.0 L MONOCYTE # (test code = MO#) 0.64 K/mm3 0-0.8 N EOSINOPHIL # (test code = EO#) 0.17 K/mm3 0.0-0.5 N BASOPHIL # (test code = BA#) 0.06 K/mm3 0.0-0.2 N NUCLEATED RBC # (test code = NRBC#) 0.00 K/mm3 0.0-0.1 N [id number] 20:33:00* Test Item Value Reference Range Interpretation Comments GLUBED (test code = GLUBED) 143 mg/dL 74-106 H Performed by certified matrix bath operator at [facility] [id number] 16:56:00* Test Item Value Reference Range Interpretation Comments GLUBED (test code = GLUBED) 108 mg/dL 74-106 H Performed by certified matrix bath operator at [facility] [id number] 11:07:00* Test Item Value Reference Range Interpretation Comments GLUBED (test code = GLUBED) 152 mg/dL 74-106 H Performed by certified matrix bath operator at [facility] [id number] 06:46:00* Test Item Value Reference Range Interpretation Comments TROPONIN-I (test code = TROPI) 0.698 ng/mL 0-0.045 HH RESULT VERIFIED BY REPEAT ANALYSIS COMPREHENSIVE METABOLIC [id number] 06:14:00* Test Item Value Reference Range Interpretation Comments SODIUM (test code = NA) 134 mmol/L 136-145 L POTASSIUM (test code = K) 3.8 mmol/L 3.5-5.1 N CHLORIDE (test code = CL) 95.0 mmol/L 98-107 L CARBON DIOXIDE (test code = CO2) 27.0 mmol/L 21-32 N ANION GAP (test code = GAP) 15.8 10-20 N GLUCOSE (test code = GLU) 178 mg/dL 74-106 H BLOOD UREA NITROGEN (test code = BUN) 21 mg/dL 7-18 H RESULT VERIFIED BY REPEAT ANALYSIS GLOMERULAR FILTRATION RATE (test code = GFR) 12 mL/min >=60 Estimated GFR by using Modified MDRD formula.Chronic kidney disease is defined as either kidney damageor GFR <60 mL/min/1.73 m2 for >3 months. CREATININE (test code = CREAT) 3.70 mg/dL 0.55-1.02 H Note change in reference range due to change in reagent. BUN/CREATININE RATIO (test code = BUN/CREA) 5.7 10-20 L TOTAL PROTEIN (test code = PROT) 7.9 gram/dL 6.4-8.2 N ALBUMIN (test code = ALB) 3.4 g/dL 3.4-5.0 N GLOBULIN (test code = GLOB) 4.5 gram/dL 2.7-4.2 H ALBUMIN/GLOBULIN RATIO (test code = A/G) 0.8 0.75-1.50 N CALCIUM (test code = CA) 9.0 mg/dL 8.5-10.1 N BILIRUBIN TOTAL (test code = BILT) 1.30 mg/dL 0.0-1.0 H SGOT/AST (test code = AST) 19 IUnit/L 15-37 N SGPT/ALT (test code = ALT) 7 IUnit/L 12-78 L ALKALINE PHOSPHATASE TOTAL (test code = ALKP) 101 IUnit/L 45-117 N Note change in reference range due to change in reagent. CBC W/AUTO [id number] 05:28:00* Test Item Value Reference Range Interpretation Comments WHITE BLOOD CELL (test code = WBC) 14.1 K/mm3 4.5-12.5 H RED BLOOD CELL (test code = RBC) 4.43 mill/mm3 3.7-5.2 N HEMOGLOBIN (test code = HGB) 12.4 gram/dL 11.5-15.5 N HEMATOCRIT (test code = HCT) 40.5 % 36.0-46.0 N MEAN CELL VOLUME (test code = MCV) 91.4 fL 80-98 N MEAN CELL HGB (test code = MCH) 28.0 picogram 27.0-33.0 N MEAN CELL HGB CONCETRATION (test code = MCHC) 30.6 gram/dL 33.0-36. 0 L RED CELL DISTRIBUTION WIDTH (test code = RDW) 20.0 % 11.6-16. 2 H RED CELL DISTRIBUTION WIDTH SD (test code = RDW-SD) 66.7 fL 37 .0-51.0 H PLATELET COUNT (test code = PLT) 241 K/mm3 150-450 N MEAN PLATELET VOLUME (test code = MPV) 11.1 fL 6.7-11.0 H NEUTROPHIL % (test code = NT%) 88.8 % 39.0-69.0 H IMMATURE GRANULOCYTE % (test code = IG%) 0.5 % 0.0-5.0 N LYMPHOCYTE % (test code = LY%) 3.6 % 25.0-55.0 L MONOCYTE % (test code = MO%) 6.4 % 0.0-10.0 N EOSINOPHIL % (test code = EO%) 0.1 % 0.0-5.0 N BASOPHIL % (test code = BA%) 0.6 % 0.0-1.0 N NUCLEATED RBC % (test code = NRBC%) 0.0 % 0-0 N NEUTROPHIL # (test code = NT#) 12.51 K/mm3 1.8-7.7 H IMMATURE GRANULOCYTE # (test code = IG#) 0.07 x10 3/uL 0-0.03 H LYMPHOCYTE # (test code = LY#) 0.50 K/mm3 1.0-5.0 L MONOCYTE # (test code = MO#) 0.90 K/mm3 0-0.8 H EOSINOPHIL # (test code = EO#) 0.01 K/mm3 0.0-0.5 N BASOPHIL # (test code = BA#) 0.08 K/mm3 0.0-0.2 N NUCLEATED RBC # (test code = NRBC#) 0.00 K/mm3 0.0-0.1 N MANUAL DIFF REQUIRED (test code = MDIFF) NO [id number] 22:30:00* Test Item Value Reference Range Interpretation Comments TROPONIN-I (test code = TROPI) 0.780 ng/mL 0-0.045 HH Results called to [id number] by SORAIDA 10/11/18 2230Critical results verified and read back by Nurse? Y [id number] 20:32:00* Test Item Value Reference Range Interpretation Comments GLUBED (test code = GLUBED) 243 mg/dL 74-106 H Performed by certified matrix bath operator at [facility] CBC W/AUTO [id number] 17:48:00* Test Item Value Reference Range Interpretation Comments WHITE BLOOD CELL (test code = WBC) 16.5 K/mm3 4.5-12.5 H RED BLOOD CELL (test code = RBC) 4.63 mill/mm3 3.7-5.2 N HEMOGLOBIN (test code = HGB) 13.1 gram/dL 11.5-15.5 N HEMATOCRIT (test code = HCT) 42.3 % 36.0-46.0 N MEAN CELL VOLUME (test code = MCV) 91.4 fL 80-98 N MEAN CELL HGB (test code = MCH) 28.3 picogram 27.0-33.0 N MEAN CELL HGB CONCETRATION (test code = MCHC) 31.0 gram/dL 33.0-36. 0 L RED CELL DISTRIBUTION WIDTH (test code = RDW) 20.9 % 11.6-16. 2 H RED CELL DISTRIBUTION WIDTH SD (test code = RDW-SD) 68.0 fL 37 .0-51.0 H PLATELET COUNT (test code = PLT) 267 K/mm3 150-450 RESULT VERIFIED BY REPEAT ANALYSIS MEAN PLATELET VOLUME (test code = MPV) 10.5 fL 6.7-11.0 N NEUTROPHIL % (test code = NT%) 92.5 % 39.0-69.0 H IMMATURE GRANULOCYTE % (test code = IG%) 0.9 % 0.0-5.0 N LYMPHOCYTE % (test code = LY%) 1.6 % 25.0-55.0 L MONOCYTE % (test code = MO%) 4.4 % 0.0-10.0 N EOSINOPHIL % (test code = EO%) 0.1 % 0.0-5.0 N BASOPHIL % (test code = BA%) 0.5 % 0.0-1.0 N NUCLEATED RBC % (test code = NRBC%) 0.0 % 0-0 N NEUTROPHIL # (test code = NT#) 15.24 K/mm3 1.8-7.7 H IMMATURE GRANULOCYTE # (test code = IG#) 0.15 x10 3/uL 0-0.03 H LYMPHOCYTE # (test code = LY#) 0.27 K/mm3 1.0-5.0 L MONOCYTE # (test code = MO#) 0.73 K/mm3 0-0.8 N EOSINOPHIL # (test code = EO#) 0.01 K/mm3 0.0-0.5 N BASOPHIL # (test code = BA#) 0.08 K/mm3 0.0-0.2 N NUCLEATED RBC # (test code = NRBC#) 0.00 K/mm3 0.0-0.1 N MANUAL DIFF REQUIRED (test code = MDIFF) NO, ONLY SCAN NEEDED DIFFERENTIAL [id number] 17:48:00* Test Item Value Reference Range Interpretation Comments STAIN ACCEPTABILITY (test code = STN ACCEPTABLE) STAIN ACCEPTABLE POLYCHROMASIA (test code = POLC) 1+ HYPOCHROMIA (test code = HYPO) 1+ POIKILOCYTOSIS (test code = POIK) 1+ ANISOCYTOSIS (test code = ANISO) 1+ PLATELET ESTIMATE (test code = PLTEST) ADEQUATE PLATELET MORPHOLOGY (test code = PLTMORPH) SIZE VARIABLE [id number] 16:01:00* Test Item Value Reference Range Interpretation Comments GLUBED (test code = GLUBED) 179 mg/dL 74-106 H Performed by certified matrix bath operator at [facility] COMPREHENSIVE METABOLIC [id number] 15:54:00* Test Item Value Reference Range Interpretation Comments SODIUM (test code = NA) 136 mmol/L 136-145 N POTASSIUM (test code = K) 3.7 mmol/L 3.5-5.1 N CHLORIDE (test code = CL) 98.0 mmol/L 98-107 N CARBON DIOXIDE (test code = CO2) 26.0 mmol/L 21-32 N ANION GAP (test code = GAP) 15.7 10-20 N GLUCOSE (test code = GLU) 173 mg/dL 74-106 H BLOOD UREA NITROGEN (test code = BUN) 9 mg/dL 7-18 RESULT VERIFIED BY REPEAT ANALYSIS GLOMERULAR FILTRATION RATE (test code = GFR) 20 mL/min >=60 Estimated GFR by using Modified MDRD formula.Chronic kidney disease is defined as either kidney damageor GFR <60 mL/min/1.73 m2 for >3 months. CREATININE (test code = CREAT) 2.30 mg/dL 0.55-1.02 H Note change in reference range due to change in reagent. BUN/CREATININE RATIO (test code = BUN/CREA) 3.9 10-20 L TOTAL PROTEIN (test code = PROT) 8.5 gram/dL 6.4-8.2 H ALBUMIN (test code = ALB) 4.0 g/dL 3.4-5.0 N GLOBULIN (test code = GLOB) 4.5 gram/dL 2.7-4.2 H ALBUMIN/GLOBULIN RATIO (test code = A/G) 0.9 0.75-1.50 N CALCIUM (test code = CA) 9.7 mg/dL 8.5-10.1 N BILIRUBIN TOTAL (test code = BILT) 1.30 mg/dL 0.0-1.0 H SGOT/AST (test code = AST) 23 IUnit/L 15-37 N SGPT/ALT (test code = ALT) 8 IUnit/L 12-78 L ALKALINE PHOSPHATASE TOTAL (test code = ALKP) 117 IUnit/L 45-117 N Note change in reference range due to change in reagent. COMPREHENSIVE METABOLIC [id number] 15:40:00* Test Item Value Reference Range Interpretation Comments SODIUM (test code = NA) 136 mmol/L 136-145 N POTASSIUM (test code = K) 3.7 mmol/L 3.5-5.1 N CHLORIDE (test code = CL) 98.0 mmol/L 98-107 N CARBON DIOXIDE (test code = CO2) 26.0 mmol/L 21-32 N ANION GAP (test code = GAP) 15.7 10-20 N GLUCOSE (test code = GLU) 173 mg/dL 74-106 H BLOOD UREA NITROGEN (test code = BUN) 9 mg/dL 7-18 GLOMERULAR FILTRATION RATE (test code = GFR) 20 mL/min >=60 Estimated GFR by using Modified MDRD formula.Chronic kidney disease is defined as either kidney damageor GFR <60 mL/min/1.73 m2 for >3 months. CREATININE (test code = CREAT) 2.30 mg/dL 0.55-1.02 H Note change in reference range due to change in reagent. BUN/CREATININE RATIO (test code = BUN/CREA) 3.9 10-20 L TOTAL PROTEIN (test code = PROT) 8.5 gram/dL 6.4-8.2 H ALBUMIN (test code = ALB) 4.0 g/dL 3.4-5.0 N GLOBULIN (test code = GLOB) 4.5 gram/dL 2.7-4.2 H ALBUMIN/GLOBULIN RATIO (test code = A/G) 0.9 0.75-1.50 N CALCIUM (test code = CA) 9.7 mg/dL 8.5-10.1 N BILIRUBIN TOTAL (test code = BILT) 1.30 mg/dL 0.0-1.0 H SGOT/AST (test code = AST) 23 IUnit/L 15-37 N SGPT/ALT (test code = ALT) 8 IUnit/L 12-78 L ALKALINE PHOSPHATASE TOTAL (test code = ALKP) 117 IUnit/L 45-117 N Note change in reference range due to change in reagent. COMPREHENSIVE METABOLIC [id number] 15:28:00* Test Item Value Reference Range Interpretation Comments SODIUM (test code = NA) 136 mmol/L 136-145 N POTASSIUM (test code = K) 3.7 mmol/L 3.5-5.1 N CHLORIDE (test code = CL) 98.0 mmol/L 98-107 N CARBON DIOXIDE (test code = CO2) mmol/L 21-32 ANION GAP (test code = GAP) 10-20 GLUCOSE (test code = GLU) mg/dL 74-106 BLOOD UREA NITROGEN (test code = BUN) mg/dL 7-18 GLOMERULAR FILTRATION RATE (test code = GFR) mL/min >=60 CREATININE (test code = CREAT) mg/dL 0.55-1.02 BUN/CREATININE RATIO (test code = BUN/CREA) 10-20 TOTAL PROTEIN (test code = PROT) gram/dL 6.4-8.2 ALBUMIN (test code = ALB) g/dL 3.4-5.0 GLOBULIN (test code = GLOB) gram/dL 2.7-4.2 ALBUMIN/GLOBULIN RATIO (test code = A/G) 0.75-1.50 CALCIUM (test code = CA) mg/dL 8.5-10.1 BILIRUBIN TOTAL (test code = BILT) mg/dL 0.0-1.0 SGOT/AST (test code = AST) IUnit/L 15-37 SGPT/ALT (test code = ALT) IUnit/L 12-78 ALKALINE PHOSPHATASE TOTAL (test code = ALKP) IUnit/L 45-117 CBC W/AUTO [id number] 14:24:00* Test Item Value Reference Range Interpretation Comments WHITE BLOOD CELL (test code = WBC) 16.5 K/mm3 4.5-12.5 H RED BLOOD CELL (test code = RBC) 4.63 mill/mm3 3.7-5.2 N HEMOGLOBIN (test code = HGB) 13.1 gram/dL 11.5-15.5 N HEMATOCRIT (test code = HCT) 42.3 % 36.0-46.0 N MEAN CELL VOLUME (test code = MCV) 91.4 fL 80-98 N MEAN CELL HGB (test code = MCH) 28.3 picogram 27.0-33.0 N MEAN CELL HGB CONCETRATION (test code = MCHC) 31.0 gram/dL 33.0-36. 0 L RED CELL DISTRIBUTION WIDTH (test code = RDW) 20.9 % 11.6-16. 2 H RED CELL DISTRIBUTION WIDTH SD (test code = RDW-SD) 68.0 fL 37 .0-51.0 H PLATELET COUNT (test code = PLT) 267 K/mm3 150-450 RESULT VERIFIED BY REPEAT ANALYSIS MEAN PLATELET VOLUME (test code = MPV) 10.5 fL 6.7-11.0 N NEUTROPHIL % (test code = NT%) 92.5 % 39.0-69.0 H IMMATURE GRANULOCYTE % (test code = IG%) 0.9 % 0.0-5.0 N LYMPHOCYTE % (test code = LY%) 1.6 % 25.0-55.0 L MONOCYTE % (test code = MO%) 4.4 % 0.0-10.0 N EOSINOPHIL % (test code = EO%) 0.1 % 0.0-5.0 N BASOPHIL % (test code = BA%) 0.5 % 0.0-1.0 N NUCLEATED RBC % (test code = NRBC%) 0.0 % 0-0 N NEUTROPHIL # (test code = NT#) 15.24 K/mm3 1.8-7.7 H IMMATURE GRANULOCYTE # (test code = IG#) 0.15 x10 3/uL 0-0.03 H LYMPHOCYTE # (test code = LY#) 0.27 K/mm3 1.0-5.0 L MONOCYTE # (test code = MO#) 0.73 K/mm3 0-0.8 N EOSINOPHIL # (test code = EO#) 0.01 K/mm3 0.0-0.5 N BASOPHIL # (test code = BA#) 0.08 K/mm3 0.0-0.2 N NUCLEATED RBC # (test code = NRBC#) 0.00 K/mm3 0.0-0.1 N MANUAL DIFF REQUIRED (test code = MDIFF) NO, ONLY SCAN NEEDED DIFFERENTIAL [id number] 14:24:00* Test Item Value Reference Range Interpretation Comments STAIN ACCEPTABILITY (test code = STN ACCEPTABLE) CABOT RINGS (test code = CAB) MORPHOLOGY COMMENT (test code = MOC) PLATELET ESTIMATE (test code = PLTEST) PLATELET MORPHOLOGY (test code = PLTMORPH) CBC W/AUTO [id number] 14:24:00* Test Item Value Reference Range Interpretation Comments WHITE BLOOD CELL (test code = WBC) 16.5 K/mm3 4.5-12.5 H RED BLOOD CELL (test code = RBC) 4.63 mill/mm3 3.7-5.2 N HEMOGLOBIN (test code = HGB) 13.1 gram/dL 11.5-15.5 N HEMATOCRIT (test code = HCT) 42.3 % 36.0-46.0 N MEAN CELL VOLUME (test code = MCV) 91.4 fL 80-98 N MEAN CELL HGB (test code = MCH) 28.3 picogram 27.0-33.0 N MEAN CELL HGB CONCETRATION (test code = MCHC) 31.0 gram/dL 33.0-36. 0 L RED CELL DISTRIBUTION WIDTH (test code = RDW) 20.9 % 11.6-16. 2 H RED CELL DISTRIBUTION WIDTH SD (test code = RDW-SD) 68.0 fL 37 .0-51.0 H PLATELET COUNT (test code = PLT) 267 K/mm3 150-450 RESULT VERIFIED BY REPEAT ANALYSIS MEAN PLATELET VOLUME (test code = MPV) 10.5 fL 6.7-11.0 N NEUTROPHIL % (test code = NT%) 92.5 % 39.0-69.0 H IMMATURE GRANULOCYTE % (test code = IG%) 0.9 % 0.0-5.0 N LYMPHOCYTE % (test code = LY%) 1.6 % 25.0-55.0 L MONOCYTE % (test code = MO%) 4.4 % 0.0-10.0 N EOSINOPHIL % (test code = EO%) 0.1 % 0.0-5.0 N BASOPHIL % (test code = BA%) 0.5 % 0.0-1.0 N NUCLEATED RBC % (test code = NRBC%) 0.0 % 0-0 N NEUTROPHIL # (test code = NT#) 15.24 K/mm3 1.8-7.7 H IMMATURE GRANULOCYTE # (test code = IG#) 0.15 x10 3/uL 0-0.03 H LYMPHOCYTE # (test code = LY#) 0.27 K/mm3 1.0-5.0 L MONOCYTE # (test code = MO#) 0.73 K/mm3 0-0.8 N EOSINOPHIL # (test code = EO#) 0.01 K/mm3 0.0-0.5 N BASOPHIL # (test code = BA#) 0.08 K/mm3 0.0-0.2 N NUCLEATED RBC # (test code = NRBC#) 0.00 K/mm3 0.0-0.1 N MANUAL DIFF REQUIRED (test code = MDIFF) NO, ONLY SCAN NEEDED DIFFERENTIAL [id number] 14:24:00* Test Item Value Reference Range Interpretation Comments STAIN ACCEPTABILITY (test code = STN ACCEPTABLE) CABOT RINGS (test code = CAB) MORPHOLOGY COMMENT (test code = MOC) PLATELET ESTIMATE (test code = PLTEST) PLATELET MORPHOLOGY (test code = PLTMORPH) CBC W/AUTO [id number] 14:24:00* Test Item Value Reference Range Interpretation Comments WHITE BLOOD CELL (test code = WBC) 16.5 K/mm3 4.5-12.5 H RED BLOOD CELL (test code = RBC) 4.63 mill/mm3 3.7-5.2 N HEMOGLOBIN (test code = HGB) 13.1 gram/dL 11.5-15.5 N HEMATOCRIT (test code = HCT) 42.3 % 36.0-46.0 N MEAN CELL VOLUME (test code = MCV) 91.4 fL 80-98 N MEAN CELL HGB (test code = MCH) 28.3 picogram 27.0-33.0 N MEAN CELL HGB CONCETRATION (test code = MCHC) 31.0 gram/dL 33.0-36. 0 L RED CELL DISTRIBUTION WIDTH (test code = RDW) 20.9 % 11.6-16. 2 H RED CELL DISTRIBUTION WIDTH SD (test code = RDW-SD) 68.0 fL 37 .0-51.0 H PLATELET COUNT (test code = PLT) 267 K/mm3 150-450 RESULT VERIFIED BY REPEAT ANALYSIS MEAN PLATELET VOLUME (test code = MPV) 10.5 fL 6.7-11.0 N NEUTROPHIL % (test code = NT%) 92.5 % 39.0-69.0 H IMMATURE GRANULOCYTE % (test code = IG%) 0.9 % 0.0-5.0 N LYMPHOCYTE % (test code = LY%) 1.6 % 25.0-55.0 L MONOCYTE % (test code = MO%) 4.4 % 0.0-10.0 N EOSINOPHIL % (test code = EO%) 0.1 % 0.0-5.0 N BASOPHIL % (test code = BA%) 0.5 % 0.0-1.0 N NUCLEATED RBC % (test code = NRBC%) 0.0 % 0-0 N NEUTROPHIL # (test code = NT#) 15.24 K/mm3 1.8-7.7 H IMMATURE GRANULOCYTE # (test code = IG#) 0.15 x10 3/uL 0-0.03 H LYMPHOCYTE # (test code = LY#) 0.27 K/mm3 1.0-5.0 L MONOCYTE # (test code = MO#) 0.73 K/mm3 0-0.8 N EOSINOPHIL # (test code = EO#) 0.01 K/mm3 0.0-0.5 N BASOPHIL # (test code = BA#) 0.08 K/mm3 0.0-0.2 N NUCLEATED RBC # (test code = NRBC#) 0.00 K/mm3 0.0-0.1 N MANUAL DIFF REQUIRED (test code = MDIFF) NO, ONLY SCAN NEEDED DIFFERENTIAL [id number] 14:24:00* Test Item Value Reference Range Interpretation Comments STAIN ACCEPTABILITY (test code = STN ACCEPTABLE) MORPHOLOGY COMMENT (test code = MOC) PLATELET ESTIMATE (test code = PLTEST) PLATELET MORPHOLOGY (test code = PLTMORPH) CBC W/AUTO [id number] 14:24:00* Test Item Value Reference Range Interpretation Comments WHITE BLOOD CELL (test code = WBC) 16.5 K/mm3 4.5-12.5 H RED BLOOD CELL (test code = RBC) 4.63 mill/mm3 3.7-5.2 N HEMOGLOBIN (test code = HGB) 13.1 gram/dL 11.5-15.5 N HEMATOCRIT (test code = HCT) 42.3 % 36.0-46.0 N MEAN CELL VOLUME (test code = MCV) 91.4 fL 80-98 N MEAN CELL HGB (test code = MCH) 28.3 picogram 27.0-33.0 N MEAN CELL HGB CONCETRATION (test code = MCHC) 31.0 gram/dL 33.0-36. 0 L RED CELL DISTRIBUTION WIDTH (test code = RDW) 20.9 % 11.6-16. 2 H RED CELL DISTRIBUTION WIDTH SD (test code = RDW-SD) 68.0 fL 37 .0-51.0 H PLATELET COUNT (test code = PLT) 267 K/mm3 150-450 RESULT VERIFIED BY REPEAT ANALYSIS MEAN PLATELET VOLUME (test code = MPV) 10.5 fL 6.7-11.0 N NEUTROPHIL % (test code = NT%) 92.5 % 39.0-69.0 H IMMATURE GRANULOCYTE % (test code = IG%) 0.9 % 0.0-5.0 N LYMPHOCYTE % (test code = LY%) 1.6 % 25.0-55.0 L MONOCYTE % (test code = MO%) 4.4 % 0.0-10.0 N EOSINOPHIL % (test code = EO%) 0.1 % 0.0-5.0 N BASOPHIL % (test code = BA%) 0.5 % 0.0-1.0 N NUCLEATED RBC % (test code = NRBC%) 0.0 % 0-0 N NEUTROPHIL # (test code = NT#) 15.24 K/mm3 1.8-7.7 H IMMATURE GRANULOCYTE # (test code = IG#) 0.15 x10 3/uL 0-0.03 H LYMPHOCYTE # (test code = LY#) 0.27 K/mm3 1.0-5.0 L MONOCYTE # (test code = MO#) 0.73 K/mm3 0-0.8 N EOSINOPHIL # (test code = EO#) 0.01 K/mm3 0.0-0.5 N BASOPHIL # (test code = BA#) 0.08 K/mm3 0.0-0.2 N NUCLEATED RBC # (test code = NRBC#) 0.00 K/mm3 0.0-0.1 N MANUAL DIFF REQUIRED (test code = MDIFF) NO, ONLY SCAN NEEDED DIFFERENTIAL [id number] 14:24:00* Test Item Value Reference Range Interpretation Comments STAIN ACCEPTABILITY (test code = STN ACCEPTABLE) CABOT RINGS (test code = CAB) MORPHOLOGY COMMENT (test code = MOC) PLATELET ESTIMATE (test code = PLTEST) PLATELET MORPHOLOGY (test code = PLTMORPH) [id number] 11:59:00* Test Item Value Reference Range Interpretation Comments GLUBED (test code = GLUBED) 159 mg/dL 74-106 H Performed by certified matrix bath operator at [facility] COMPREHENSIVE METABOLIC [id number] 05:23:00* Test Item Value Reference Range Interpretation Comments SODIUM (test code = NA) 136 mmol/L 136-145 N POTASSIUM (test code = K) 4.1 mmol/L 3.5-5.1 N CHLORIDE (test code = CL) 92.0 mmol/L 98-107 L CARBON DIOXIDE (test code = CO2) 31.0 mmol/L 21-32 N ANION GAP (test code = GAP) 17.1 10-20 N GLUCOSE (test code = GLU) 54 mg/dL 74-106 L BLOOD UREA NITROGEN (test code = BUN) 30 mg/dL 7-18 H RESULT VERIFIED BY REPEAT ANALYSIS GLOMERULAR FILTRATION RATE (test code = GFR) 8 mL/min >=60 Estimated GFR by using Modified MDRD formula.Chronic kidney disease is defined as either kidney damageor GFR <60 mL/min/1.73 m2 for >3 months. CREATININE (test code = CREAT) 5.30 mg/dL 0.55-1.02 H Note change in reference range due to change in reagent. BUN/CREATININE RATIO (test code = BUN/CREA) 5.7 10-20 L TOTAL PROTEIN (test code = PROT) 6.8 gram/dL 6.4-8.2 N ALBUMIN (test code = ALB) 3.3 g/dL 3.4-5.0 L GLOBULIN (test code = GLOB) 3.5 gram/dL 2.7-4.2 N ALBUMIN/GLOBULIN RATIO (test code = A/G) 0.9 0.75-1.50 N CALCIUM (test code = CA) 8.4 mg/dL 8.5-10.1 L BILIRUBIN TOTAL (test code = BILT) 0.90 mg/dL 0.0-1.0 N SGOT/AST (test code = AST) 25 IUnit/L 15-37 N SGPT/ALT (test code = ALT) 6 IUnit/L 12-78 L ALKALINE PHOSPHATASE TOTAL (test code = ALKP) 97 IUnit/L 45-117 N Note change in reference range due to change in reagent. [id number] 05:23:00* Test Item Value Reference Range Interpretation Comments PHOSPHORUS (test code = PHOS) 5.7 mg/dL 2.5-4.9 H [id number] 05:23:00* Test Item Value Reference Range Interpretation Comments MAGNESIUM (test code = MAG) 2.5 mg/dL 1.8-2.4 H CALCIUM [id number] 05:23:00* Test Item Value Reference Range Interpretation Comments CALCIUM IONIZED (test code = GRIFFIN) 1.11 mmol/L 1.12-1.32 L BASIC METABOLIC [id number] 05:15:00* Test Item Value Reference Range Interpretation Comments SODIUM (test code = NA) TEST NOT PERFORMED mmol/L 136-145 N Previously reported result: 136 mmol/LEdited by: XAVIER on 10/11/18:939941 0514: NA previously reported as: 136 mmol/L BASIC METABOLIC [id number] 05:07:00* Test Item Value Reference Range Interpretation Comments SODIUM (test code = NA) 136 mmol/L 136-145 N POTASSIUM (test code = K) 3.9 mmol/L 3.5-5.1 N CHLORIDE (test code = CL) 94.0 mmol/L 98-107 L CARBON DIOXIDE (test code = CO2) mmol/L 21-32 ANION GAP (test code = GAP) 10-20 GLUCOSE (test code = GLU) mg/dL 74-106 BLOOD UREA NITROGEN (test code = BUN) mg/dL 7-18 GLOMERULAR FILTRATION RATE (test code = GFR) mL/min >=60 CREATININE (test code = CREAT) mg/dL 0.55-1.02 BUN/CREATININE RATIO (test code = BUN/CREA) 10-20 CALCIUM (test code = CA) mg/dL 8.5-10.1 [id number] 05:07:00* Test Item Value Reference Range Interpretation Comments ALBUMIN (test code = ALB) g/dL 3.4-5.0 COMPREHENSIVE METABOLIC [id number] 05:07:00* Test Item Value Reference Range Interpretation Comments SODIUM (test code = NA) 136 mmol/L 136-145 N POTASSIUM (test code = K) 4.1 mmol/L 3.5-5.1 N CHLORIDE (test code = CL) 92.0 mmol/L 98-107 L CARBON DIOXIDE (test code = CO2) mmol/L 21-32 ANION GAP (test code = GAP) 10-20 GLUCOSE (test code = GLU) mg/dL 74-106 BLOOD UREA NITROGEN (test code = BUN) mg/dL 7-18 GLOMERULAR FILTRATION RATE (test code = GFR) mL/min >=60 CREATININE (test code = CREAT) mg/dL 0.55-1.02 BUN/CREATININE RATIO (test code = BUN/CREA) 10-20 TOTAL PROTEIN (test code = PROT) gram/dL 6.4-8.2 ALBUMIN (test code = ALB) g/dL 3.4-5.0 GLOBULIN (test code = GLOB) gram/dL 2.7-4.2 ALBUMIN/GLOBULIN RATIO (test code = A/G) 0.75-1.50 CALCIUM (test code = CA) mg/dL 8.5-10.1 BILIRUBIN TOTAL (test code = BILT) mg/dL 0.0-1.0 SGOT/AST (test code = AST) IUnit/L 15-37 SGPT/ALT (test code = ALT) IUnit/L 12-78 ALKALINE PHOSPHATASE TOTAL (test code = ALKP) IUnit/L 45-117 [id number] 05:07:00* Test Item Value Reference Range Interpretation Comments PHOSPHORUS (test code = PHOS) mg/dL 2.5-4.9 [id number] 05:07:00* Test Item Value Reference Range Interpretation Comments MAGNESIUM (test code = MAG) mg/dL 1.8-2.4 CALCIUM [id number] 05:07:00* Test Item Value Reference Range Interpretation Comments CALCIUM IONIZED (test code = GRIFFIN) 1.11 mmol/L 1.12-1.32 L COMPREHENSIVE METABOLIC [id number] 05:01:00* Test Item Value Reference Range Interpretation Comments SODIUM (test code = NA) mmol/L 136-145 POTASSIUM (test code = K) mmol/L 3.5-5.1 CHLORIDE (test code = CL) mmol/L 98-107 CARBON DIOXIDE (test code = CO2) mmol/L 21-32 ANION GAP (test code = GAP) 10-20 GLUCOSE (test code = GLU) mg/dL 74-106 BLOOD UREA NITROGEN (test code = BUN) mg/dL 7-18 GLOMERULAR FILTRATION RATE (test code = GFR) mL/min >=60 CREATININE (test code = CREAT) mg/dL 0.55-1.02 BUN/CREATININE RATIO (test code = BUN/CREA) 10-20 TOTAL PROTEIN (test code = PROT) gram/dL 6.4-8.2 ALBUMIN (test code = ALB) g/dL 3.4-5.0 GLOBULIN (test code = GLOB) gram/dL 2.7-4.2 ALBUMIN/GLOBULIN RATIO (test code = A/G) 0.75-1.50 CALCIUM (test code = CA) mg/dL 8.5-10.1 BILIRUBIN TOTAL (test code = BILT) mg/dL 0.0-1.0 SGOT/AST (test code = AST) IUnit/L 15-37 SGPT/ALT (test code = ALT) IUnit/L 12-78 ALKALINE PHOSPHATASE TOTAL (test code = ALKP) IUnit/L 45-117 [id number] 05:01:00* Test Item Value Reference Range Interpretation Comments PHOSPHORUS (test code = PHOS) mg/dL 2.5-4.9 [id number] 05:01:00* Test Item Value Reference Range Interpretation Comments MAGNESIUM (test code = MAG) mg/dL 1.8-2.4 CALCIUM [id number] 05:01:00* Test Item Value Reference Range Interpretation Comments CALCIUM IONIZED (test code = GRIFFIN) 1.11 mmol/L 1.12-1.32 L - XR ABDOMEN AP 1 [id number] 13:23:00 FAX: Ravin Toledo MD [phone] [place]: St: [facility] FAX: Harsh Rodrigez MD [phone] Name: VIVEK LÓPEZ [facility] : 1940 Age/S: 78/F [address] [facility] Unit #: [id number] [email or web address] [place] [address] Phys: Ravin Toledo MD Acct: [id number] Dis Date: Status: ADM IN PHONE #: [phone] Exam Date: 10/10/2018 1305 FAX #: [phone] Reason: abd pain EXAMS: CPT CODE: [id number] XR ABDOMEN AP 1 V [id number] HISTORY: abd pain TECHNIQUE: AP abdomen x-ray COMPARISON: CT of the abdomen and pelvis October 09, 2018 and September 26, 2012 FINDINGS: Nonobstructive bowel gas pattern. No significant stool burden. No intra-abdominal mass effect. No abnormal calcifications are observed. Degenerative changes are present in the spine and hips. Bone mineralization is de creased. There is been a prior cholecystectomy. There is surgical hardware in the proximal left femur that is incompletely visualized. Visualized th orax is within normal limits. IMPRESSION: No radiographic evidence of acute intra-abdominal process. Electronica lly Signed by Navin Butt MD on 10/10/2018 at 1323 Repor bao and signed by: Navin Butt MD CC: Ravin Toledo MD; Harsh Murphy Technologist: Mariana Choi; STUDENT TECHNOL ADRY Trnscrd Date/Time/By: 10/10/2018 (5613) : By: [email or web address] Orig Print D/T: S: 10/10/2018 (7308) PAGE 1 Signed Report - XR ABDOMEN AP 1 V 2018-10-10 13:23:00 FAX: Ravin Toledo MD [phone] [place]: St: ADM FAX: Harsh Rodrigez MD [phone] Name: VIVEK FINNEY [facility] : 1940 Age/S: 78/F [address] [facility] Unit #: [id number] Loc: [address] [address] Phys: Ravin Toledo MD Acct: [id number] Dis Date: Status: ADM IN PHONE #: [phone] Exam Date: 10/10/2018 1305 FAX #: [phone] Reason: abd pain EXAMS: CPT CODE: [id number] XR ABDOMEN AP 1 V [id number] HISTORY: abd pain TECHNIQUE: AP abdomen x-ray COMPARISON: CT of the abdomen and pelvis October 09, 2018 and September 26, 2012 FINDINGS: Nonobstructive bowel gas pattern. No significant stool burden. No intra-abdominal mass effect. No abnormal calcifications are observed. Degenerative changes are present in the spine and hips. Bone mineralization is decreased. There is been a prior cholecystectomy. There is surgical hardware in the proximal left femur that is incompletely visualized. Visualized thorax is within normal limits. IMPRESSION: No radiographic evidence of acute intra-abdominal process. at 1323 Reported and signed by: Navin Butt MD CC: Ravin Toledo MD; Harsh Gan Technologist: Mariana Choi; STUDENT TECHNOLOGIST Trnscrd Date/Time/By: 10/10/2018 (4503) : By: [email or web address] Orig Print D/T: S: 10/10/2018 (3974) PAGE 1 Signed Report CBC W/AUTO [id number] 10:27:00* Test Item Value Reference Range Interpretation Comments WHITE BLOOD CELL (test code = WBC) 15.0 K/mm3 4.5-12.5 H RED BLOOD CELL (test code = RBC) 4.36 mill/mm3 3.7-5.2 N HEMOGLOBIN (test code = HGB) 12.3 gram/dL 11.5-15.5 N HEMATOCRIT (test code = HCT) 38.4 % 36.0-46.0 N MEAN CELL VOLUME (test code = MCV) 88.1 fL 80-98 N MEAN CELL HGB (test code = MCH) 28.2 picogram 27.0-33.0 N MEAN CELL HGB CONCETRATION (test code = MCHC) 32.0 gram/dL 33.0-36. 0 L RED CELL DISTRIBUTION WIDTH (test code = RDW) 20.3 % 11.6-16. 2 H RED CELL DISTRIBUTION WIDTH SD (test code = RDW-SD) 62.8 fL 37 .0-51.0 H PLATELET COUNT (test code = PLT) 317 K/mm3 150-450 N MEAN PLATELET VOLUME (test code = MPV) 10.6 fL 6.7-11.0 N NEUTROPHIL % (test code = NT%) 83.3 % 39.0-69.0 H IMMATURE GRANULOCYTE % (test code = IG%) 0.7 % 0.0-5.0 N LYMPHOCYTE % (test code = LY%) 4.3 % 25.0-55.0 L MONOCYTE % (test code = MO%) 11.4 % 0.0-10.0 H EOSINOPHIL % (test code = EO%) 0.0 % 0.0-5.0 N BASOPHIL % (test code = BA%) 0.3 % 0.0-1.0 N NUCLEATED RBC % (test code = NRBC%) 0.0 % 0-0 N NEUTROPHIL # (test code = NT#) 12.50 K/mm3 1.8-7.7 H IMMATURE GRANULOCYTE # (test code = IG#) 0.10 x10 3/uL 0-0.03 H LYMPHOCYTE # (test code = LY#) 0.64 K/mm3 1.0-5.0 L MONOCYTE # (test code = MO#) 1.71 K/mm3 0-0.8 H EOSINOPHIL # (test code = EO#) 0.00 K/mm3 0.0-0.5 N BASOPHIL # (test code = BA#) 0.04 K/mm3 0.0-0.2 N NUCLEATED RBC # (test code = NRBC#) 0.00 K/mm3 0.0-0.1 N MANUAL DIFF REQUIRED (test code = MDIFF) NO, ONLY SCAN NEEDED DIFFERENTIAL [id number] 10:27:00* Test Item Value Reference Range Interpretation Comments STAIN ACCEPTABILITY (test code = STN ACCEPTABLE) STAIN ACCEPTABLE HYPOCHROMIA (test code = HYPO) 1+ ANISOCYTOSIS (test code = ANISO) 3+ MACROCYTOSIS (test code = MACR) 3+ TARGET CELLS (test code = TGT) 1+ PLATELET ESTIMATE (test code = PLTEST) ADEQUATE PLATELET MORPHOLOGY (test code = PLTMORPH) APPEAR LARGE BASIC METABOLIC [id number] 10:02:00* Test Item Value Reference Range Interpretation Comments SODIUM (test code = NA) 135 mmol/L 136-145 L POTASSIUM (test code = K) 3.6 mmol/L 3.5-5.1 N CHLORIDE (test code = CL) 92.0 mmol/L 98-107 L CARBON DIOXIDE (test code = CO2) 29.0 mmol/L 21-32 N ANION GAP (test code = GAP) 17.6 10-20 N GLUCOSE (test code = GLU) 135 mg/dL 74-106 H BLOOD UREA NITROGEN (test code = BUN) 23 mg/dL 7-18 H RESULT VERIFIED BY REPEAT ANALYSIS GLOMERULAR FILTRATION RATE (test code = GFR) 10 mL/min >=60 Estimated GFR by using Modified MDRD formula.Chronic kidney disease is defined as either kidney damageor GFR <60 mL/min/1.73 m2 for >3 months. CREATININE (test code = CREAT) 4.30 mg/dL 0.55-1.02 H Note change in reference range due to change in reagent. BUN/CREATININE RATIO (test code = BUN/CREA) 5.3 10-20 L CALCIUM (test code = CA) 9.0 mg/dL 8.5-10.1 N BASIC METABOLIC [id number] 09:42:00* Test Item Value Reference Range Interpretation Comments SODIUM (test code = NA) 135 mmol/L 136-145 L POTASSIUM (test code = K) 3.6 mmol/L 3.5-5.1 N CHLORIDE (test code = CL) 92.0 mmol/L 98-107 L CARBON DIOXIDE (test code = CO2) mmol/L 21-32 ANION GAP (test code = GAP) 10-20 GLUCOSE (test code = GLU) mg/dL 74-106 BLOOD UREA NITROGEN (test code = BUN) mg/dL 7-18 GLOMERULAR FILTRATION RATE (test code = GFR) mL/min >=60 CREATININE (test code = CREAT) mg/dL 0.55-1.02 BUN/CREATININE RATIO (test code = BUN/CREA) 10-20 CALCIUM (test code = CA) mg/dL 8.5-10.1 CBC W/AUTO [id number] 09:16:00* Test Item Value Reference Range Interpretation Comments WHITE BLOOD CELL (test code = WBC) 15.0 K/mm3 4.5-12.5 H RED BLOOD CELL (test code = RBC) 4.36 mill/mm3 3.7-5.2 N HEMOGLOBIN (test code = HGB) 12.3 gram/dL 11.5-15.5 N HEMATOCRIT (test code = HCT) 38.4 % 36.0-46.0 N MEAN CELL VOLUME (test code = MCV) 88.1 fL 80-98 N MEAN CELL HGB (test code = MCH) 28.2 picogram 27.0-33.0 N MEAN CELL HGB CONCETRATION (test code = MCHC) 32.0 gram/dL 33.0-36. 0 L RED CELL DISTRIBUTION WIDTH (test code = RDW) 20.3 % 11.6-16. 2 H RED CELL DISTRIBUTION WIDTH SD (test code = RDW-SD) 62.8 fL 37 .0-51.0 H PLATELET COUNT (test code = PLT) 317 K/mm3 150-450 N MEAN PLATELET VOLUME (test code = MPV) 10.6 fL 6.7-11.0 N NEUTROPHIL % (test code = NT%) 83.3 % 39.0-69.0 H IMMATURE GRANULOCYTE % (test code = IG%) 0.7 % 0.0-5.0 N LYMPHOCYTE % (test code = LY%) 4.3 % 25.0-55.0 L MONOCYTE % (test code = MO%) 11.4 % 0.0-10.0 H EOSINOPHIL % (test code = EO%) 0.0 % 0.0-5.0 N BASOPHIL % (test code = BA%) 0.3 % 0.0-1.0 N NUCLEATED RBC % (test code = NRBC%) 0.0 % 0-0 N NEUTROPHIL # (test code = NT#) 12.50 K/mm3 1.8-7.7 H IMMATURE GRANULOCYTE # (test code = IG#) 0.10 x10 3/uL 0-0.03 H LYMPHOCYTE # (test code = LY#) 0.64 K/mm3 1.0-5.0 L MONOCYTE # (test code = MO#) 1.71 K/mm3 0-0.8 H EOSINOPHIL # (test code = EO#) 0.00 K/mm3 0.0-0.5 N BASOPHIL # (test code = BA#) 0.04 K/mm3 0.0-0.2 N NUCLEATED RBC # (test code = NRBC#) 0.00 K/mm3 0.0-0.1 N MANUAL DIFF REQUIRED (test code = MDIFF) NO, ONLY SCAN NEEDED DIFFERENTIAL [id number] 09:16:00* Test Item Value Reference Range Interpretation Comments STAIN ACCEPTABILITY (test code = STN ACCEPTABLE) MORPHOLOGY COMMENT (test code = MOC) PLATELET ESTIMATE (test code = PLTEST) PLATELET MORPHOLOGY (test code = PLTMORPH) CBC W/AUTO [id number] 09:13:00* Test Item Value Reference Range Interpretation Comments WHITE BLOOD CELL (test code = WBC) 15.0 K/mm3 4.5-12.5 H RED BLOOD CELL (test code = RBC) 4.36 mill/mm3 3.7-5.2 N HEMOGLOBIN (test code = HGB) 12.3 gram/dL 11.5-15.5 N HEMATOCRIT (test code = HCT) 38.4 % 36.0-46.0 N MEAN CELL VOLUME (test code = MCV) 88.1 fL 80-98 N MEAN CELL HGB (test code = MCH) 28.2 picogram 27.0-33.0 N MEAN CELL HGB CONCETRATION (test code = MCHC) 32.0 gram/dL 33.0-36. 0 L RED CELL DISTRIBUTION WIDTH (test code = RDW) 20.3 % 11.6-16. 2 H RED CELL DISTRIBUTION WIDTH SD (test code = RDW-SD) 62.8 fL 37 .0-51.0 H PLATELET COUNT (test code = PLT) 317 K/mm3 150-450 N MEAN PLATELET VOLUME (test code = MPV) 10.6 fL 6.7-11.0 N NEUTROPHIL % (test code = NT%) 83.3 % 39.0-69.0 H IMMATURE GRANULOCYTE % (test code = IG%) 0.7 % 0.0-5.0 N LYMPHOCYTE % (test code = LY%) 4.3 % 25.0-55.0 L MONOCYTE % (test code = MO%) 11.4 % 0.0-10.0 H EOSINOPHIL % (test code = EO%) 0.0 % 0.0-5.0 N BASOPHIL % (test code = BA%) 0.3 % 0.0-1.0 N NUCLEATED RBC % (test code = NRBC%) 0.0 % 0-0 N NEUTROPHIL # (test code = NT#) 12.50 K/mm3 1.8-7.7 H IMMATURE GRANULOCYTE # (test code = IG#) 0.10 x10 3/uL 0-0.03 H LYMPHOCYTE # (test code = LY#) 0.64 K/mm3 1.0-5.0 L MONOCYTE # (test code = MO#) 1.71 K/mm3 0-0.8 H EOSINOPHIL # (test code = EO#) 0.00 K/mm3 0.0-0.5 N BASOPHIL # (test code = BA#) 0.04 K/mm3 0.0-0.2 N NUCLEATED RBC # (test code = NRBC#) 0.00 K/mm3 0.0-0.1 N MANUAL DIFF REQUIRED (test code = MDIFF) NO, ONLY SCAN NEEDED DIFFERENTIAL [id number] 09:13:00* Test Item Value Reference Range Interpretation Comments STAIN ACCEPTABILITY (test code = STN ACCEPTABLE) CABOT RINGS (test code = CAB) MORPHOLOGY COMMENT (test code = MOC) PLATELET ESTIMATE (test code = PLTEST) PLATELET MORPHOLOGY (test code = PLTMORPH) CBC W/AUTO [id number] 09:13:00* Test Item Value Reference Range Interpretation Comments WHITE BLOOD CELL (test code = WBC) 15.0 K/mm3 4.5-12.5 H RED BLOOD CELL (test code = RBC) 4.36 mill/mm3 3.7-5.2 N HEMOGLOBIN (test code = HGB) 12.3 gram/dL 11.5-15.5 N HEMATOCRIT (test code = HCT) 38.4 % 36.0-46.0 N MEAN CELL VOLUME (test code = MCV) 88.1 fL 80-98 N MEAN CELL HGB (test code = MCH) 28.2 picogram 27.0-33.0 N MEAN CELL HGB CONCETRATION (test code = MCHC) 32.0 gram/dL 33.0-36. 0 L RED CELL DISTRIBUTION WIDTH (test code = RDW) 20.3 % 11.6-16. 2 H RED CELL DISTRIBUTION WIDTH SD (test code = RDW-SD) 62.8 fL 37 .0-51.0 H PLATELET COUNT (test code = PLT) 317 K/mm3 150-450 N MEAN PLATELET VOLUME (test code = MPV) 10.6 fL 6.7-11.0 N NEUTROPHIL % (test code = NT%) 83.3 % 39.0-69.0 H IMMATURE GRANULOCYTE % (test code = IG%) 0.7 % 0.0-5.0 N LYMPHOCYTE % (test code = LY%) 4.3 % 25.0-55.0 L MONOCYTE % (test code = MO%) 11.4 % 0.0-10.0 H EOSINOPHIL % (test code = EO%) 0.0 % 0.0-5.0 N BASOPHIL % (test code = BA%) 0.3 % 0.0-1.0 N NUCLEATED RBC % (test code = NRBC%) 0.0 % 0-0 N NEUTROPHIL # (test code = NT#) 12.50 K/mm3 1.8-7.7 H IMMATURE GRANULOCYTE # (test code = IG#) 0.10 x10 3/uL 0-0.03 H LYMPHOCYTE # (test code = LY#) 0.64 K/mm3 1.0-5.0 L MONOCYTE # (test code = MO#) 1.71 K/mm3 0-0.8 H EOSINOPHIL # (test code = EO#) 0.00 K/mm3 0.0-0.5 N BASOPHIL # (test code = BA#) 0.04 K/mm3 0.0-0.2 N NUCLEATED RBC # (test code = NRBC#) 0.00 K/mm3 0.0-0.1 N MANUAL DIFF REQUIRED (test code = MDIFF) NO, ONLY SCAN NEEDED DIFFERENTIAL [id number] 09:13:00* Test Item Value Reference Range Interpretation Comments STAIN ACCEPTABILITY (test code = STN ACCEPTABLE) MORPHOLOGY COMMENT (test code = MOC) PLATELET ESTIMATE (test code = PLTEST) PLATELET MORPHOLOGY (test code = PLTMORPH) CBC W/AUTO [id number] 09:13:00* Test Item Value Reference Range Interpretation Comments WHITE BLOOD CELL (test code = WBC) 15.0 K/mm3 4.5-12.5 H RED BLOOD CELL (test code = RBC) 4.36 mill/mm3 3.7-5.2 N HEMOGLOBIN (test code = HGB) 12.3 gram/dL 11.5-15.5 N HEMATOCRIT (test code = HCT) 38.4 % 36.0-46.0 N MEAN CELL VOLUME (test code = MCV) 88.1 fL 80-98 N MEAN CELL HGB (test code = MCH) 28.2 picogram 27.0-33.0 N MEAN CELL HGB CONCETRATION (test code = MCHC) 32.0 gram/dL 33.0-36. 0 L RED CELL DISTRIBUTION WIDTH (test code = RDW) 20.3 % 11.6-16. 2 H RED CELL DISTRIBUTION WIDTH SD (test code = RDW-SD) 62.8 fL 37 .0-51.0 H PLATELET COUNT (test code = PLT) 317 K/mm3 150-450 N MEAN PLATELET VOLUME (test code = MPV) 10.6 fL 6.7-11.0 N NEUTROPHIL % (test code = NT%) 83.3 % 39.0-69.0 H IMMATURE GRANULOCYTE % (test code = IG%) 0.7 % 0.0-5.0 N LYMPHOCYTE % (test code = LY%) 4.3 % 25.0-55.0 L MONOCYTE % (test code = MO%) 11.4 % 0.0-10.0 H EOSINOPHIL % (test code = EO%) 0.0 % 0.0-5.0 N BASOPHIL % (test code = BA%) 0.3 % 0.0-1.0 N NUCLEATED RBC % (test code = NRBC%) 0.0 % 0-0 N NEUTROPHIL # (test code = NT#) 12.50 K/mm3 1.8-7.7 H IMMATURE GRANULOCYTE # (test code = IG#) 0.10 x10 3/uL 0-0.03 H LYMPHOCYTE # (test code = LY#) 0.64 K/mm3 1.0-5.0 L MONOCYTE # (test code = MO#) 1.71 K/mm3 0-0.8 H EOSINOPHIL # (test code = EO#) 0.00 K/mm3 0.0-0.5 N BASOPHIL # (test code = BA#) 0.04 K/mm3 0.0-0.2 N NUCLEATED RBC # (test code = NRBC#) 0.00 K/mm3 0.0-0.1 N MANUAL DIFF REQUIRED (test code = MDIFF) NO, ONLY SCAN NEEDED DIFFERENTIAL [id number] 09:13:00* Test Item Value Reference Range Interpretation Comments STAIN ACCEPTABILITY (test code = STN ACCEPTABLE) CABOT RINGS (test code = CAB) MORPHOLOGY COMMENT (test code = MOC) PLATELET ESTIMATE (test code = PLTEST) PLATELET MORPHOLOGY (test code = PLTMORPH) CBC W/AUTO [id number] 09:09:00* Test Item Value Reference Range Interpretation Comments WHITE BLOOD CELL (test code = WBC) K/mm3 4.5-12.5 RED BLOOD CELL (test code = RBC) mill/mm3 3.7-5.2 HEMOGLOBIN (test code = HGB) 12.3 gram/dL 11.5-15.5 N HEMATOCRIT (test code = HCT) 38.4 % 36.0-46.0 N MEAN CELL VOLUME (test code = MCV) fL 80-98 MEAN CELL HGB (test code = MCH) picogram 27.0-33.0 MEAN CELL HGB CONCETRATION (test code = MCHC) gram/dL 33.0-36. 0 RED CELL DISTRIBUTION WIDTH (test code = RDW) % 11.6-16. 2 RED CELL DISTRIBUTION WIDTH SD (test code = RDW-SD) fL 37 .0-51.0 PLATELET COUNT (test code = PLT) K/mm3 150-450 MEAN PLATELET VOLUME (test code = MPV) fL 6.7-11.0 NEUTROPHIL % (test code = NT%) % 39.0-69.0 IMMATURE GRANULOCYTE % (test code = IG%) % 0.0-5.0 LYMPHOCYTE % (test code = LY%) % 25.0-55.0 MONOCYTE % (test code = MO%) % 0.0-10.0 EOSINOPHIL % (test code = EO%) % 0.0-5.0 BASOPHIL % (test code = BA%) % 0.0-1.0 NEUTROPHIL # (test code = NT#) K/mm3 1.8-7.7 LYMPHOCYTE # (test code = LY#) K/mm3 1.0-5.0 MONOCYTE # (test code = MO#) K/mm3 0-0.8 EOSINOPHIL # (test code = EO#) K/mm3 0.0-0.5 BASOPHIL # (test code = BA#) K/mm3 0.0-0.2 [id number] 05:15:00* Test Item Value Reference Range Interpretation Comments GLUBED (test code = GLUBED) 120 mg/dL 74-106 H Performed by certified matrix bath operator at [facility] ARTERIAL BLOOD [id number] 04:59:00* Test Item Value Reference Range Interpretation Comments ARTERIAL BLOOD GAS PH (test code = PHA) 7.55 7.35-7.45 H Results called to and read back by samuel 04:59 - 10/10/2018; by jason ARTERIAL BLOOD GAS PCO2 (test code = PCO2A) 32.7 mm Hg 35-45 L ARTERIAL BLOOD GAS PO2 (test code = PO2A) 188.6 mmHg 80-100 H BICARBONATE TOTAL HCO3 (test code = HCO3) 28.0 mmol/L 23.0-27.0 H BASE EXCESS (test code = KYLE) 5.9 mmol/L -3.0-5.0 H ABG O2 SATURATION (test code = SATA) 98.8 % 90.0-98.0 H ABG TYPE (test code = TYPEA) Arterial FIO2 (test code = FIO2A) 40.0 ABG VENT MODE (test code = MODEA) CPAP ABG PEEP (test code = PEEPA) 5.0 cmH2O ABG PRESSURE SUPPORT (test code = PSABG) 8 cmH2O ABG SITE (test code = SITEA) Rt RADIAL ARTERY MODIFIED ALLENS (test code = MODALL) Yes CHECK PERFORMED SODIUM (test code = NA/ABG) 133.4 mEq/L 135-148 L POTASSIUM (test code = K/ABG) 3.6 mEq/L 3.5-4.5 N CHLORIDE (test code = CL/ABG) 91 mEq/L 98-106 L GLUCOSE (test code = GLU/ABG) 137 mg/dL 74-99 H HEMATOCRIT (test code = HCT/ABG) 41 % 35-47 N IONIZED CALCIUM (test code = CAIABG) 1.07 mmol/L 1.1-1.37 L TOTAL HGB (test code = THB) 13.8 gram/dL 11.5-15.5 N HGB O2 SAT (test code = HBOSAT) 97.9 % 94.00-98.00 N CARBOXYHEMOGLOBIN (test code = HOHGBT) 0.8 %totalHg 0.5-1.5 N METHEMOGLOBIN (test code = METHGB) 0.1 % 0.0-1.50 N O2 CONTENT (test code = O2CT) 19.4 % vol 18.0-22.0 N BASIC METABOLIC [id number] 00:01:00* Test Item Value Reference Range Interpretation Comments SODIUM (test code = NA) 132 mmol/L 136-145 L RESU LT VERIFIED BY REPEAT ANALYSIS POTASSIUM (test code = K) 3.8 mmol/L 3.5-5.1 N CHLORIDE (test code = CL) 90.0 mmol/L 98-107 L CARBON DIOXIDE (test code = CO2) 29.0 mmol/L 21-32 N ANION GAP (test code = GAP) 16.8 10-20 N GLUCOSE (test code = GLU) 92 mg/dL 74-106 N BLOOD UREA NITROGEN (test code = BUN) 19 mg/dL 7-18 H RESULT VERIFIED BY REPEAT ANALYSIS GLOMERULAR FILTRATION RATE (test code = GFR) 12 mL/min >=60 Estimated GFR by using Modified MDRD formula.Chronic kidney disease is defined as either kidney damageor GFR <60 mL/min/1.73 m2 for >3 months. CREATININE (test code = CREAT) 3.70 mg/dL 0.55-1.02 H Note change in reference range due to change in reagent. BUN/CREATININE RATIO (test code = BUN/CREA) 5.1 10-20 L CALCIUM (test code = CA) 8.5 mg/dL 8.5-10.1 N [id number] 00:01:00* Test Item Value Reference Range Interpretation Comments PHOSPHORUS (test code = PHOS) 3.4 mg/dL 2.5-4.9 N [id number] 00:01:00* Test Item Value Reference Range Interpretation Comments MAGNESIUM (test code = MAG) 2.2 mg/dL 1.8-2.4 N CALCIUM [id number] 00:01:00* Test Item Value Reference Range Interpretation Comments CALCIUM IONIZED (test code = GRIFFIN) 1.15 mmol/L 1.12-1.32 N BASIC METABOLIC [id number] 23:32:00* Test Item Value Reference Range Interpretation Comments SODIUM (test code = NA) mmol/L 136-145 POTASSIUM (test code = K) mmol/L 3.5-5.1 CHLORIDE (test code = CL) mmol/L 98-107 CARBON DIOXIDE (test code = CO2) mmol/L 21-32 ANION GAP (test code = GAP) 10-20 GLUCOSE (test code = GLU) mg/dL 74-106 BLOOD UREA NITROGEN (test code = BUN) mg/dL 7-18 GLOMERULAR FILTRATION RATE (test code = GFR) mL/min >=60 CREATININE (test code = CREAT) mg/dL 0.55-1.02 BUN/CREATININE RATIO (test code = BUN/CREA) 10-20 CALCIUM (test code = CA) mg/dL 8.5-10.1 [id number] 23:32:00* Test Item Value Reference Range Interpretation Comments PHOSPHORUS (test code = PHOS) mg/dL 2.5-4.9 [id number] 23:32:00* Test Item Value Reference Range Interpretation Comments MAGNESIUM (test code = MAG) mg/dL 1.8-2.4 CALCIUM [id number] 23:32:00* Test Item Value Reference Range Interpretation Comments CALCIUM IONIZED (test code = GRIFFIN) 1.15 mmol/L 1.12-1.32 N - XR CHEST 1 [id number] 23:13:00 FAX: Ravin Toledo MD [phone] [place]: St: ADM FAX: Eliad Sanches NP [phone] FAX: Harsh Rodrgiez MD [phone] Name: VIVEK LÓPEZ [facility] : 1940 Age/S: 78/F [address] [facility] Unit #: [id number] Loc: V.S22 [place] [address] Phys: Elida Sanches NP Acct: [id number] Dis Date: Status: ADM IN ONE #: [phone] Exam Date: 10/09/20182302 FAX #: [phone] Reason: sob EXAMS: CPT CODE: [id number] XR CHEST 1 V 27713 AFTER HOURS SE RVICE ON: 10/09/2018 11:11 PM AP Portable Chest Locati on Code M12 HISTORY: sob FINDINGS: 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 Cardiac silhouette is within normal pelletier its. There is mild central vascular congestion. Study is limited due to shallow inspiration. There are decreasing infiltrates in the right lung b ase compared to the prior of 11 hours ago.. There is no pneumothorax. NG T is in the stomach. There is an ETT located 2 cm above the ryan. IMPRESSION: Decreasing right basilar alveolar infi ltrates. Mild central vascular congestion. Electronic ally Signed by Reynaldo Barron M.D. on 9 at 2313 Reported and signed by: Reynaldo Barron M.D. CC: Ravin Toledo MD; Elida Sanches NP; Harsh Murphy Technologist: Cammie Claire Trnscrd Date/Time/By: 10/09/2018 (0445) : By: [email or web address] Orig Print D/ T: S: 10/09/2018 (9466) PAGE 1 Si gned Report - XR CHEST 1 [id number] 23:13:00 FAX: Ravin Toledo MD [phone] [facility]: St: ADM FAX: Elida Sanches NP [phone] FAX: Harsh Rodrigez MD --------- Name: VIVEK FINNEY [facility] : 1940 Age/S: 78/F [address] it #: [id number] Loc: V.S22 [place] [address] Phys: Elida Sanches NP Acct: [id number] Dis Date: Status: ADM IN ONE #: [phone] Exam Date: 10/09/2018 2303 FAX #: [phone] Reason: sob EXAMS: CPT CODE: [id number] XR CHEST 1 V [id number] AFTER HOURS SE RVICE ON: 10/09/2018 11:11 PM AP Portable Chest Locati on Code M12 HISTORY: sob FINDINGS: 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 Cardiac silhouette is within normal pelletier its. There is mild central vascular congestion. Study is limited due to shallow inspiration. There are decreasing infiltrates in the right lung b ase compared to the prior of 11 hours ago.. There is no pneumothorax. NG T is in the stomach. There is an ETT located 2 cm above the ryan. IMPRESSION: Decreasing right basilar alveolar infi ltrates. Mild central vascular congestion. Electronic ally Signed by Reynaldo Barron M.D. on 9 at 2313 Reported and signed by: Reynaldo Barron M.D. CC: Ravin Toledo MD; Elida Sanches NP; Harsh Murphy Technologist: Cammie Claire Trnscrd Date/Time/By: 10/09/2018 (4023) : By: [email or web address] Orig Print D/ T: S: 10/09/2018 (3666) PAGE 1 Si gned Report [id number] 20:27:00* Test Item Value Reference Range Interpretation Comments GLUBED (test code = GLUBED) 144 mg/dL 74-106 H Performed by certified matrix bath operator at [facility] LACTIC [id number] 16:53:00* Test Item Value Reference Range Interpretation Comments LACTIC ACID (test code = LACT) 1.3 mmol/L 0.4-1.9 N [id number] 16:35:00* Test Item Value Reference Range Interpretation Comments GLUBED (test code = GLUBED) 241 mg/dL 74-106 H Performed by certified matrix bath operator at [facility] AG HEPAT B [id number] 16:10:00* Test Item Value Reference Range Interpretation Comments AG HEPAT B SURF (test code = HBSAG) Nonreactive Index Nonreactive - CT ABD PELVIS [id number] 14:31:00 Name: VIVEK LÓPEZ [facility] : 1940 Age/S: 78 / F [address] [facility] Unit #: [id number] Loc: [place] [address] Phys: Salvatore Means MD Acct: [id number] Dis Date: Status: ADM IN PHONE #: [phone] Exam Date: 10/09/2018 1342 FAX #: [phone] Reason: Abdominal pain EXAMS: CPT CODE: [id number] CT ABD PELVIS W/CONT 72517 REASON FOR EXAM: Abdominal pain EXAM ORDER DATE: 10/09/2018 9:14 AM Ordering MLizabeth: Salvatore Means MD PROCEDURE: - CT ABD PELVIS W/CONT contrast-enhanced axial CT images were acquired through the abdomen/pelvis at 5 mm intervals. Sagittal and coronal reformatted images were generated. Automated exposure control was utilized for this reduction. Phases of contrast: venous and delayed COMPARISON: Noncontrast CT of the abdomen and pelvis September 26, 2012 FINDINGS: Visualized thorax: Interlobular septal thickening and groundglass opacities are present in the lung bases, more pronounced on the right side. There are also small pleural effusions bilaterally, more pronounced on the right side. Hepatobiliary system: Liver is grossly unremarkable. Prior cholecystectomy. Pancreas: Atrophic. Spleen: Normal Adrenal glands: Normal Genitourinary system: Atrophic bilaterally. Simple appearing cortical cysts are present in the right k idney. Multiple calcified fibroids are present in the uterus. Urinary blad owen is distended but otherwise within normal limits. Gastroi ntestinal tract and appendix: No abnormal luminal distention. No abnormal mural thickening. Abdominal vascular structures: Atherosclerotic d isease is scattered throughout the abdominal aorta and extends into the il iac arteries and mesenteric vessels. Peritoneum and retroper itoneum: No free air. No pathologic fluid collections. No omental or mesen teric masses. No abnormal lymph PAGE 1 Signed Report (CONTINUED) Name: VIVEK LÓPEZ [facility] [place] : 1940 Age/S: 78 / F [address] [facility] Unit #: [id number] Loc: [place], [place] [address] Phys: Salvatore Means MD Acct: [id number] Dis Date: Status: ADM IN PHONE #: [phone] Exam Date: 10/09/2018 1342 FAX #: [phone] Reason: Abdominal pain EXAMS: CPT CODE: [id number] CT ABD PELVIS W/CONT 07461 < Continued> nodes. Musculoskeletal structures and abdominal wall: Fat-containing infraumbilical midline hernia with a neck measuring up to 4.5 cm. Degenerative changes are scattered throughout the spine. Patient has anasarca. Postsurgical changes of left femoral fracture repair. Degenerative changes are present in the symphysis. There appears to be a hematoma in the left gluteal muscles that measures more than 5 cm in diameter. This is incompletely evaluated. IMPRESSION: No acute intra-abdominal process. Postsurgical changes of left femoral fracture repair. There is a hematoma in the adjacent soft tissues which is incompletely evaluated. Interlobular septal thickening with groundglass opacities may represent pulmonary edema. Superimposed infection would be difficult to exclude. Given the presence of orthopedic intervention, a fat embolus cannot be excluded. Fat- containing infraumbilical ventral hernia. at 1431 Reported and signed by: Navin Butt MD CC: Salvatore Means MD Technologist:Alexander Mccullough RT(R),(MR),(CT) CTDI: DLP: Trnscb Date/Time: 10/09/2018 (1431) [email or web address] Orig Print D/T: S: 10/09/2018 (7272) PAGE 2 Signed Report - CT ABD PELVIS [id number] 14:31:00 Name: VIVEK FINNEY [facility] : 1940 Age/S: 78 / F [address] [facility] Unit #: [id number] Loc: [place] [address] Phys: Kirti Means MD Acct: [id number] Di s Date: Status: ADM IN PHONE #: [phone] Exam Date: 10/09/2018 1342 FAX #: [phone] Reason: Abdominal pain EXAMS: CPT CODE: [id number] CT ABD PELVIS W/CONT 28143 REASON FOR EXAM: Abdominal pain EXAM ORDER DATE: 10/09/2018 9:14 AM Ordering M. D.: Salvatore Means MD PROCEDURE: - CT ABD PELVIS W/CONT contrast-e nhanced axial CT images were acquired through the abdomen/pelvis at 5 mm i ntervals. Sagittal and coronal reformatted images were generated. Automa bao exposure control was utilized for this reduction. Phases of contrast: venous and delayed COMPARISON: Noncontrast CT of the abdomen and pelvis September 26, 2012 FINDINGS: Visua lized thorax: Interlobular septal thickening and groundglass opacities are present in the lung bases, more pronounced on the right side. There are a lso small pleural effusions bilaterally, more pronounced on the right side . Hepatobiliary system: Liver is grossly unremarkable. Prior cholecystectomy. Pancreas: Atrophic. Spleen: Normal Adrenal glands: Normal Genitourinary system: Atrophic bilaterally. Simple appearing cortical cysts are present in the right k idney. Multiple calcified fibroids are present in the uterus. Urinary blad owen is distended but otherwise within normal limits. Gastroi ntestinal tract and appendix: No abnormal luminal distention. No abnormal mural thickening. Abdominal vascular structures: Atherosclerotic d isease is scattered throughout the abdominal aorta and extends into the il iac arteries and mesenteric vessels. Peritoneum and retroper itoneum: No free air. No pathologic fluid collections. No omental or mesen teric masses. No abnormal lymph PAGE 1 Signed Report (CONTINUED) Name: VIVEK FINNEY [facility] [place] : 1940 Age/S: 78 / F [address] [facility] Unit #: [id number] Loc: [place] [address] Phys: Salvatore Means MD Acct: [id number] Dis Date: Status: ADM IN PHONE #: [phone] Exam Date: 10/09/2018 1342 FAX #: [phone] Reason: Abdominal pain EXAMS: CPT CODE: [id number] CT ABD PELVIS W/CONT 76166 < Continued> nodes. Musculoskeletal structures and abdominal wall: Fat-containing infraumbilical midline hernia with a neck measuring up to 4.5 cm. Degenerative changes are scattered throughout the spine. Patient has anasarca. Postsurgical changes of left femoral fracture repair. Degenerative changes are present in the symphysis. There appears to be a hematoma in the left gluteal muscles that measures more than 5 cm in diameter. This is incompletely evaluated. IMPRESSION: No acute intra-abdominal process. Postsurgical changes of left femoral fracture repair. There is a hematoma in the adjacent soft tissues which is incompletely evaluated. Interlobular septal thickening with groundglass opacities may represent pulmonary edema. Superimposed infection would be difficult to exclude. Given the presence of orthopedic intervention, a fat embolus cannot be excluded. Fat- containing infraumbilical ventral hernia. at 1431 Reported and signed by: Navin Butt MD CC: Salvatore Means MD Technologist:Alexander Mccullough RT(R),(MR),(CT) CTDI: DLP: Trnscb Date/Time: 10/09/2018 (1431) Antonio.[email or web address] Orig Print D/T: S: 10/09/2018 (7669) PAGE 2 Signed Report - CT HEAD/BRAIN W/O [id number] 14:21:00 Name: VIVEK LÓPEZ [facility] : 1940 Age/S: 78 / F [address] [facility] #: [id number] Loc: [place] [address] Phys: Kirti Means MD Acct: [id number] Di s Date: Status: ADM IN PHONE #: Exam Date: 10/09/2018 1342 FAX #: Reason: AMS EXAMS: CPT CODE: [id number] CT HEAD/BRAIN W/O CONT 18438 HISTORY: AMS TECHNIQUE: Noncontrast 2.[address] of the head. Examination acquired within 24 hours of arrival. Automated exposure control for dose reduction. COMPARISON: None FINDINGS: No lacer ations or contusions of the scalp or facial soft tissues.. Calvarium and skull base are intact. No acute hemorrhage. No intracranial mass, mass effect, or midline shift. No effacement of the sulci or muhammad-white ma tter interface to suggest acute infarct. There is diffuse c ortical atrophy. There is also decreased attenuation of the periventricula r white matter compatible with microvascular ischemic changes. No hydrocephalus.. No extra-axial fluid collection. Visualized paranasal sinuses are clear. Mastoid air cells and middle ear cavities a re clear. Prior lens extraction bilaterally. IMP RESSION: No acute intracranial process. Diffuse cortic al atrophy and microvascular ischemic changes of the white matter. at 1421 Reported and signed by: Navin Butt MD CC: Ravin Toledo MD; Harsh Gan; Salvatore Means MD Technologist:Alexander Mccullough RT(R),(MR),(CT) CTDI: DLP: Trnscb Date/Time: 10/09/2018 (1421) [email or web address] Orig Print D/T: S: 10/09/2018 (8229) PAGE 1 Signed Report - CT HEAD/BRAIN W/O CONT 2018-10-09 14:21:00 Name: VIVEK FINNEY [facility] : 1940 Age/S: 78 / F Misa Schmid Unit #: [id number] Loc: [place] [address] Phys: Salvatore Means MD Acct: [id number] Dis Date: Status: ADM IN PHONE #: [phone] Exam Date: 10/09/2018 1342 FAX #: [phone] Reason: AMS EXAMS: CPT CODE: [id number] CT HEAD/BRAIN W/O CONT 07363 HISTORY: AMS TECHNIQUE: Noncontrast 2.[address] of the head. Examination acquired within 24 hours of arrival. Automated exposure control for dose reduction. COMPARISON: None FINDINGS: No lacerations or contusions of the scalp or facial soft tissues.. Calvarium and skull base are intact. No acute hemorrhage. No intracranial mass, mass effect, or midline shift. No effacement of the sulci or muhammad-white matter interface to suggest acute infarct. There is diffuse cortical atrophy. There is also decreased attenuation of the periventricular white matter compatible with microvascular ischemic changes. No hydrocephalus.. No extra- axial fluid collection. Visualized paranasal sinuses are clear. Mastoid air cells and middle ear cavities are clear. Prior lens extraction bilaterally. IMPRESSION: No acute intracranial process. Diffuse cortical atrophy and microvascular ischemic changes of the white matter. at 1421 Reported and signed by: Navin Butt MD CC: Ravin Toledo MD; Harsh Gan; Salvatore Means MD Technologist:Alexander Mccullough RT(R),(MR),(CT) CTDI: DLP: Trnscb Date/Time: 10/09/2018 (1421) [email or web address] Orig Print D/T: S: 10/09/2018 (8460) PAGE 1 Signed Report PROCALCITONIN (PCT)2018-10-09 13:44:00* Test Item Value Reference Range Interpretation Comments PROCALCITONIN (PCT) (test code = PROCAL) 0.36 ng/ml Concentration Interpretation (ng/mL) <0.51 Sepsis is not likely. Local bacterial infection is possible. (LOW RISK for progression to Sepsis) 0.51 - 2.00 Sepsis is possible, but other conditions are known to elevate PCT as well. (MODERATE RISK for progression to Sepsis) > 2.00 Sepsis is likely, unless other causes are known. (HIGH RISK for progression to Severe Sepsis or Septic Shock) 10.00 High likelihood of Severe Sepsis or Septic or higher Shock. *Increased PCT levels may not always be related to systemic bacterial infection.*Low PCT levels do not automatically exclude the presence of bacterial infection.*All results should be interpreted taking into account the patients history. LACTIC [id number] 13:31:00* Test Item Value Reference Range Interpretation Comments LACTIC ACID (test code = LACT) 3.0 mmol/L 0.4-1.9 HH Results called to [id number] by SANDRA 10/09/18 1331Critical results verified and read back by Nurse? Y BASIC METABOLIC [id number] 13:31:00* Test Item Value Reference Range Interpretation Comments SODIUM (test code = NA) 125 mmol/L 136-145 L POTASSIUM (test code = K) 4.2 mmol/L 3.5-5.1 N CHLORIDE (test code = CL) 86.0 mmol/L 98-107 L CARBON DIOXIDE (test code = CO2) 19.0 mmol/L 21-32 L ANION GAP (test code = GAP) 24.2 10-20 H GLUCOSE (test code = GLU) 275 mg/dL 74-106 H BLOOD UREA NITROGEN (test code = BUN) 36 mg/dL 7-18 H GLOMERULAR FILTRATION RATE (test code = GFR) 8 mL/min >=60 Estimated GFR by using Modified MDRD formula.Chronic kidney disease is defined as either kidney damageor GFR <60 mL/min/1.73 m2 for >3 months. CREATININE (test code = CREAT) 5.40 mg/dL 0.55-1.02 H Note change in reference range due to change in reagent. BUN/CREATININE RATIO (test code = BUN/CREA) 6.6 10-20 L CALCIUM (test code = CA) 8.8 mg/dL 8.5-10.1 N [id number] 13:31:00* Test Item Value Reference Range Interpretation Comments PHOSPHORUS (test code = PHOS) 5.0 mg/dL 2.5-4.9 H [id number] 13:31:00* Test Item Value Reference Range Interpretation Comments MAGNESIUM (test code = MAG) 2.4 mg/dL 1.8-2.4 N CALCIUM [id number] 13:31:00* Test Item Value Reference Range Interpretation Comments CALCIUM IONIZED (test code = GRIFFIN) 1.09 mmol/L 1.12-1.32 L BASIC METABOLIC [id number] 13:28:00* Test Item Value Reference Range Interpretation Comments SODIUM (test code = NA) 125 mmol/L 136-145 L POTASSIUM (test code = K) 4.2 mmol/L 3.5-5.1 N CHLORIDE (test code = CL) 86.0 mmol/L 98-107 L CARBON DIOXIDE (test code = CO2) mmol/L 21-32 ANION GAP (test code = GAP) 10-20 GLUCOSE (test code = GLU) mg/dL 74-106 BLOOD UREA NITROGEN (test code = BUN) mg/dL 7-18 GLOMERULAR FILTRATION RATE (test code = GFR) mL/min >=60 CREATININE (test code = CREAT) mg/dL 0.55-1.02 BUN/CREATININE RATIO (test code = BUN/CREA) 10-20 CALCIUM (test code = CA) mg/dL 8.5-10.1 [id number] 13:28:00* Test Item Value Reference Range Interpretation Comments PHOSPHORUS (test code = PHOS) mg/dL 2.5-4.9 [id number] 13:28:00* Test Item Value Reference Range Interpretation Comments MAGNESIUM (test code = MAG) mg/dL 1.8-2.4 CALCIUM [id number] 13:28:00* Test Item Value Reference Range Interpretation Comments CALCIUM IONIZED (test code = GRIFFIN) 1.09 mmol/L 1.12-1.32 L BASIC METABOLIC [id number] 13:20:00* Test Item Value Reference Range Interpretation Comments SODIUM (test code = NA) mmol/L 136-145 POTASSIUM (test code = K) mmol/L 3.5-5.1 CHLORIDE (test code = CL) mmol/L 98-107 CARBON DIOXIDE (test code = CO2) mmol/L 21-32 ANION GAP (test code = GAP) 10-20 GLUCOSE (test code = GLU) mg/dL 74-106 BLOOD UREA NITROGEN (test code = BUN) mg/dL 7-18 GLOMERULAR FILTRATION RATE (test code = GFR) mL/min >=60 CREATININE (test code = CREAT) mg/dL 0.55-1.02 BUN/CREATININE RATIO (test code = BUN/CREA) 10-20 CALCIUM (test code = CA) mg/dL 8.5-10.1 [id number] 13:20:00* Test Item Value Reference Range Interpretation Comments PHOSPHORUS (test code = PHOS) mg/dL 2.5-4.9 [id number] 13:20:00* Test Item Value Reference Range Interpretation Comments MAGNESIUM (test code = MAG) mg/dL 1.8-2.4 CALCIUM [id number] 13:20:00* Test Item Value Reference Range Interpretation Comments CALCIUM IONIZED (test code = GRIFFIN) 1.09 mmol/L 1.12-1.32 L CBC W/AUTO [id number] 13:12:00* Test Item Value Reference Range Interpretation Comments WHITE BLOOD CELL (test code = WBC) 20.8 K/mm3 4.5-12.5 H RED BLOOD CELL (test code = RBC) 4.84 mill/mm3 3.7-5.2 N HEMOGLOBIN (test code = HGB) 13.6 gram/dL 11.5-15.5 N HEMATOCRIT (test code = HCT) 42.3 % 36.0-46.0 N MEAN CELL VOLUME (test code = MCV) 87.4 fL 80-98 N MEAN CELL HGB (test code = MCH) 28.1 picogram 27.0-33.0 N MEAN CELL HGB CONCETRATION (test code = MCHC) 32.2 gram/dL 33.0-36. 0 L RED CELL DISTRIBUTION WIDTH (test code = RDW) 20.0 % 11.6-16. 2 H RED CELL DISTRIBUTION WIDTH SD (test code = RDW-SD) 62.3 fL 37 .0-51.0 H PLATELET COUNT (test code = PLT) 302 K/mm3 150-450 N MEAN PLATELET VOLUME (test code = MPV) 10.3 fL 6.7-11.0 N NEUTROPHIL % (test code = NT%) 92.8 % 39.0-69.0 H IMMATURE GRANULOCYTE % (test code = IG%) 0.9 % 0.0-5.0 N LYMPHOCYTE % (test code = LY%) 0.7 % 25.0-55.0 L MONOCYTE % (test code = MO%) 5.4 % 0.0-10.0 N EOSINOPHIL % (test code = EO%) 0.0 % 0.0-5.0 N BASOPHIL % (test code = BA%) 0.2 % 0.0-1.0 N NUCLEATED RBC % (test code = NRBC%) 0.1 % 0-0 H NEUTROPHIL # (test code = NT#) 19.26 K/mm3 1.8-7.7 H IMMATURE GRANULOCYTE # (test code = IG#) 0.19 x10 3/uL 0-0.03 H LYMPHOCYTE # (test code = LY#) 0.14 K/mm3 1.0-5.0 L MONOCYTE # (test code = MO#) 1.13 K/mm3 0-0.8 H EOSINOPHIL # (test code = EO#) 0.00 K/mm3 0.0-0.5 N BASOPHIL # (test code = BA#) 0.05 K/mm3 0.0-0.2 N NUCLEATED RBC # (test code = NRBC#) 0.02 K/mm3 0.0-0.1 N MANUAL DIFF REQUIRED (test code = MDIFF) NO CBC W/AUTO [id number] 13:11:00* Test Item Value Reference Range Interpretation Comments WHITE BLOOD CELL (test code = WBC) K/mm3 4.5-12.5 RED BLOOD CELL (test code = RBC) mill/mm3 3.7-5.2 HEMOGLOBIN (test code = HGB) 13.6 gram/dL 11.5-15.5 N HEMATOCRIT (test code = HCT) 42.3 % 36.0-46.0 N MEAN CELL VOLUME (test code = MCV) fL 80-98 MEAN CELL HGB (test code = MCH) picogram 27.0-33.0 MEAN CELL HGB CONCETRATION (test code = MCHC) gram/dL 33.0-36. 0 RED CELL DISTRIBUTION WIDTH (test code = RDW) % 11.6-16. 2 RED CELL DISTRIBUTION WIDTH SD (test code = RDW-SD) fL 37 .0-51.0 PLATELET COUNT (test code = PLT) K/mm3 150-450 MEAN PLATELET VOLUME (test code = MPV) fL 6.7-11.0 NEUTROPHIL % (test code = NT%) % 39.0-69.0 IMMATURE GRANULOCYTE % (test code = IG%) % 0.0-5.0 LYMPHOCYTE % (test code = LY%) % 25.0-55.0 MONOCYTE % (test code = MO%) % 0.0-10.0 EOSINOPHIL % (test code = EO%) % 0.0-5.0 BASOPHIL % (test code = BA%) % 0.0-1.0 NEUTROPHIL # (test code = NT#) K/mm3 1.8-7.7 LYMPHOCYTE # (test code = LY#) K/mm3 1.0-5.0 MONOCYTE # (test code = MO#) K/mm3 0-0.8 EOSINOPHIL # (test code = EO#) K/mm3 0.0-0.5 BASOPHIL # (test code = BA#) K/mm3 0.0-0.2 VENOUS BLOOD [id number] 13:05:00* Test Item Value Reference Range Interpretation Comments IONIZED CALCIUM (test code = CAIABG) 0.99 mmol/L 1.1-1.37 L VENOUS BLOOD GAS PH (test code = PHV) 7.49 7.30-7.40 H VENOUS BLOOD GAS PCO2 (test code = PCO2V) 23.6 mm Hg 39.0-51.0 LL Results called to and read back by Justin 13:04 - 10/09/2018; by VIOLA VENOUS BLOOD GAS PO2 (test code = PO2V) 151.3 mm Hg 30.0-50.0 H VBG HCO3 (test code = HCO3V) 17.7 mmol/L 17.0-30.0 N VBG BASE EXCESS (test code = JOSE M) -3.5 mmol/L -5.0-5.0 N VENOUS BLOOD GAS O2 SAT. (test code = O2SATV) 99 % 94-98 H VENOUS BLOOD GAS FIO2 (test code = FIO2V) 50.0 VENOUS BLOOD GAS L/MIN (test code = L/MV) 45.00 L/min VBG VENT MODE (test code = MODEV) Assist Control JUNG. BLOOD GAS RESP. RATE (test code = RRV) 16.0 per min VBG TIDAL VOLUME (test code = TVV) 450.0 VENOUS BLOOD GAS PEEP (test code = PEEPV) 5.0 cmH2O PT. HGB (test code = PHGBVBG) 14.7 gram/dL 11.5-15.5 N VENOUS BLOOD GAS SITE (test code = SITEV) IVC SODIUM (test code = NA/VBG) 123.5 mEq/L 135-148 L POTASSIUM (test code = K/VBG) 4.5 mEq/L 3.4-4.4 H CHLORIDE (test code = CL/VBG) 87 mEq/L 98-106 L GLUCOSE (test code = GLU/VBG) 283 mg/dL 74-99 H HEMATOCRIT (test code = HCT/VBG) 43 % 42-52 N HGB O2 SAT (test code = HBOSAT) 97.3 % 94.00-98.00 N CARBOXYHEMOGLOBIN (test code = HOHGBT) 1.4 %totalHg 0.5-1.5 N METHEMOGLOBIN (test code = METHGB) 0.1 % 0.0-1.50 N BASIC METABOLIC [id number] 13:00:00* Test Item Value Reference Range Interpretation Comments SODIUM (test code = NA) 123 mmol/L 136-145 LL Resu lts called to [id number] by SANDRA 10/09/18 1259Critical results verified and read back by Nurse? Y POTASSIUM (test code = K) 4.4 mmol/L 3.5-5.1 N CHLORIDE (test code = CL) 85.0 mmol/L 98-107 L CARBON DIOXIDE (test code = CO2) 19.0 mmol/L 21-32 L ANION GAP (test code = GAP) 23.4 10-20 H GLUCOSE (test code = GLU) 221 mg/dL 74-106 H BLOOD UREA NITROGEN (test code = BUN) 34 mg/dL 7-18 H GLOMERULAR FILTRATION RATE (test code = GFR) 8 mL/min >=60 Estimated GFR by using Modified MDRD formula.Chronic kidney disease is defined as either kidney damageor GFR <60 mL/min/1.73 m2 for >3 months. CREATININE (test code = CREAT) 5.40 mg/dL 0.55-1.02 H Note change in reference range due to change in reagent. BUN/CREATININE RATIO (test code = BUN/CREA) 6.3 10-20 L CALCIUM (test code = CA) 9.2 mg/dL 8.5-10.1 N HEPATIC FUNCTION [id number] 13:00:00* Test Item Value Reference Range Interpretation Comments TOTAL PROTEIN (test code = PROT) 8.7 gram/dL 6.4-8.2 H ALBUMIN (test code = ALB) 3.9 g/dL 3.4-5.0 N GLOBULIN (test code = GLOB) 4.8 gram/dL 2.7-4.2 H ALBUMIN/GLOBULIN RATIO (test code = A/G) 0.8 0.75-1.50 N BILIRUBIN TOTAL (test code = BILT) 0.80 mg/dL 0.0-1.0 N BILIRUBIN DIRECT (test code = BILD) 0.25 mg/dL 0.0-0.20 H SGOT/AST (test code = AST) 21 IUnit/L 15-37 N SGPT/ALT (test code = ALT) 13 IUnit/L 12-78 N ALKALINE PHOSPHATASE TOTAL (test code = ALKP) 139 IUnit/L 45-117 H Note change in reference range due to change in reagent. [id number] 13:00:00* Test Item Value Reference Range Interpretation Comments LIPASE (test code = LIP) 71 U/L 73.0-393.0 L HCG SERUM [id number] 13:00:00* Test Item Value Reference Range Interpretation Comments HCG SERUM QUAL (test code = HCGQL) NEGATIVE NEGATIVE This HCGQL test is NOT applicable for MALE patients.Check with nurse about probable order error.If Tumor Marker Test needed, nurse should order test "HCGTU"(Test #550.88758) [id number] 13:00:00* Test Item Value Reference Range Interpretation Comments TROPONIN-I (test code = TROPI) 0.079 ng/mL 0-0.045 HH Results called to [id number] by SANDRA 10/09/18 1259Critical results verified and read back by Nurse? Y BASIC METABOLIC [id number] 12:54:00* Test Item Value Reference Range Interpretation Comments SODIUM (test code = NA) mmol/L 136-145 POTASSIUM (test code = K) mmol/L 3.5-5.1 CHLORIDE (test code = CL) mmol/L 98-107 CARBON DIOXIDE (test code = CO2) mmol/L 21-32 ANION GAP (test code = GAP) 10-20 GLUCOSE (test code = GLU) mg/dL 74-106 BLOOD UREA NITROGEN (test code = BUN) mg/dL 7-18 GLOMERULAR FILTRATION RATE (test code = GFR) mL/min >=60 CREATININE (test code = CREAT) mg/dL 0.55-1.02 BUN/CREATININE RATIO (test code = BUN/CREA) 10-20 CALCIUM (test code = CA) mg/dL 8.5-10.1 HEPATIC FUNCTION [id number] 12:54:00* Test Item Value Reference Range Interpretation Comments TOTAL PROTEIN (test code = PROT) gram/dL 6.4-8.2 ALBUMIN (test code = ALB) g/dL 3.4-5.0 GLOBULIN (test code = GLOB) gram/dL 2.7-4.2 ALBUMIN/GLOBULIN RATIO (test code = A/G) 0.75-1.50 BILIRUBIN TOTAL (test code = BILT) mg/dL 0.0-1.0 BILIRUBIN DIRECT (test code = BILD) mg/dL 0.0-0.20 SGOT/AST (test code = AST) IUnit/L 15-37 SGPT/ALT (test code = ALT) IUnit/L 12-78 ALKALINE PHOSPHATASE TOTAL (test code = ALKP) IUnit/L 45-117 [id number] 12:54:00* Test Item Value Reference Range Interpretation Comments LIPASE (test code = LIP) U/L 73.0-393.0 HCG SERUM [id number] 12:54:00* Test Item Value Reference Range Interpretation Comments HCG SERUM QUAL (test code = HCGQL) NEGATIVE NEGATIVE This HCGQL test is NOT applicable for MALE patients.Check with nurse about probable order error.If Tumor Marker Test needed, nurse should order test "HCGTU"(Test #550.35424) [id number] 12:54:00* Test Item Value Reference Range Interpretation Comments TROPONIN-I (test code = TROPI) ng/mL 0-0.045 CBC W/O [id number] 12:45:00* Test Item Value Reference Range Interpretation Comments WHITE BLOOD CELL (test code = WBC) 18.2 K/mm3 4.5-12.5 H RED BLOOD CELL (test code = RBC) 5.06 mill/mm3 3.7-5.2 N HEMOGLOBIN (test code = HGB) 14.4 gram/dL 11.5-15.5 N HEMATOCRIT (test code = HCT) 44.6 % 36.0-46.0 N MEAN CELL VOLUME (test code = MCV) 88.1 fL 80-98 N MEAN CELL HGB (test code = MCH) 28.5 picogram 27.0-33.0 N MEAN CELL HGB CONCETRATION (test code = MCHC) 32.3 gram/dL 33.0-36. 0 L RED CELL DISTRIBUTION WIDTH (test code = RDW) 20.5 % 11.6-16. 2 H PLATELET COUNT (test code = PLT) 334 K/mm3 150-450 N MEAN PLATELET VOLUME (test code = MPV) 11.1 fL 6.7-11.0 H ARTERIAL BLOOD [id number] 12:00:00* Test Item Value Reference Range Interpretation Comments ARTERIAL BLOOD GAS PH (test code = PHA) 7.40 7.35-7.45 N ARTERIAL BLOOD GAS PCO2 (test code = PCO2A) 30.8 mm Hg 35-45 L ARTERIAL BLOOD GAS PO2 (test code = PO2A) 334.4 mmHg 80-100 H BICARBONATE TOTAL HCO3 (test code = HCO3) 18.7 mmol/L 23.0-27.0 L BASE EXCESS (test code = KYLE) -4.8 mmol/L -3.0-5.0 LL Results called to and read back by Herminia 12:00 - 10/09/2018; by Viola NICHOLE O2 SATURATION (test code = SATA) 99.6 % 90.0-98.0 H ABG TYPE (test code = TYPEA) Arterial FIO2 (test code = FIO2A) 70.0 ABG VENT MODE (test code = MODEA) Assist Control ABG VENT RESP RATE (test code = RRA) 16.0 per min ABG TIDAL VOLUME (test code = TVA) 450.0 mL ABG PEEP (test code = PEEPA) 5.0 cmH2O ABG SITE (test code = SITEA) Rt RADIAL ARTERY MODIFIED ALLENS (test code = MODALL) Yes CHECK PERFORMED SODIUM (test code = NA/ABG) 125.7 mEq/L 135-148 L POTASSIUM (test code = K/ABG) 4.1 mEq/L 3.5-4.5 N CHLORIDE (test code = CL/ABG) 85 mEq/L 98-106 L GLUCOSE (test code = GLU/ABG) 284 mg/dL 74-99 H HEMATOCRIT (test code = HCT/ABG) 43 % 35-47 N IONIZED CALCIUM (test code = CAIABG) 1.07 mmol/L 1.1-1.37 L TOTAL HGB (test code = THB) 14.6 gram/dL 11.5-15.5 N HGB O2 SAT (test code = HBOSAT) 98.1 % 94.00-98.00 H CARBOXYHEMOGLOBIN (test code = HOHGBT) 1.3 %totalHg 0.5-1.5 N METHEMOGLOBIN (test code = METHGB) 0.2 % 0.0-1.50 N O2 CONTENT (test code = O2CT) 21.0 % vol 18.0-22.0 N - XR CHEST 1 [id number] 11:38:00 FAX: Harsh Rodrigez MD [phone] [place]: B St: REG FAX: Salvatore Means MD Name: VIVEK LÓPEZ [facility] : 1940 Age/S: 78/F [address] Unit #: [id number] Loc: [place] [address] Phys: Salvatore Means MD Acct: [id number] Dis Date: Status: REG ER PHONE #: [phone] Exam Date: 10/09/2018 1116 FAX #: [phone] Reason: SOB EXAMS: CPT CODE: [id number] XR CHEST 1 V 03453 REASON FOR EXAM: SOB Exam Order Date: 10/09/2018 10:36 AM Ordering M.D.: Salvatore Means MD PROCEDURE: - XR CHEST 1 V COMPARISON: None FINDINGS: Patient is intubated. The ET tube terminates 2.4 cm above the ryan. Enteric suction tube terminates in the midesophagus. This should be advanced by at least 16 cm. There are patchy airspace opacities in the left retrocardiac space and in the perihilar and infrahilar right lung. No pleural effusion or pneumothorax. There are also Kg B lines present in the lower lungs suggesting interstitial pulmonary edema. Cardiomediastinal silhouette is mildly enlarged. Degenerative changes are present in the spine. There is a vascular stent graft projecting over the left scapula. There has been a prior cholecystectomy. IMPRESSION: Lines and tubes as above. Advancement of enteric suction to by 16 cm is recommended. Patchy airspace opacities as described above may represent any combination of pulmonary edema and/or multifocal pneumonia. at 1138 Reported and signed by: Navin Butt MD CC: Harsh Gan; Salvatore Means MD Technologist: Kasandra Keen(Daysi) Trnscrd Date/Time/By: 2018 (3534) : By: [email or web address] Orig Print D/T: S: 10/09/2018 (1247) PAGE 1 Signed Report - XR CHEST 1 [id number] 11:38:00 FAX: Harsh Rodrigez MD [phone] [place]: B St: ADM FAX: Salvatore Means MD Name: VIVEK FINNEY [facility] : 1940 Age/S: 78/F [address] [facility] Unit #: [id number] Loc: [address] [place] [address] Phys: Salvatore Means MD Acct: [id number] Dis Date: Status: ADM IN PHONE #: [phone] Exam Date: 10/09/2018 1116 FAX #: [phone] Reason: SOB EXAMS: CPT CODE: [id number] XR CHEST 1 V 21016 REASON FOR EXAM: SOB Exam Order Date: 10/09/2018 10:36 AM Ordering M.D.: Salvatore Means MD PROCEDURE: - XR CHEST 1 V COMPARISON: None FINDINGS: Patient is intubated. The ET tube terminates 2.4 cm above the ryan. E nteric suction tube terminates in the midesophagus. This should be advance d by at least 16 cm. There are patchy airspace opacities in the le ft retrocardiac space and in the perihilar and infrahilar right lung. No p leural effusion or pneumothorax. There are also Kg B lines present in the lower lungs suggesting interstitial pulmonary edema. Car diomediastinal silhouette is mildly enlarged. Degenerative changes are present in the spine. There is a vascular stent graft projecting over the left scapula. There has been a prior cholecystectomy. IMPRESSION: Lines and tubes as above. Advancement of enteric grullon ction to by 16 cm is recommended. Patchy airspace opacities as d escribed above may represent any combination of pulmonary edema and/or m ultifocal pneumonia. Electronically Signed by Navin Butt MD on 04/2018 at 1138 Reported and signed by: Navin Butt MD CC: Harsh Gan; Salvatore Means MD Technologist: Kasandra Keen(Daysi) Trnscrd Date/Time/By: 2018 (1138) : By: [email or web address] Orig Print D/T: S: 10/09/2018 (2781) PAGE 1 Signed Report PROCALCITONIN (PCT)2018-10-09 10:36:00* Test Item Value Reference Range Interpretation Comments PROCALCITONIN (PCT) (test code = PROCAL) 0.13 ng/ml Concentration Interpretation (ng/mL) <0.51 Sepsis is not likely. Local bacterial infection is possible. (LOW RISK for progression to Sepsis) 0.51 - 2.00 Sepsis is possible, but other conditions are known to elevate PCT as well. (MODERATE RISK for progression to Sepsis) > 2.00 Sepsis is likely, unless other causes are known. (HIGH RISK for progression to Severe Sepsis or Septic Shock) 10.00 High likelihood of Severe Sepsis or Septic or higher Shock. *Increased PCT levels may not always be related to systemic bacterial infection.*Low PCT levels do not automatically exclude the presence of bacterial infection.*All results should be interpreted taking into account the patients history. TSH REFLEX TO [id number] 10:33:00* Test Item Value Reference Range Interpretation Comments TSH REFLEX TO FT4 (test code = TSHREFLEX) 3.0 0.4-5.5 N LACTIC [id number] 10:20:00* Test Item Value Reference Range Interpretation Comments LACTIC ACID (test code = LACT) 3.3 mmol/L 0.4-1.9 HH Results called to [id number] by SANDRA 10/09/18 1020Critical results verified and read back by Nurse? Y [id number] 10:18:00* Test Item Value Reference Range Interpretation Comments MAGNESIUM (test code = MAG) 2.1 mg/dL 1.8-2.4 N POC LACTIC [id number] 09:57:00* Test Item Value Reference Range Interpretation Comments POC LACTIC ACID (test code = POCLAC) 3.46 MMOL/L 0.4-2.2 H [id number] 09:41:00* Test Item Value Reference Range Interpretation Comments GLUBED (test code = GLUBED) 256 mg/dL 74-106 H Performed by certified matrix bath operator at [facility] - CT ABD PELVIS W/O [id number] 08:13:00 Name: VIVEK FINNEY [facility] : 1940 Age/S: 72 / F [address] [facility] Unit #: [id number] Loc: [place] [address] Phys: Debo Alfred MD Acct: [id number] Dis Date: Status: UNK PHONE #: [phone] Exam Date: 09/26/2012 0045 FAX #: [phone] Reason: ABD PAIN, VOMITING EXAMS: CPT CODE: [id number] CT ABD PELVIS W/O CONT 81633 HISTORY: Abdominal pain, vomiting TECHNIQUE: Axial tomograms through the abdomen and pelvis were obtained without IV contrast Precontrast images of the abdomen were obtained as well. COMPARISON: None available time of interpretation. FINDINGS: Mild bibasilar atelectasis. Coronary artery calcifications. Minimal pericardial thickening or slight effusion. Status post cholecystectomy. Prominence of the bilateral ureters without an obstructing stone or lesion noted. Multiple calcifications are seen within the uterus that likely represents fibroid change. Normal-appearing appendix. Visualized loops of large and small bowel demonstrate an unremarkable appearance. There are 2-3 adjacent ventral hernias containing omental fat with a wide neck. Collectively, this hernia measures proximately 5.0 x 12.3 x 10.0 cm. Scattered atherosclerotic calcifications are seen within the abdominal aorta and branch vessels. There is a 1.2 cm exophytic cyst seen extending off of the midportion of the right kidney. Mild fullness of both ureters with a distended urinary bladder. No obstructing stone or lesion is noted. The liver, spleen, pancr eas, and adrenal glands demonstrate an unremarkable appearance. IMPRESSION: 1. Mild prominence of both ureters with a distended urinary bladder. PAGE 1 S igned Report (CONTINUED) Name: VIVEK FINNEY [facility] : 1940 Age/S: 72 / F [id number] [facility] Unit #: [id number] Loc: [place], [place] [address] Phys: Debo Alfred MD Acct: [id number] Dis Date: Status: UNK PHONE #: [phone] Exam Date: 09/26/2012 0045 FAX #: [phone] Reason: ABD PAIN, VOMITING EXAMS: CPT CODE: [id number] CT ABD PELVIS W/O CONT 07075 <Continued> No obstructing stone or lesion is noted. 2. Ventral hernia containing omental fat with measurements provided above. 3. Normal-appearing appendix. 4. Atherosclerotic disease. 5. Status post cholecystectomy. Preliminary read provided by Dr. Garza on 09/26/2012. at 0813 Reported and signed by: Toni Edouard M.D. CC: Technologist:RT TINO CTDI: 10.36 DLP: 505.02 Trnscb Date/Time: 09/26/2012 (812) [id number] Orig Print D/T: S: 09/26/2012 (816) PAGE 2 Signed Report
[2019-09-09 20:48] LABS: CREATINE KINASE MB 2.5 ng/mL (0-5.0)
[2019-09-09 21:00] VITALS: BP 143/72
[2019-09-09] MEDS: INSULIN REGULAR, HUMAN 100 UNIT/1 ML 3ML VIAL SQ SCH (21:00)
[2019-09-09] MEDS ORDERED: NALOXONE HCL INJ 0.4 MG/ML AMP IV PRN (22:45)
[2019-09-09] MEDS ORDERED: MORPHINE SULFATE 2 MG/ML SYR 1ML IV PRN (22:45)
[2019-09-09 23:00] VITALS: BP 215/90
[2019-09-09 23:08] VITALS: BP 143/72
[2019-09-10] VITALS (8 sets, daily range): BP systolic 106–161; BP diastolic 49–86
[2019-09-10] MEDS ORDERED: ASPIRIN81 MG (02:35)
[2019-09-10] MEDS ORDERED: SERTRALINE HCL50 MG PO (02:35)
[2019-09-10] MEDS ORDERED: CETIRIZINE HCL10 M1 (02:35)
[2019-09-10] MEDS ORDERED: PRILOSEC10 M1 ×2 (02:35)
[2019-09-10] MEDS ORDERED: AURYXIA210 MG (02:35)
[2019-09-10] MEDS ORDERED: MINOXIDIL2.5 MG PO (02:35)
[2019-09-10] MEDS ORDERED: CARVEDILOL3.125 MG PO (02:35)
[2019-09-10] MEDS ORDERED: BENZONATATE100 MG PO (02:35)
[2019-09-10] MEDS ORDERED: ATORVASTATIN CA20 MG PO (02:35)
[2019-09-10] MEDS ORDERED: ONDANSETRON HCL4 MG SL (02:35)
--- NOTE | 2019-09-10 02:51 | NUR ---
PT IS TRANSFERRED FROM ER AOX3 ,BEDRIDDEN RESPIRATIONS ARE EVEN AND UNLABORED SKIN WARM AND DRY TO TOUCH .PT HAS F/C DRAINING CLEAR URINE DENIES PAIN FAMILY A THE BEDSIDE ASSESSMENT DONE ORIENT THE PT TO THE ENVIRONMENT .CALL LIGHT WITH IN LEFT UPPER ARM AV GRAFT RT AC IV LINE S/L ,CALL LIGHT WITH IN REACH .CONTINUE TO MONITOR
[2019-09-10] MEDS ORDERED: SODIUM CHLORIDE 0.9% 250ML 250 ML ONE (05:23)
[2019-09-10] MEDS: VANCOMYCIN 500MG/NS 0.9% 100ML 100 ML IV SCH ×2 (06:00→16:38)
--- NOTE | 2019-09-10 06:02 | NUR ---
PT DENIES ABD PAIN NOW ,NO ACUTE DISTRESS NOTED ,CALL LIGHT WITH IN REACH ,CONTINUE TO MONITOR
--- NOTE | 2019-09-10 07:25 | NUR ---
BEDSIDE REPORT GIVEN TO THE ONCOMING NURSE
[2019-09-10] MEDS: INSULIN REGULAR, HUMAN 100 UNIT/1 ML 3ML VIAL SQ SCH ×4 (07:30→20:44)
--- NOTE | 2019-09-10 11:37 | NUR ---
H&P cc: left hip abnormality HPI: 78yoF, PCP , initially p/w abdominal discomfort, found to have pulmonary edema, pericardial effusion and left hip fluid collection adjacent to prosthesis. Ortho consulted. Also fluid overload, with findings of CHF exa; does receive HD. PMH: HLD, Hypertensive heart ds, mood d/o, left hip repair, ESRD on HD, Diabetic nephropathy PSxh: left hip Allergies; see emr Fh/SH; daughter involved in care; no cigs Meds; see MAR ROS; unreliable v/s revd PE tired appearing anicteric ns1s2 mod bs soft nd nt; Ventral hernia, nontender left arm bruit/fistula no leg edema skin dry flat affect awake; moore labs/meds revd A/P: 78yoF Left hip abnormality/fluid collection- IR for drainage/studies; ortho on board Pulm edema- no resp distress Pericardial effusion- check echo AECHF- check echo; fluid removal via HD Cardiomegaly- as above Hypertensive heart ds- antiHTN meds HLD-statin Mood d/o- cont home med ESRD on HD- consult nephr Diabeic nephroathy- check hba1c/lipids Venral abdominal hernia- nontender; Prop: scd Dispo: f/u IR; check echo.
[2019-09-10 12:20] LABS: CHOL/HDL RATIO 2.6 (3.0-3.6)
--- NOTE | 2019-09-10 13:03 | NUR ---
Called dialysis Addendum: 09/10/19 at 1306 by KALPESH WHITE RN Shayna at for Dr. Matias for dialysis today
[2019-09-10] MEDS ORDERED: SODIUM CHLORIDE 0.9% 1000ML 2,000 ML ONE (15:12)
--- NOTE | 2019-09-10 16:00 | Diagnostic Imaging Report ---
CT Guided percutaneous aspiration of a left hip region fluid collection. History: Status post left hip ORIF. Of fluid collection in the region of the left greater trochanter seen on the previous CT. Aspiration is requested. Ultrasound-guided aspiration was unsuccessful. Therefore CT guided aspiration was performed. Furnace Repairer Helper: Ady Villegas MD. Unarmed Security Officer: None. Modality: CT DOSE REDUCTION: The examination was performed according to departmental dose-optimization program which includes automated exposure control, adjustment of the mA and/or kV according to patient size and/or use of iterative reconstruction technique. Radiation dose: 482 mGy-cm. Sedation: No sedation was used. Vital signs were monitored throughout the procedure by a dedicated RN under direct supervision of Dr. Villegas, and remained stable. Physician intra-service sedation time: Not applicable minutes. Anesthesia: Lidocaine local infiltration. Estimated blood loss: < 5 cc. Technique: Informed written consent was obtained. Discussion of risks, benefits, and alternatives were made with the patient. The patient expressed understanding and agreed to proceed. A universal timeout was performed prior to starting the procedure. The room personnel used personal protective equipment. The operators used sterile gloves in addition. The patient was laid supine on the CT table. A preliminary CT scan was performed through the region of interest to localize the target. A limited CT was performed through the region of interest with a marking grid in place to determine an access site, depth and angle. The site was prepped with chlorhexidine gluconate and draped in a maximal sterile fashion. After local anesthesia a dermatotomy was performed. Using CT guidance, an 18-gauge needle was advanced into the target. Cranberry juice colored cloudy fluid was recovered. Approximately 90 cc of fluid was aspirated and the access needle withdrawn. An aseptic dressing was applied. The patient was transferred to the recovery area and then discharged from the department in stable condition. Complications: None immediate. Specimen: The specimen was submitted to Pathology. Impression: Successful CT guided percutaneous aspiration of a left hip post ORIF abscess aspiration. Cranberry juice colored cloudy fluid was recovered. Amount of fluid aspirated was 90 cc. Specimen was sent to the lab for examination. Thank you for the opportunity to assist in the care of your patient. Signed by: Ady Villegas MD on 09/10/2019 3:57 PM
[2019-09-10 16:31] LABS: BODY FLUID APPEARANCE TURBID; BODY FLUID COLOR RED; BODY FLUID TYPE ASPIRATE
[2019-09-10 16:32] LABS: RBC,BODY FLUID 11880 cells/uL; WBC,BODY FLUID 1287 cells/uL
[2019-09-10] MEDS: CEFEPIME 1GM/NS 0.9% 50 ML 50 ML IV SCH ×2 (17:00→20:00)
[2019-09-10] MEDS: CARVEDILOL 3.125 MG TAB PO SCH (17:00)
[2019-09-10 18:22] LABS: LYMPHOCYTES,BODY FLUID 6 %; MONO/MACROPHG,BODY FLUID 11 %; NEUTROPHILS,BODY FLUID 83 %
--- NOTE | 2019-09-10 19:34 | NUR ---
RECEIVED PT IN BED AOX3 RECEIVING DIALYSIS ,NO ACUTE DISTRESS NOTED ,CALL LIGHT WITH IN REACH ,CONTINUE TO MONITOR
[2019-09-10] MEDS: ATORVASTATIN 20 MG TAB PO SCH (21:00)
--- NOTE | 2019-09-10 22:20 | NUR ---
Cardiology Consult Dictation# [id number]
[2019-09-11] VITALS (7 sets, daily range): BP systolic 117–200; BP diastolic 48–73
--- NOTE | 2019-09-11 02:52 | Consultation ---
DATE OF CONSULTATION: 09/10/2019 Cardiology Consultation REQUESTING PHYSICIAN: Gonzalo Camarena MD REASON FOR CONSULTATION: Pericardial effusion. HISTORY OF PRESENT ILLNESS: This is a 78-year-old woman with history of hypertension, hyperlipidemia, diabetes mellitus, and end-stage renal disease, on hemodialysis, who presents with complaints of abdominal pain. The patient reports that she developed abdominal pain yesterday at 2 a.m. She states this was 8/10 in severity and associated with nausea and vomiting. She did not note any alleviating or aggravating factors. The pain lasted all day and progressively worsened, so she presented to the ER for further evaluation. Evaluation in the ER included a CT abdomen and pelvis, which demonstrated a fluid collection lateral to the left greater trochanter, concerning for abscess versus septic joint effusion. In addition, there was cardiomegaly with pulmonary edema and moderate pericardial effusion. Cardiology is therefore consulted for further evaluation. She denies any chest pain, shortness breath, palpitations, edema, orthopnea, or PND. She denies any lightheadedness or syncope. REVIEW OF SYSTEMS: Negative except as per HPI. PAST MEDICAL HISTORY: 1. Hypertension. 2. Hyperlipidemia. 3. Diabetes mellitus. 4. End-stage renal disease, on hemodialysis. PAST SURGICAL HISTORY: 1. Cholecystectomy. 2. Left hip surgery. ALLERGIES: PLEASE SEE EMR. MEDICATIONS: Please see medication list. SOCIAL HISTORY: Denies tobacco, alcohol, or illicit drugs. FAMILY HISTORY: Pertinent for sister with myocardial infarction. PHYSICAL EXAMINATION: VITAL SIGNS: Temperature 97.4 degrees, pulse 84, respiratory rate 16, blood pressure 146/86, and oxygen saturation 100% on 2 L nasal cannula. GENERAL: Elderly woman, in no acute distress. Well developed, well nourished. HEENT: Normocephalic, atraumatic. Pupils are equal. No scleral icterus. NECK: Supple. No thyromegaly or cervical lymphadenopathy. No carotid bruits. LUNGS: Clear to auscultation bilaterally. No wheeze or crackles. HEART: Normal rate, regular rhythm. No murmur. Normal S1, S2. ABDOMEN: Soft, nontender. EXTREMITIES: No edema. NEUROLOGIC: Nonfocal exam. LABORATORY DATA: 1. WBC 7.84, hemoglobin 10.5, hematocrit 34.2, platelets 204. Sodium 134, potassium 3.7, chloride 94, CO2 of 23, BUN 28, creatinine 4.83. BNP 1972. Troponin 0.061. 2. EKG normal sinus rhythm. Nonspecific ST abnormality. IMPRESSION: 1. Abdominal pain. 2. Pericardial effusion. 3. Pulmonary edema. 4. Hypertension. 5. Hyperlipidemia. 6. Diabetes mellitus. 7. End-stage renal disease, on hemodialysis. RECOMMENDATIONS: The patient has no evidence of myocardial infarction at this time. Repeat troponin. Given pericardial effusion as well as pulmonary edema, suspect the patient needs more ultrafiltration, we will discuss with Nephrology as the dose needed to diurese will be limited due to patient's end-stage renal disease. The patient's blood pressure, is for the most part, acceptable for her age. Continue current cardiac medications. Records reviewed from [place]. She likely does have coronary artery disease as she was noted to have troponin elevation last year in the setting of anemia, monitor H and H closely. Continue medical management and risk factor modification. Evaluation of fluid collection per Orthopedic Surgery. There has been abdominal discomfort per primary. Thank you for this consult. We will continue to follow. Ellen Becker MD ABS/MODL /[id number]
[2019-09-11] MEDS: VANCOMYCIN 500MG/NS 0.9% 100ML 100 ML IV SCH ×2 (05:37→17:15)
--- NOTE | 2019-09-11 06:15 | NUR ---
PT RESTED DURING THE NIGHT ,DENIES PAIN CALL LIGHT WITH IN REACH ,CONTINUE TO MONITOR
--- NOTE | 2019-09-11 06:50 | NUR ---
IM- progress note O/N see below ROS; unreliable v/s revd PE tired appearing anicteric ns1s2 mod bs soft nd nt; Ventral hernia, nontender left arm bruit/fistula no leg edema skin dry flat affect awake; moore labs/meds revd A/P: 78yoF Left hip abnormality/fluid collection- IR for drainage/studies; ortho on board Pulm edema- no resp distress Pericardial effusion- check echo AECHF- check echo; fluid removal via HD Cardiomegaly- as above Hypertensive heart ds- antiHTN meds HLD-statin Mood d/o- cont home med ESRD on HD- consult nephr Diabeic nephroathy- check hba1c/lipids Venral abdominal hernia- nontender; Prop: scd Dispo: f/u IR; check echo. 8-5 Hba1c 5.1; f/u echo; Hematoma at left hip JESUS MANUEL HOLLINS MD, PHD.
--- NOTE | 2019-09-11 07:06 | NUR ---
BEDSIDE REPORT GIVEN TO THE ONCOMING NURSE
[2019-09-11] MEDS: INSULIN REGULAR, HUMAN 100 UNIT/1 ML 3ML VIAL SQ SCH ×4 (07:30→21:00)
[2019-09-11] MEDS: PANTOPRAZOLE SOD 40 MG TABEC PO SCH (09:53)
[2019-09-11] MEDS: SERTRALINE HCL 50 MG TAB PO SCH (09:54)
[2019-09-11] MEDS: CARVEDILOL 3.125 MG TAB PO SCH ×2 (09:54→17:14)
--- NOTE | 2019-09-11 16:34 | NUR ---
Discontinuing PT services since patient met goals. Thank you Addendum: 09/11/19 at 1635 by Arsalan nguyen PT Amended: Links added.
--- NOTE | 2019-09-11 18:49 | Consultation ---
DATE OF CONSULTATION: Renal Consultation Thank you Dr. Camarena for the consult. HISTORY OF PRESENT ILLNESS: Ms. Diop is a pleasant 78-year-old female patient with past medical history significant for diabetes mellitus, hypertension, end-stage renal disease, on hemodialysis Monday, , Monday at [facility] under the care of Dr. Albrecht. Patient's admin assistant does not come to this hospital. Renal consultation has been asked for to provide her dialysis while she is here. The patient came in yesterday with nonspecific abdominal pain, is being evaluated for such. The patient had her dialysis treatment yesterday and appears to be quite stable today showing next dialysis treatment will be tomorrow. Currently, no fever, no chills. No nausea, no vomiting, no diarrhea. No dysuria, frequency, or urgency of urination. No other specific symptoms. PAST MEDICAL HISTORY: As outlined above. MEDICATIONS: She takes aspirin, atorvastatin, carvedilol, minoxidil, sertraline, insulin. FAMILY HISTORY: Noncontributory. SOCIAL HISTORY: No tobacco. No alcohol use. Current medications as outlined above. REVIEW OF SYSTEMS: See HPI. Otherwise, all systems negative. ALLERGIES: PENICILLIN. PHYSICAL EXAMINATION: VITAL SIGNS: Blood pressure is 148/57, 70 pulse, afebrile. HEENT: No cervical lymphadenopathy. NECK: Supple without masses. No obvious JVD. Moist-appearing oral mucosa. SKIN: Moist with good skin turgor. CHEST: Chest wall good expansion. No chest wall tenderness. LUNGS: Clear to auscultation bilaterally. CARDIOVASCULAR: S1 and S2. No gallop, rubs, or murmur. ABDOMEN: Soft. Positive bowel sounds. Nontender. No organomegaly EXTREMITIES: There is no evidence of lower extremity edema. No clubbing. No cyanosis. NEUROLOGIC: Awake, alert, and oriented x3. Grossly nonfocal exam. LABORATORY DATA: Chemistries from 09/08, potassium was 3.7, BUN 28, creatinine 4.8. IMPRESSION AND PLAN: 1. End-stage renal disease. We will continue to provide dialysis Monday, , and Monday. Next dialysis will be tomorrow. 2. Hypertension. Blood pressure is currently stable, controlled. 3. Anemia of chronic disease, stable. Continue to monitor. 4. Abdominal plain. Plan would be as per primary MD recommendation. Thank you once again for the consultation. We will follow the patient closely along with you and make further recommendations. Hunter Matias MD TH/MODL /[id number] cc: Gonzalo Camarena MD
--- NOTE | 2019-09-11 19:22 | NUR ---
Change of shift report given to Kristi Johnston RN.
--- NOTE | 2019-09-11 20:00 | NUR ---
Received change of shift report from AM nurse. Walking rounds completed.
--- NOTE | 2019-09-11 20:10 | Progress Note ---
DATE: 09/11/2019 Cardiology Progress Note. SUBJECTIVE: The patient denies chest pain or shortness of breath. OBJECTIVE: VITAL SIGNS: Temperature 97.9 degrees, pulse 70, respiratory rate 17, blood pressure 148/57, and oxygen saturation 100% on 2 L nasal cannula. GENERAL: Elderly woman, in no acute distress. Awake and alert. LUNGS: Clear to auscultation bilaterally. No wheezes or crackles. CARDIOVASCULAR: Normal rate, regular rhythm. No murmur. Normal S1, S2. ABDOMEN: Soft and nontender. EXTREMITIES: No edema. CARDIAC MEDICATIONS: 1. Carvedilol 3.125 mg p.o. b.i.d. 2. Atorvastatin 20 mg p.o. at bedtime. LABORATORY DATA: None today. TELEMETRY: Telemetry was personally reviewed and interpreted revealing normal sinus rhythm. IMPRESSION: 1. Pericardial effusion. 2. Pulmonary edema. 3. Hypertension. 4. Hyperlipidemia. 5. Diabetes mellitus. 6. Abdominal pain. 7. End-stage renal disease, on hemodialysis. RECOMMENDATIONS: The patient ruled out for myocardial infarction with serial cardiac biomarkers. Echocardiogram was reviewed, diastolic collapse of the right atrium is observed; however, the patient is hemodynamically stable and pericardial effusion is too small to access. Stop minoxidil upon when the patient is ready to discharge. Recommend increasing carvedilol at this time and adding calcium channel db if necessary. We will discuss with Nephrology, additional ultrafiltration given elevated BNP and pulmonary edema. The patient's blood pressure is reasonable given her age. Continue current cardiac medications. The patient likely has coronary artery disease that she has not had troponin elevation last year in the setting of anemia. Monitor H and H closely. If stable, recommend resuming aspirin. Please also resume atorvastatin. Continue medical management and risk factor modification. The patient has undergone aspiration of the fluid collection. Further recommendations per Orthopedic surgery. Thank you for this consult. We will continue to follow. Ellen Becker MD ABS/MODL /[id number]
--- NOTE | 2019-09-11 20:12 | NUR ---
Patient very lethargic. BS at 29. Given 1amp of d50 via IV. Continue monitor.
[2019-09-11] MEDS: ATORVASTATIN 20 MG TAB PO SCH (21:00)
[2019-09-12] VITALS (7 sets, daily range): BP systolic 114–196; BP diastolic 46–80
[2019-09-12 05:15] LABS: BASOPHILS % 0.4 % (0.0-1.0); EOSINOPHILS # (AUTO) 0.2 (0.0-0.4); EOSINOPHILS % 3.4 % (0.0-6.0); HEMATOCRIT 30.2 % (34.2-44.1); HEMOGLOBIN 9.5 g/dL (12.0-16.0); LYMPHOCYTES # (AUTO) 1.1 (1.0-3.2); LYMPHOCYTES % 19.7 % (18.0-39.1); MEAN CORPUSCULAR HGB CONC 31.5 g/dL (31-35); MEAN CORPUSCULAR VOLUME 95.3 fL (81-99); MONOCYTES # (AUTO) 0.8 (0.2-0.8); MONOCYTES % 14.5 % (4.4-11.3); NEUTROPHILS # (AUTO) 3.4 (2.1-6.9); NEUTROPHILS % 61.5 % (38.7-80.0); PLATELET COUNT 162 x10e3/uL (140-360); RED BLOOD COUNT 3.17 x10e6/uL (3.6-5.1); RED CELL DISTRIBUTION WIDTH 19.4 % (11.7-14.4)
[2019-09-12] MEDS: VANCOMYCIN 500MG/NS 0.9% 100ML 100 ML IV SCH ×2 (05:24→18:00)
[2019-09-12 05:32] LABS: ANION GAP 16.6 mmol/L (8-16); CALCIUM 7.8 mg/dL (8.4-10.2); CREATININE, SERUM 4.27 mg/dL (0.57-1.11); MAGNESIUM 2.1 MG/DL (1.3-2.1); PHOSPHORUS 4.5 MG/DL (2.3-4.7); POTASSIUM 3.6 mmol/L (3.5-5.1)
--- NOTE | 2019-09-12 06:28 | NUR ---
IM- progress note O/N see below ROS; unreliable v/s revd PE tired appearing anicteric ns1s2 mod bs soft nd nt; Ventral hernia, nontender left arm bruit/fistula no leg edema skin dry flat affect awake; moore labs/meds revd A/P: 78yoF Left hip abnormality/fluid collection- IR for drainage/studies; ortho on board Pulm edema- no resp distress Pericardial effusion- check echo AECHF- check echo; fluid removal via HD Cardiomegaly- as above Hypertensive heart ds- antiHTN meds HLD-statin Mood d/o- cont home med ESRD on HD- consult nephr Diabeic nephroathy- check hba1c/lipids Venral abdominal hernia- nontender; Prop: scd Dispo: f/u IR; check echo. 8-5 Hba1c 5.1; f/u echo; Hematoma at left hip 8-6 control BP by doubling carvedilol; Echo normal except Small pericardial effusion. JESUS MANUEL HOLLINS MD, PHD.
[2019-09-12] MEDS: INSULIN REGULAR, HUMAN 100 UNIT/1 ML 3ML VIAL SQ SCH ×4 (07:30→21:00)
[2019-09-12] MEDS ORDERED: SODIUM CHLORIDE 0.9% 1000ML 2,000 ML ONE (08:18)
--- NOTE | 2019-09-12 08:43 | Diagnostic Imaging Report ---
EXAM: CHEST SINGLE (PORTABLE) DATE: 09/12/2019 6:40 AM INDICATION: Shortness of breath, CHF COMPARISON: 09/09/2019 FINDINGS: The trachea is midline. There is been interval decrease in interstitial prominence from the prior examination suggesting improving edema. There is no evidence for new or focal consolidation, pneumothorax, or significant pleural effusion. The cardiomediastinal silhouette is stable in appearance. Vascular calcium location noted of the thoracic aorta. Left subclavian vascular stent again noted. No acute osseous abnormalities identified. IMPRESSION: Interval decrease in interstitial prominence suggesting improving edema. No evidence for new focal consolidation or significant pleural effusion. Signed by: Dr. Bc Platt MD on 09/12/2019 8:39 AM
[2019-09-12] MEDS ORDERED: CARVEDILOL 12.5 MG TAB PO SCH (09:00)
--- NOTE | 2019-09-12 10:33 | Progress Note ---
DATE: 09/12/2019 Renal Progress Note SUBJECTIVE: The patient follows for end-stage renal disease, dialysis on Monday, , and Monday. The patient did have interstitial edema on chest x-ray on presentation, however, today, the chest x-ray looks better. The patient will have about 3 to 4 L of fluid removal during dialysis today. No nausea. No vomiting. No shortness of breath. OBJECTIVE: VITAL SIGNS: Have been noted and are stable. LUNGS: Minimal rales at the base bilaterally. CARDIOVASCULAR: S1 and S2. No rub. ABDOMEN: Soft and nontender. EXTREMITIES: No edema. LABORATORY DATA: Potassium 3.6, creatinine 4.27, and BUN 23. IMPRESSION AND PLAN: 1. End-stage renal disease. Continue dialysis Monday, , and Monday. 2. Hypertension. Blood pressure stable. 3. Anemia of chronic, stable. Hunter Matias MD /MOD /[id number]
[2019-09-12] MEDS ORDERED: SODIUM CHLORIDE 0.9% 1000ML 2,000 ML IV PRN (11:45)
[2019-09-12] MEDS: CARVEDILOL 12.5 MG TAB PO SCH ×2 (13:52→18:33)
[2019-09-12] MEDS: PANTOPRAZOLE SOD 40 MG TABEC PO SCH (13:52)
[2019-09-12] MEDS: SERTRALINE HCL 50 MG TAB PO SCH (13:53)
--- NOTE | 2019-09-12 15:10 | Progress Note ---
DATE: 09/12/2019 Cardiology Progress Note SUBJECTIVE: The patient denies chest pain or shortness of breath. OBJECTIVE: VITAL SIGNS: Temperature 97.9 degrees, pulse 80, respiratory rate 17, blood pressure 186/80, oxygen saturation 100% on 2 L nasal cannula. GENERAL: Elderly woman, in no acute distress. Awake and alert. LUNGS: Clear to auscultation bilaterally. No wheeze or crackles. CARDIOVASCULAR: Normal rate, regular rhythm. No murmur. Normal S1, S2. ABDOMEN: Soft, nontender. EXTREMITIES: No edema. CARDIAC MEDICATIONS: Cardia 12.5 mg p.o. b.i.d., atorvastatin 20 mg p.o. at bedtime. LABORATORY DATA: WBC 5.5, hemoglobin 9.5, hematocrit 30.2, platelets 162. Sodium 136, potassium 3.6, chloride 97, CO2 23, BUN 4.27. Telemetry was personally reviewed and interpreted, revealing normal sinus rhythm. IMPRESSION: 1. Pericardial effusion. 2. Pulmonary edema. 3. Hypertension. 4. Hyperlipidemia. 5. Diabetes mellitus. 6. Abdominal pain. 7. End-stage renal disease, on hemodialysis. RECOMMENDATIONS: The patient ruled out for myocardial infarction with serial cardiac biomarkers. Echocardiogram was reviewed. Diastolic collapse of the right atrium is observed. However, the patient is hemodynamically stable and pericardial effusion is too small to access. Stop minoxidil. Increase carvedilol for blood pressure control. Can add calcium channel db if necessary. Discussed with Nephrology additional ultrafiltration given elevated BNP and pulmonary edema on chest x-ray. Continue current cardiac medications. Monitor response to increase in carvedilol. The patient likely has coronary artery disease as she had troponin elevation last year in the setting of anemia. Monitor H and H closely. If stable, recommend adding aspirin. Please resume atorvastatin. Continue medical management and risk factor modification. Thank you for this consult. We will continue to follow Ellen Becker MD ABS/MODL /[id number]
--- NOTE | 2019-09-12 18:25 | NUR ---
Nutrition Screen Note RD Recommendation for Physician: - Continue current diet Plan of Care: RD following, monitoring for tolerance and adequacy Nutrition reason for involvement: Early LOS Primary Diagnose(s): abdominal pain PMH: HLD, HTN, ESRD on HD, DM, diabetic neuropathy Ht: 61 in Wt: 124 lb BMI: 23.4 kg/m2 IBW: [address] Assessment: (09/11) 78 YOF admitted for for abdominal pain. Pt seen today for LOS. Pt Arabic speaking only, daughter at bedside speaks minimal Moroccan and was able to provide hx. Pt with no poor po intake MA[employer]OOK or wt loss. Pt with no GI distress currently. Pt and daughter with no questions or concerns at time of visit. Chart reviewed. Labs and meds reviewed. Will continue to monitor. Current Diet: 1800 ADA, Renal diet Malnutrition Evaluation (09/12/19) The patient does not meet criteria for a specified degree of malnutrition at this time. Will re-evaluate at follow-up as appropriate. Diet Education Needs Assessment: Diet education not indicated. Diet tolerance: tolerating po Nutrition Care Level: low Signed: Melva Beaver RD, LD, [facility]
[2019-09-12] MEDS: CEFEPIME 1GM/NS 0.9% 50 ML 50 ML IV SCH (18:34)
--- NOTE | 2019-09-12 19:32 | NUR ---
Received change of shift report from AM nurse. Walking rounds completed.
[2019-09-12] MEDS: ATORVASTATIN 20 MG TAB PO SCH (21:00)
[2019-09-13] VITALS: BP 106/40
[2019-09-13 04:00] VITALS: BP 150/56
[2019-09-13] MEDS: VANCOMYCIN 500MG/NS 0.9% 100ML 100 ML IV SCH (05:16)
[2019-09-13 05:32] LABS: ANION GAP 14.8 mmol/L (8-16); CALCIUM 8.6 mg/dL (8.4-10.2); CREATININE, SERUM 2.85 mg/dL (0.57-1.11); POTASSIUM 3.8 mmol/L (3.5-5.1)
--- NOTE | 2019-09-13 06:26 | NUR ---
D/C summary Principal Dx: Left hip bursitis- steroids; Left hip abnormality/fluid collection- IR for drainage/studies; ortho on board Pulm edema- no resp distress UTI- abx; cefepime; home on keflex Pericardial effusion- check echo AECHF- check echo; fluid removal via HD Secondary Dx: Cardiomegaly- as above Hypertensive heart ds- antiHTN meds HLD-statin Mood d/o- cont home med ESRD on HD- consult nephr Diabeic nephroathy- check hba1c/lipids Venral abdominal hernia- nontender; Prop: scd Dispo: f/u IR; check echo. 8-5 Hba1c 5.1; f/u echo; Hematoma/Bursitis at left hip 8-6 control BP by doubling carvedilol; Echo normal except Small pericardial effusion. 8-7 Control BP; d/w ortho findings; d/c home pcp 2-3 days stable d/c>35mins JESUS MANUEL HOLLINS MD, PHD.
[2019-09-13] MEDS ORDERED: PREDNISONE20 MG PO (06:51)
[2019-09-13] MEDS ORDERED: KEFLEX500 MG PO (06:51)
[2019-09-13] MEDS ORDERED: CARVEDILOL12.5 MG PO (06:52)
--- NOTE | 2019-09-13 07:12 | NUR ---
Patient resting quietly at this time.
[2019-09-13] MEDS: INSULIN REGULAR, HUMAN 100 UNIT/1 ML 3ML VIAL SQ SCH (07:30)
[2019-09-13 07:43] VITALS: BP 150/56
--- NOTE | 2019-09-13 07:45 | NUR ---
PT IN BED RESTING NO S/S OF DISCOMFORT
[2019-09-13 08:00] VITALS: BP 167/59
[2019-09-13] MEDS: PANTOPRAZOLE SOD 40 MG TABEC PO SCH (08:57)
[2019-09-13] MEDS: SERTRALINE HCL 50 MG TAB PO SCH (08:57)
[2019-09-13] MEDS ORDERED: CARVEDILOL 12.5 MG TAB PO SCH (09:00)
--- NOTE | 2019-09-13 09:00 | NUR ---
Dr Camarena, Patient has been evaluated for PT and D/C'd due to goals met. Please refer to the eval forms for details. Addendum: 09/13/19 at 1416 by Michael Velasquez PT Amended: Links added.
--- NOTE | 2019-09-13 09:32 | Progress Note ---
DATE: 09/13/2019 Renal Progress Note SUBJECTIVE: Followed for end-stage renal disease. Tolerating dialysis, Monday, , and Monday. Next dialysis will be tomorrow. No nausea. No vomiting. No shortness of breath. OBJECTIVE: VITAL SIGNS: Have been noted, stable. Blood pressure 167/59, 63 pulse, afebrile. LUNGS: Clear to auscultation bilaterally. CARDIOVASCULAR: S1 and S2. No rub. ABDOMEN: Soft and nontender. EXTREMITIES: No edema. LABORATORY DATA: Hemoglobin 9.5. Potassium 3.8, BUN 12, and creatinine 2.85. IMPRESSION AND PLAN: 1. End-stage renal disease with dialysis Monday, , Monday. 2. Hypertension. Blood pressure stable. Continue to monitor. 3. Anemia of chronic disease, stable. Continue to monitor. 4. Fluid overload, largely resolved. We will continue to monitor closely. Hunter Matias MD /MODL /[id number]
[2019-09-13] MEDS ORDERED: ONDANSETRON HCL 4 MG ORAL DISINTEGRATING TAB PO PRN (10:15)
[2019-09-13 11:30] VITALS: BP 160/57
--- NOTE | 2019-09-13 12:29 | Progress Note ---
DATE: 09/13/2019 Cardiology Progress Note SUBJECTIVE: The patient denies chest pain or shortness of breath. OBJECTIVE: VITAL SIGNS: Temperature 98.7 degrees, pulse 63, respiratory rate 18, blood pressure 116/59, and oxygen saturation 100%. GENERAL: Elderly woman, in no acute distress. Awake and alert. LUNGS: Clear to auscultation bilaterally. No wheezes or crackles. CARDIOVASCULAR: Normal rate. Regular rhythm. No murmur. Normal S1 and S2. ABDOMEN: Soft and nontender. EXTREMITIES: No edema. CARDIAC MEDICATIONS: Carvedilol 25 mg p.o. b.i.d. and atorvastatin 20 mg p.o. at bedtime. LABORATORY DATA: Sodium 137, potassium 3.8, chloride 99, CO2 27, BUN 12, and creatinine 2.85. Telemetry was personally reviewed and interpreted, revealing normal sinus rhythm. IMPRESSION: 1. Pericardial effusion. 2. Pulmonary edema. 3. Hypertension. 4. Hyperlipidemia. 5. Diabetes mellitus. 6. Abdominal pain. 7. End-stage renal disease, on hemodialysis. RECOMMENDATIONS: The patient ruled out for myocardial infarction with serial cardiac biomarkers. Echocardiogram was reviewed. Diastolic collapse of the right atrium is observed. However, the patient is hemodynamically stable and pericardial effusion is too small to access. Stop minoxidil, which can cause pericardial effusion. Carvedilol has been increased for blood pressure control. Blood pressure is for the most part adequate for patient's age. Can add calcium channel db if necessary. Volume management per Nephrology given end-stage renal disease, on hemodialysis. Continue current cardiac medications. The patient likely has coronary artery disease, as she had troponin elevation last year in the setting of anemia. H and H remained stable. Would recommend adding aspirin 81 mg p.o. daily. Continue atorvastatin. Continue medical management and risk factor modification. Thank you for this consult. We will continue to follow. Ellen Becker MD ABS/MODL /[id number]
== END 2019-09-13 11:50 | disposition home or self-care (01) | DRG 557 ==
LOC: ER 14:30 → EDSEX 14:30 → ERHOLD 20:27 → MED/SURG 21:16
PROVIDERS: ADMIT Internal Medicine; ATTEND Internal Medicine
PROC: 5A1D70Z Performance of Urinary Filtration, Intermittent, Less than 6 Hours Per Day (ICD-10-PCS; principal; 2019-09-10)
PROC: 0S9 Lower Joints, Drainage (ICD-10-PCS; 2019-09-10)
DX: M70.72 Other bursitis of hip, left hip (principal); N18.6 End stage renal disease; I12.0 Hypertensive chronic kidney disease with stage 5 chronic kidney disease or end stage renal disease; I31.3 Pericardial effusion (noninflammatory); K43.9 Ventral hernia without obstruction or gangrene; E11.22 Type 2 diabetes mellitus with diabetic chronic kidney disease; Z11.59 Encounter for screening for other viral diseases; E78.5 Hyperlipidemia, unspecified; D63.1 Anemia in chronic kidney disease; R10.9 Unspecified abdominal pain; Z99.2 Dependence on renal dialysis; I25.10 Atherosclerotic heart disease of native coronary artery without angina pectoris; I25.2 Old myocardial infarction
CPT/HCPCS: 10160; 36415; 71045; 74177; 74470; 77012; 80048; 80053; 80061; 81001; 82550; 82553; 82948; 83036; 83605; 83690; 83735; 83880; 84100; 84484; 85025; 86705; 86706; 87040; 87070; 87086; 87205; 87340; 89051; 93005; 93306; 97139; 99284; J0360; J0692; J1817; J2270; J2405; J3010; J3370; J7030; J7050; J7799; Q9967; U0002

== ENCOUNTER 2020-03-26 10:20 | Emergency (ER) | payer MEDICARE ==
[~2020-03-26] VITALS: Ht 154.9 cm; Wt 56.2 kg
[~2020-03-26 10:20] MED LIST: ASPIRIN81 MG; ATORVASTATIN CA20 MG PO; AURYXIA210 MG; BENZONATATE100 MG PO; CARVEDILOL12.5 MG PO; CARVEDILOL3.125 MG PO; CETIRIZINE HCL10 M1; KEFLEX500 MG PO; MINOXIDIL2.5 MG PO; ONDANSETRON HCL4 MG SL; PREDNISONE20 MG PO; PRILOSEC10 M1; SERTRALINE HCL50 MG PO
[2020-03-26 10:54] LABS: BASOPHILS % 0.1 % (0.0-1.0); EOSINOPHILS % 0.2 % (0.0-6.0); HEMATOCRIT 35.7 % (34.2-44.1); HEMOGLOBIN 11.6 g/dL (12.0-16.0); LYMPHOCYTES # (AUTO) 0.9 (1.0-3.2); LYMPHOCYTES % 9.7 % (18.0-39.1); MEAN CORPUSCULAR HEMOGLOBIN 29.9 pg (28-32); MEAN CORPUSCULAR HGB CONC 32.5 g/dL (31-35); MONOCYTES % 10.7 % (4.4-11.3); NEUTROPHILS # (AUTO) 7.2 (2.1-6.9); PLATELET COUNT 139 x10e3/uL (140-360); RED BLOOD COUNT 3.88 x10e6/uL (3.6-5.1); RED CELL DISTRIBUTION WIDTH 16.9 % (11.7-14.4)
[2020-03-26 11:14] LABS: ALBUMIN 3.3 g/dL (3.5-5.0); ALBUMIN/GLOBULIN RATIO 0.7 (0.8-2.0); ANION GAP 23.2 mmol/L (8-16); CALCIUM 9.6 mg/dL (8.4-10.2); CREATININE, SERUM 7.81 mg/dL (0.57-1.11); POTASSIUM 4.2 mmol/L (3.5-5.1)
[2020-03-26 11:46] LABS: CREATINE KINASE MB 0.8 ng/mL (0-5.0)
[2020-03-26 13:30] VITALS: BP 5/1
== END 2020-03-26 13:31 | disposition home or self-care (01) ==
LOC: ER 12:02
DX: R10.9 Unspecified abdominal pain (principal); R11.2 Nausea with vomiting, unspecified; I12.0 Hypertensive chronic kidney disease with stage 5 chronic kidney disease or end stage renal disease; E11.22 Type 2 diabetes mellitus with diabetic chronic kidney disease; N18.6 End stage renal disease; Z99.2 Dependence on renal dialysis; E78.5 Hyperlipidemia, unspecified
CPT/HCPCS: 36415; 71045; 80053; 82550; 82553; 83690; 83880; 84484; 85025; 99284

== ENCOUNTER 2020-06-16 10:04 | Inpatient (IN) | payer MEDICARE ==
[~2020-06-16] VITALS: Ht 154.9 cm; Wt 56.2 kg
[~2020-06-16 10:04] MED LIST changes: -CETIRIZINE HCL10 M1; +CETIRIZINE HCL10 M1 PO
[2020-06-16 10:57] LABS: BASOPHILS % 0.1 % (0.0-1.0); HEMOGLOBIN 11.1 g/dL (12.0-16.0); LYMPHOCYTES # (AUTO) 0.6 (1.0-3.2); LYMPHOCYTES % 9.1 % (18.0-39.1); MEAN CORPUSCULAR HGB CONC 31.7 g/dL (31-35); MEAN CORPUSCULAR VOLUME 97.8 fL (81-99); MONOCYTES # (AUTO) 0.4 (0.2-0.8); MONOCYTES % 6.1 % (4.4-11.3); NEUTROPHILS # (AUTO) 5.7 (2.1-6.9); PLATELET COUNT 138 x10e3/uL (140-360); RED BLOOD COUNT 3.58 x10e6/uL (3.6-5.1); RED CELL DISTRIBUTION WIDTH 16.5 % (11.7-14.4)
[2020-06-16 11:15] LABS: ALBUMIN 3.8 g/dL (3.5-5.0); ALBUMIN/GLOBULIN RATIO 0.7 (0.8-2.0); ANION GAP 25.7 mmol/L (8-16); CREATININE, SERUM 5.89 mg/dL (0.57-1.11)
[2020-06-16 11:18] LABS: POTASSIUM 7.7 mmol/L (3.5-5.1)
[2020-06-16] MEDS ORDERED: SODIUM BICARBONATE 8.4% INJ 50 ML SYR IV STA (11:28)
[2020-06-16] MEDS ORDERED: CALCIUM GLUCONATE 10% INJ 4.65 MEQ in SODIUM CHLORIDE 0.9% 50ML 50 ML IV ONE (11:30)
[2020-06-16] MEDS ORDERED: SODIUM CHLORIDE 0.9% 250ML 250 ML ONE (11:54)
[2020-06-16] MEDS ORDERED: SODIUM BICARBONATE 8.4% SYRING 50 ML ONE (11:54)
[2020-06-16] MEDS ORDERED: CALCIUM GLUCONATE 10% INJ 0.465 MEQ/ML VIAL ONE (11:54)
[2020-06-16] MEDS: ONDANSETRON HCL INJ 2MG/ML 2ML 2 MG/ML VIAL IV PRN (11:56)
[2020-06-16] MEDS ORDERED: SODIUM CHLORIDE 0.9% 200 ML ONE (11:57)
[2020-06-16 20:00] VITALS: BP 175/64
[2020-06-16] MEDS: MORPHINE SULFATE INJ 4 MG/ML INJ 1ML IV PRN (20:19)
[2020-06-16] MEDS ORDERED: FLONASE ALLERG9.9 ML INH (20:29)
[2020-06-16] MEDS ORDERED: NIFEDIPINE ER30 M1 PO (20:31)
[2020-06-16] MEDS ORDERED: ONDANSETRON ODT4 MG PO (20:35)
[2020-06-16] MEDS ORDERED: CARAFATE1 GM PO (20:38)
[2020-06-16] MEDS ORDERED: COREG12.5 MG PO (20:44)
[2020-06-16 21:41] VITALS: BP 175/64
[2020-06-16 21:44] VITALS: BP 175/64
[2020-06-17] VITALS (9 sets, daily range): BP systolic 96–189; BP diastolic 39–70
[2020-06-17] MEDS: ONDANSETRON HCL INJ 2MG/ML 2ML 2 MG/ML VIAL IV PRN ×2 (00:01→10:47)
[2020-06-17] MEDS: MORPHINE SULFATE INJ 4 MG/ML INJ 1ML IV PRN (00:04)
[2020-06-17 05:46] LABS: BASOPHILS % 0.1 % (0.0-1.0); HEMATOCRIT 29.8 % (34.2-44.1); HEMOGLOBIN 9.4 g/dL (12.0-16.0); LYMPHOCYTES # (AUTO) 0.5 (1.0-3.2); LYMPHOCYTES % 7.9 % (18.0-39.1); MEAN CORPUSCULAR HEMOGLOBIN 30.4 pg (28-32); MEAN CORPUSCULAR HGB CONC 31.5 g/dL (31-35); MEAN CORPUSCULAR VOLUME 96.4 fL (81-99); MONOCYTES # (AUTO) 0.9 (0.2-0.8); MONOCYTES % 13.6 % (4.4-11.3); NEUTROPHILS # (AUTO) 5.3 (2.1-6.9); NEUTROPHILS % 78.1 % (38.7-80.0); PLATELET COUNT 140 x10e3/uL (140-360); RED BLOOD COUNT 3.09 x10e6/uL (3.6-5.1); RED CELL DISTRIBUTION WIDTH 16.8 % (11.7-14.4)
[2020-06-17 06:16] LABS: ANION GAP 25.3 mmol/L (8-16); CALCIUM 7.6 mg/dL (8.4-10.2); CREATININE, SERUM 3.35 mg/dL (0.57-1.11); POTASSIUM 4.3 mmol/L (3.5-5.1)
[2020-06-17] MEDS ORDERED: PROMETHAZINE 12.5MG/ NACL 0.9% 12.5 MG/50 ML BAG IV PRN (08:45)
[2020-06-17] MEDS: NIFEDIPINE CR 30 MG TAB PO SCH (09:00)
[2020-06-17] MEDS ORDERED: NON-FORMULARY MEDICATION (Cetirizine Hcl 10 MG) PO SCH (09:00)
[2020-06-17] MEDS: CARVEDILOL 12.5 MG TAB PO SCH ×3 (09:00→17:00)
[2020-06-17] MEDS ORDERED: NON-FORMULARY MEDICATION (Fluticasone Propionate* (Flonase Allergy Relief*) 1 EACH) INH SCH (09:00)
[2020-06-17] MEDS: ASPIRIN 81 MG CHEW TAB PO SCH (09:06)
[2020-06-17] MEDS: SUCRALFATE 1 GM TAB PO SCH (09:06)
[2020-06-17] MEDS: SERTRALINE HCL 50 MG TAB PO SCH (09:07)
[2020-06-17] MEDS: LORATADINE 10 MG TAB PO SCH (10:43)
[2020-06-17] MEDS: FLUTICASONE PROPIONATE NASAL SPRAY NS SCH (10:43)
[2020-06-17] MEDS: METRONIDAZOLE 250MG/NS 50ML 50 ML IV SCH ×2 (10:43→17:06)
[2020-06-17] MEDS ORDERED: SODIUM CHLORIDE 0.9% 250ML 250 ML ONE (10:48)
[2020-06-17] MEDS ORDERED: ATORVASTATIN 20 MG TAB PO SCH (21:00)
[2020-06-18 00:36] VITALS: BP 113/48
[2020-06-18 00:37] VITALS: BP 122/50
[2020-06-18] MEDS: METRONIDAZOLE 250MG/NS 50ML 50 ML IV SCH (01:26)
[2020-06-18 05:31] VITALS: BP 142/58
[2020-06-18 06:16] LABS: BASOPHILS % 0.4 % (0.0-1.0); EOSINOPHILS # (AUTO) 0.1 (0.0-0.4); HEMATOCRIT 32.1 % (34.2-44.1); HEMOGLOBIN 10.2 g/dL (12.0-16.0); LYMPHOCYTES # (AUTO) 1.5 (1.0-3.2); LYMPHOCYTES % 28.8 % (18.0-39.1); MEAN CORPUSCULAR HEMOGLOBIN 30.8 pg (28-32); MEAN CORPUSCULAR HGB CONC 31.8 g/dL (31-35); MONOCYTES # (AUTO) 0.9 (0.2-0.8); MONOCYTES % 18.7 % (4.4-11.3); NEUTROPHILS # (AUTO) 2.6 (2.1-6.9); NEUTROPHILS % 50.7 % (38.7-80.0); PLATELET COUNT 143 x10e3/uL (140-360); RED BLOOD COUNT 3.31 x10e6/uL (3.6-5.1); RED CELL DISTRIBUTION WIDTH 16.7 % (11.7-14.4)
[2020-06-18 06:34] LABS: ANION GAP 18.6 mmol/L (8-16); CALCIUM 7.7 mg/dL (8.4-10.2); CREATININE, SERUM 4.68 mg/dL (0.57-1.11); POTASSIUM 4.6 mmol/L (3.5-5.1)
[2020-06-18 08:00] VITALS: BP 159/65
[2020-06-18] MEDS: SERTRALINE HCL 50 MG TAB PO SCH (08:47)
[2020-06-18] MEDS: ASPIRIN 81 MG CHEW TAB PO SCH (08:47)
[2020-06-18] MEDS: LORATADINE 10 MG TAB PO SCH (08:47)
[2020-06-18] MEDS: SUCRALFATE 1 GM TAB PO SCH (08:47)
[2020-06-18 08:49] VITALS: BP 159/65
[2020-06-18] MEDS: CARVEDILOL 12.5 MG TAB PO SCH (09:00)
[2020-06-18] MEDS: NIFEDIPINE CR 30 MG TAB PO SCH (09:00)
[2020-06-18] MEDS ORDERED: SODIUM CHLORIDE 0.9% 1000ML 2,000 ML ONE (09:20)
[2020-06-18] MEDS: FLUTICASONE PROPIONATE NASAL SPRAY NS SCH (11:08)
[2020-06-18 12:00] VITALS: BP 117/56
[2020-06-18] MEDS ORDERED: ONDANSETRON HCL 4 MG ORAL DISINTEGRATING TAB PO PRN (12:45)
[2020-06-18] MEDS ORDERED: MORPHINE SULFATE INJ 4 MG/ML INJ 1ML IV PRN (13:45)
== END 2020-06-18 15:43 | disposition home or self-care (01) | DRG 640 ==
LOC: ER 10:18 → ERHOLD 11:32 → MED/SURG3 18:37 → OBSVTOIN 06-17 15:53
PROVIDERS: ADMIT Internal Medicine; ATTEND Internal Medicine
PROC: 5A1D70Z Performance of Urinary Filtration, Intermittent, Less than 6 Hours Per Day (ICD-10-PCS; principal; 2020-06-16)
DX: E87.5 Hyperkalemia (principal); N18.6 End stage renal disease; I13.2 Hypertensive heart and chronic kidney disease with heart failure and with stage 5 chronic kidney disease, or end stage renal disease; J81.1 Chronic pulmonary edema; E11.22 Type 2 diabetes mellitus with diabetic chronic kidney disease; I50.9 Heart failure, unspecified; Z99.2 Dependence on renal dialysis; K52.9 Noninfective gastroenteritis and colitis, unspecified; Z20.822 Contact with and (suspected) exposure to COVID-19
CPT/HCPCS: 36415; 74176; 80048; 80053; 82948; 83690; 84484; 85025; 86704; 86707; 87350; 93005; 93306; 99251; 99284; G0378; J0610; J2270; J2405; J7030; J7050; U0002

== ENCOUNTER 2020-07-21 17:42 | Emergency (ER) | payer MEDICARE ==
[~2020-07-21] VITALS: Ht 149.9 cm; Wt 83.9 kg
[~2020-07-21 17:42] MED LIST changes: +CARAFATE1 GM PO; +COREG12.5 MG PO; +FLONASE ALLERG9.9 ML INH; +NIFEDIPINE ER30 M1 PO; +ONDANSETRON ODT4 MG PO
[2020-07-21] MEDS ORDERED: ONDANSETRON HCL INJ 2MG/ML 2ML 2 MG/ML VIAL IV NR (18:15)
[2020-07-21 18:28] LABS: BASOPHILS % 0.3 % (0.0-1.0); HEMATOCRIT 39.2 % (34.2-44.1); HEMOGLOBIN 12.9 g/dL (12.0-16.0); LYMPHOCYTES # (AUTO) 0.7 (1.0-3.2); LYMPHOCYTES % 10.9 % (18.0-39.1); MEAN CORPUSCULAR HEMOGLOBIN 31.7 pg (28-32); MEAN CORPUSCULAR HGB CONC 32.9 g/dL (31-35); MEAN CORPUSCULAR VOLUME 96.3 fL (81-99); MONOCYTES # (AUTO) 0.4 (0.2-0.8); MONOCYTES % 6.8 % (4.4-11.3); NEUTROPHILS # (AUTO) 4.8 (2.1-6.9); NEUTROPHILS % 80.3 % (38.7-80.0); PLATELET COUNT 143 x10e3/uL (140-360); RED BLOOD COUNT 4.07 x10e6/uL (3.6-5.1); RED CELL DISTRIBUTION WIDTH 15.8 % (11.7-14.4)
[2020-07-21 18:32] LABS: ALBUMIN 4.1 g/dL (3.5-5.0); ALBUMIN/GLOBULIN RATIO 0.8 (0.8-2.0); ANION GAP 23.3 mmol/L (8-16); CALCIUM 8.9 mg/dL (8.4-10.2); CREATININE, SERUM 3.69 mg/dL (0.57-1.11); POTASSIUM 4.3 mmol/L (3.5-5.1)
[2020-07-21 18:39] LABS: CREATINE KINASE MB 1.9 ng/mL (0-5.0)
[2020-07-21] MEDS ORDERED: SODIUM CHLORIDE 0.9% 50ML 50 ML ONE (18:47)
[2020-07-21] MEDS ORDERED: IOPAMIDOL 370 MG/ML 200 ML INFUS..BTL INJ ONE (18:47)
[2020-07-21] MEDS ORDERED: CLONIDINE HCL 0.2 MG TAB PO ONE (22:00)
[2020-07-21] MEDS ORDERED: PANTOPRAZOLE SO40 MG PO (23:37)
[2020-07-22 01:58] VITALS: BP 175/89
== END 2020-07-22 01:00 | disposition home or self-care (01) ==
LOC: ER 18:01
DX: R10.13 Epigastric pain (principal); R11.2 Nausea with vomiting, unspecified; K29.70 Gastritis, unspecified, without bleeding; K29.80 Duodenitis without bleeding; Z20.822 Contact with and (suspected) exposure to COVID-19; I12.0 Hypertensive chronic kidney disease with stage 5 chronic kidney disease or end stage renal disease; E11.22 Type 2 diabetes mellitus with diabetic chronic kidney disease; N18.6 End stage renal disease; Z99.2 Dependence on renal dialysis; E78.5 Hyperlipidemia, unspecified
CPT/HCPCS: 36415; 71045; 74177; 80053; 82550; 82553; 83690; 84484; 85025; 93005; 99284; J2405; Q9967; U0002